=== PATIENT | male | born 1985 | race Caucasian/White ===

== ENCOUNTER → 2018-09-24 15:25 | Outpatient (CLI) | payer OTHER, SELFPAY ==
--- NOTE | 2018-09-24 15:44 | MRI_ITS ---
STUDY: MRI BRAIN WITH AND WITHOUT CONTRAST REASON FOR EXAM: Male, 33 years old. Vertigo, ataxia, headache. TECHNIQUE: Standardized multiplanar fat and water weighted pulse sequences were obtained. Gadavist 7 IV was administered for the contrast portion of the examination. COMPARISON: None. FINDINGS: Normal size of the ventricles and extra-axial spaces for the patient's age. Normal white matter tracts of the supratentorial brain. Normal bilateral basal ganglia. Normal thalami. There is no extra-axial fluid accumulation. Normal flow voids within the major intracranial circulation suggesting patency by spin echo criteria. Normal venous enhancement. There is no enhancing intra-axial or extra-axial abnormality. Normal sella turcica, pituitary gland, infundibular stalk, optic chiasm and hypothalamus. Normal tectal plate and pineal gland. Normal midbrain, von and medulla. Normal cerebellum. Normal basal cisterns. Normal bilateral temporal bones. Normal bilateral internal auditory canals. No demonstrated orbital abnormality, within the constraints of a routine brain study. Normal visualized paranasal sinuses. Normal calvarium and skull base. Normal visualized soft tissue structures. Normal visualized upper cervical spine. MRI/Brain W/WO Contrast IMPRESSION: Normal unenhanced and enhanced MRI of the brain. Electronically Signed: Marian Ortiz MD at 19:01 EST Tel , Service support ,
== END ==
PROVIDERS: Referring Provider Psychiatry & Neurology Neurology; Visit Provider Psychiatry & Neurology Neurology
DX: R27.0 Ataxia, unspecified (principal)
CPT/HCPCS: 70553; A9585

== ENCOUNTER 2018-10-17 10:57 | Emergency (ER) | payer OTHER, SELFPAY ==
[2018-10-17 10:57] VITALS: BP 121/88; PULSE 102; RESP 18; TEMP 36.6; O2SAT 99; BMI 22.2
--- NOTE | 2018-10-17 10:59 | NURSING ---
NO OLD EKGS
--- NOTE | 2018-10-17 11:38 | EKG12_ITS ---
Test Reason : CP Blood Pressure : / mmHG Vent. Rate : 076 BPM Atrial Rate : 076 BPM P-R Int : 148 ms QRS Dur : 100 ms QT Int : 348 ms P-R-T Axes : 076 063 048 degrees QTc Int : 391 ms Normal sinus rhythm Normal ECG Confirmed by KURT CLOUD, JOANNA ([id number]), scientific publications editor SANDY MCKEON ([id number]) on 10/22/2018 9:05:10 AM Referred By: KAYLENE/ANUP Confirmed By:JOANNA HICKS MD
--- NOTE | 2018-10-17 11:38 | RAD_ITS ---
STUDY: X-RAY CHEST REASON FOR EXAM: Male, 33 years old. Chest pressure for 2 weeks TECHNIQUE: PA and lateral views of the chest. COMPARISON: None. FINDINGS: EKG leads project over the chest. The lungs are clear but hyper expanded. There is no demonstrated pleural abnormality. Normal size heart. Normal mediastinum and tyler. Normal visualized pulmonary arteries. Normal visualized aortic arch and descending thoracic aorta. Normal visualized thoracic spine. Normal visualized ribs, clavicles, and shoulders. There is no demonstrated abnormality of the visualized soft tissue structures of the upper abdomen. RAD/Chest PA and Lateral IMPRESSION: No airspace consolidation or pleural effusion. Electronically Signed: Larry Moya MD at 12:17 EDT , Service support ,
--- NOTE | 2018-10-17 11:42 | ED.VISSUMM ---
- ER Visit Summary Date of Service: 10/17/18 Chief Complaint: Chest pain History of Present Illness: The patient is a 33 M who presents for 2 weeks of intermittent substernal chest discomfort. Patient states it is a gas-like pressure sensation that makes him feel like he has to belch. It radiates downward into the epigastrium. There is no radiation to the right or left chest, arms, neck, back. No shortness of breath, fever, cough, nausea or vomiting, back pain, or other complaints. There is no association with food or activity. Patient states the episodes are fairly consistent throughout the day. Patient has been on Topamax recently for vertigo and had his dose increased to 50 mill grams twice daily prior to onset of these symptoms. He has then been on a Z-Felix and is currently on Levaquin for otitis media from his ear nose throat doctor. Patient states he has been getting tingling in his fingers so he stopped the Topamax 2 days ago on his own. Physical Examination: Vital signs: afebrile, hemodynamically stable, no hypoxia on room air General: well nourished, well developed, in no distress Skin: warm, dry, no rash, no pallor HEENT: normocephalic and atraumatic; PERRL, EOMI, moist mucous membranes Cardiovascular: regular rate and rhythm without murmurs, no peripheral edema, 2+ pulses all distal extremities Respiratory: No increased work of breathing, lungs are clear to auscultation bilaterally, no rales, rhonchi or wheezing Abdominal: Abdomen is soft, nontender with normoactive bowel sounds, no guarding or rebound, no masses MSK: Moves all extremities, no deformities, normal strength Neuro: Awake and alert, oriented ?4. No facial droop, sensation and motor function intact and symmetric Test Results: Abnormal Lab Results 10/17/18 10/17/18 11:15 11:15 WBC 4.2 L RBC 5.14 Hgb 15.8 Hct 44.4 MCV 86.4 MCH 30.7 MCHC 35.6 RDW 11.4 L RDW Differential 35.4 Plt Count 208 MPV 11.1 Immature Gran % (Auto) 0.200 Neut % (Auto) 49.8 Lymph % (Auto) 39.2 [place] % (Auto) 10.4 H Eos % (Auto) 0.2 Baso % (Auto) 0.2 Absolute Neuts (auto) 2.1 Absolute Lymphs (auto) 1.66 Total Counted Not Reportable Sodium 141 Potassium 3.4 L Chloride 110 H Carbon Dioxide 25.0 Anion Gap 6 BUN 17 Creatinine 1.00 Estim Creat Clear Calc 104.48 Est GFR (MDRD) Af Amer 111 Est GFR (MDRD) Non-Af 92 BUN/Creatinine Ratio 17.1 Glucose 87 Calcium 8.8 Magnesium 2.1 Total Bilirubin 1.40 H AST 18 ALT 23 Alkaline Phosphatase 75 Troponin I < 0.015 Total Protein 7.5 Albumin 4.4 Globulin 3.1 Albumin/Globulin Ratio 1.4 TSH 2.35 Clinical Impression(s) from Imaging Studies Chest X-Ray 10/17/18 11:38 IMPRESSION: No airspace consolidation or pleural effusion. Electronically Signed: Larry Moya MD at 12:17 EDT , Service support , Medications Given Discontinued Medications Al Hydroxide/Mg Hydroxide (Mylanta Ii) 30 ml PO X1 ONE Stop: 10/17/18 11:42 Last Admin: 10/17/18 11:54 Dose: 30 ml Lidocaine HCl (Xylocaine Viscous) 15 ml PO X1 ONE Stop: 10/17/18 11:42 Last Admin: 10/17/18 11:54 Dose: 15 ml Multi-Ingredient GI Drug () 1 each PO X1 ONE Stop: 10/17/18 11:42 Last Admin: 10/17/18 11:55 Dose: 1 each Emergency Department Course and Treatment: Patient's symptoms seem more consistent with a gastrointestinal issue rather than a cardiac issue. Patient is young and healthy and has no risk factors for coronary artery disease. Patient is also been on multiple medications that could have GI side effects. Patient's EKG showed a sinus rhythm without any ischemia, ectopy or QTC prolongation. Chest x-ray showed no acute process. Labs showed no leukocytosis, no significant electrolyte derangements, no hepatic dysfunction. Troponin negative. Thyroid function within normal limits. On reevaluation, patient's upper abdominal complaints had resolved and now he was complaining of a gassy pressure in his lower abdomen. We discussed patient following up with his neurologist to inquire about possible GI side effects from his medications and if there are any alternatives. Patient was prescribed 2 weeks of Pepcid and will use [id number] antacids as needed for symptomatic control. Patient will return if any worsening condition. Patient discharged home. Treatment Plan: [] Disposition: [] Impression: Atypical chest pain, dyspepsia This note was generated with [employer] dictation software. It may contain incorrect words, spelling, and punctuation that were not noted in review of the chart prior to signing ED Disposition - Plan for ED Patient: Disposition: Home or Assisted Living Instructions: ED Chest Pain Atypical Unkn Cause Prescriptions: Famotidine [Pepcid] 20 mg PO BID #28 tab Referrals: Care Physician,No Primary [Primary Care Provider] - Carlton Quiroga MD [NON-STAFF] - Keep Ghassan appointment Additional Instructions: Take the Pepcid twice daily. You may also find relief from [id number] gas medication or antacids, such as Tums, Mylanta or Maalox. Please follow-up with your family doctor, keeping your established appointment but please try to get an earlier appointment for follow-up of this chest and abdominal discomfort. Follow-up with your neurologist to discuss the concern for side effects from the Topamax. If you have any worsening of your condition or any new concerning symptoms, please return immediately to the emergency department for another evaluation.
[2018-10-17 11:48] LABS: Absolute Lymphocyte Count 1.66 X10^3/ul (0.83-4.51); Absolute Neutrophil Count 2.1 X10^3/uL (2.0-7.7); Basophil# 0.01 X10^3/uL; Basophil% 0.2 % (0-1); Eosinophil# 0.01 X10^3/uL; Eosinophils% 0.2 % (0-5); Hematocrit 44.4 % (40-54); Hemoglobin 15.8 g/dl (13.0-16.5); Lymphocyte # 1.66 X10^3/ul (4.0); Lymphocyte % 39.2 % (19-41); Mean Corp Hgb Conc 35.6 g/gl (32-36); Mean Corpuscular Hgb 30.7 pg (27.0-32.0); Mean Corpuscular Volume 86.4 fL (80-94); Mean Platelet Vol. 11.1 fl (6.2-12.0); Monocyte# 0.44 X10^3/uL; Monocyte% 10.4 % (0-10); Neutrophil % 49.8 % (47-70); Platelet Count 208 K/mm3 (150-450); RBC Distribution Width CV 11.4 % (11.6-14.6); RBC Distribution Width SD 35.4 fl (35.1-43.9); Red Blood Count 5.14 M/mm3 (4.6-6.2); White Blood Count 4.2 K/mm3 (4.4-11.0)
[2018-10-17 11:49] LABS: POSITIVE COUNT NO; POSITIVE DIFFERENTIAL NO; POSITIVE MORPHOLOGY NO
[2018-10-17 11:53] VITALS: O2SAT 97
[2018-10-17] MEDS: Mag Hydrox/Al Hydrox/Simeth 30 ML UDC PO (11:54)
[2018-10-17 12:05] LABS: ALB/GLOB Ratio 1.4 RATIO (0.9-2.4); AST(SGOT) 18 U/L (15-37); Alanine Aminotransfer ALT/SGPT 23 U/L (16-61); Albumin, Serum 4.4 g/dL (3.2-5.0); Alkaline Phosphatase 75 U/L (45-117); Anion Gap 6 (5-15); BUN 17 mg/dL (7-18); BUN/Creat Ratio 17.1 RATIO (10-20); Calcium,Total 8.8 mg/dL (8.5-10.1); Chloride 110 mmol/L (98-107); EST Glomerular Filtration Rate 92 mL/min (>60); Est Glom Filt Rate - Afr Amer 111 mL/min (>60); Estimated Creatinine Clearance 104.48 ml/min; Globulin 3.1 g/dL (2.2-4.2); Glucose 87 mg/dL (74-106); Magnesium 2.1 mg/dL (1.6-2.6); Potassium 3.4 mmol/L (3.5-5.1); Protein, Total 7.5 g/dL (6.4-8.2); Sodium Level 141 mmol/L (136-145); Thyroid Stim Hormone (TSH) 2.35 uIU/mL (0.358-3.74)
[2018-10-17 13:00] VITALS: BP 110/67; PULSE 71; RESP 18; O2SAT 98
[2018-10-17 14:27] VITALS: BP 118/69; PULSE 68; RESP 18; O2SAT 98
== END 2018-10-17 14:28 | disposition home or self-care (01) ==
PROVIDERS: Emergency Provider Emergency Medicine
DX: R07.89 Other chest pain (principal); R10.13 Epigastric pain; H66.90 Otitis media, unspecified, unspecified ear; Z79.2 Long term (current) use of antibiotics
CPT/HCPCS: 71046; 80053; 83735; 84443; 84484; 85025; 93005; 99285; A4216

== ENCOUNTER → 2025-04-18 | Outpatient (CLI) | payer OTHER, SELFPAY ==
--- NOTE | 2025-04-18 14:45 | CT_ITS ---
PROCEDURE: LIMITED CHEST CT CARDIAC ONLY 04/18/2025 REASON FOR EXAM: ENCOUNTER FOR SCREENING FOR CARDIOVASCULAR DISORDERS TECHNIQUE: Procedure Code: [id number] Modality: CT Procedure: LIMITED CHEST CT CARDIAC ONLY CT performed for coronary artery calcification scoring. One or more dose reduction techniques were used (e.g., Automated exposure control, adjustment of the mA and/or kV according to patient size, use of iterative reconstruction technique). RADIATION DOSE SUMMARY: CTDlvol: 12.19 mGy DLP: 438.83 mGycm COMPARISON: None. CT/Limited Chest CT Cardiac Only IMPRESSION: Limited imaging of the lungs demonstrates no acute process. No pleural effusion or pneumothorax is seen in visualized areas. No adenopathy is noted. The visualized upper abdomen demonstrates no significant abnormality. Reading Location: [place] [id number]
--- OUTSIDE RECORDS SUMMARY | 2025-04-18 22:28 | XMS RPT_ITS | CCD ---
Author Organization [facility] Care Team Providers Care Rubber Moulding Machine Operator Name Role Phone Carlton Katz MD Primary Care Provider ADELINE PILLAI Attending Unavailable CARLTON KATZ Referring Unavailable CARLTON KATZ Primary Care Unavailable ADELINE PILLAI Referring Unavailable CARLTON KATZ Primary Care Unavailable ADELINE PILLAI Referring Unavailable CARLTON KATZ Primary Care Unavailable ADELINE PILLAI Referring Unavailable CARLTON KATZ Primary Care Unavailable Carlton Katz MD Primary Care Provider Knoble MACHINE I TRIMMER.Katy SINGER Unavailable Chandrika Yoo PA-C Unavailable Carlton Katz MD Primary Care Provider [phone] Knoble MACHINE I TRIMMER.Katy SINGER Unavailable Knoble MACHINE I TRIMMER.Katy SINGER Unavailable Chandrika Yoo PA-C Unavailable CARLTON KATZ Attending Unavailable CARLTON KATZ Primary Care Unavailable CARLTON KATZ Referring Unavailable CARLTON KATZ Primary Care Unavailable MENA MIRANDA Attending Unavailable KEENAN LUCAS Referring Unavailable CARLTON KATZ Primary Care Unavailable CARLTON KATZ Referring Unavailable CARLTON KATZ Primary Care Unavailable Carlton Katz Referring Unavailable Carlton Katz Attending Unavailable Carlton Katz Primary Care Unavailable Allergies Allergy Classification Reported Allergen(s) Allergy Type Date of Onset Reaction(s) Facility (20 sources) Doxycycline; Translations: [DOXYCYCLINE] Drug Allergy 07-07-2022 GI Upset [facility] Work Phone: Medications Current Medications Medication Drug Class(es) Dates Sig (Normalized) Sig (Original) amoxicillin 500 mg oral capsule (2 sources) Penicillin-class Antibacterial Start: 12-10-2023 End: 12-17-2023 take 2 capsules by mouth three times daily amoxicillin (AMOXIL) 500 mg capsule Take 2 capsules by mouth three times a day for 7 days. 42 capsule 0 12/10/2023 12/17/2023 Active amoxicillin 875 mg / clavulanate 125 mg oral tablet (2 sources) Penicillin-class Antibacterial Start: 09-10-2023 End: 09-17-2023 take 1 tablet by mouth twice daily amoxicillin-clavulan ate potassium (AUGMENTIN) 875-125 mg per tablet Indications: Sinobronchitis , Otitis media with effusion, left Take 1 tablet by mouth two times a day for 7 days. 14 tablet 0 09/10/2023 09/17/2023 Active Start: 07-07-2022 End: 07-14-2022 take 1 tablet by mouth twice daily amoxicillin-clavulanic acid (AUGMENTIN) 875-125 mg per tablet Indications: Bacterial pneumonia Take 1 tablet by mouth twice daily for 7 days. 14 tablet 0 07/07/2022 07/14/2022 Active Comment on above: Take 1 tablet by lona th twice daily for 7 days. Take 1 tablet by lona th two times a day for 7 days. ascorbic acid 500 mg oral tablet (19 sources) Vitamin C take 2 tablets by mouth once daily ascorbic acid, vitamin C, (VITAMIN C) 500 mg tablet Take 500 mg by mouth once daily. Take 2 tablets daily Active brompheniramine maleate 0.4 mg/ml / dextromethorphan hydrobromide 2 mg/ml / pseudoephedrine hydrochloride 6 mg/ml oral solution (2 sources) alpha-Adrenergic Agonist, Uncompetitive U-usgacy-H-aspartate Receptor Antagonist, Sigma-1 Agonist Start: 023 End: 023 take 5 mL by mouth four times daily as needed Brompheniramine-Pse udoeph-DM (BROMFED DM) 2-30-10 mg/5 mL syrup Indications: Sore throat , Viral URI with cough Take 5 mL by mouth four times daily as needed. 118 mL 0 08/10/2022 02/03/2023 Discontinued (Course of therapy completed) Comment on above: Take 5 mL by mouth f our times daily as needed. 12 hr buPROPion hydrochloride 100 mg extended release oral tablet (3 sources) Aminoketone Start: 025 take 1 tablet by mouth twice daily, then take 1 tablet by mouth once daily, then take 1 tablet by mouth twice daily buPROPion SR (WELLBUTRIN SR) 100 mg 12 hr tablet Take 1 tablet by mouth two times a day. Take one tab a day for 2 weeks then go to one twice a day 180 tablet 1 02/08/2025 Active codeine phosphate 2 mg/ml / guaiFENesin 20 mg/ml oral solution (2 sources) Opioid Agonist Start: End: take 10 mL by mouth three times daily as needed for cough codeine-guaiFENesin (GUAIFENESIN AC) 10-100 mg/5 mL syrup Indications: Viral bronchitis Take 10 mL by mouth three times daily as needed (as needed for cough at night, will cause sedation. do not miss with tessalon) for up to 5 days. 150 mL 0 06/30/2022 07/05/2022 Active Comment on above: Take 10 mL by mouth three times daily as needed (as needed for cough at night, will cause sedation. do not miss with tessalon) for up to 5 days. CPAP (16 sources) Start: CPAP Indications: CE (obstructive sleep apnea) Initiate Auto PAP @ 5-20 cm of water with humidification. Mask (per patient preference) optional chin strap (if indicated) , filters, tubing, humidifier and lifetime supplies. 1 Each 03/01/2024 Active Start: 03-01-2024 CPAP Indicatio ns: CE (obstructive sleep apnea) Initiate Auto PAP @ 5-20 cm of water with humidification. Mask (per patient preference) optional chin strap (if indicated) , filters, tubing, humidifier and lifetime supplies. 1 Each 0 03/01/2024 Active CPAP/BIPAP/OTHER (13 sources) Start: 05-20-2024 End: 10-05-2051 CPAP/BIPAP/OTHER Type .CPAPSettings into a note to see current settings/supplies/DME information. 1 Each 05/20/2024 10/05/2051 Active bmfqathqnfUQUCE-syxxvd-c idocaine (BMX 1:1:1) 1:1:1 liqd (2 sources) Start: 08-10-2022 End: 02-03-2023 take 5 mL by mouth four times daily ajrtolbmnhBBUOP-bwzfet-rkdiw jerry (BMX 1:1:1) 1:1:1 liqd Indications: Sore throat Take 5 mL by mouth four times daily. 120 mL 0 08/10/2022 02/03/2023 Discontinued (Course of therapy completed) Start: 08-10-2022 take 5 mL by mouth four times daily cxyasgcbqvDMGCQ-tonvfq-apyuohrwz (BMX 1: 1:1) 1:1:1 liqd Indications: Sore throat Take 5 mL by mouth four times daily. 120 mL 0 08/10/2022 Active Comment on above: Take 5 mL by mouth f our times daily. fluticasone propionate 0.05 mg/actuat metered dose nasal spray (6 sources) Corticosteroid Start: 06-07-20 End: 02-04-20 take 2 spray(s) by mouth once daily fluticasone (FLONASE) 50 mcg/actuation nasal spray Indications: URI, acute , ETD (Eustachian tube dysfunction), bilateral Use 2 Sprays in each nostril once daily. Rinse mouth after use. 1 Each 0 06/07/2022 02/03/2023 Discontinued (Course of therapy completed) Comment on above: Use 2 Sprays in each nostril once daily. Rinse mouth after use. Inhalational Spacing Device (1 source) Start: 09-10-19 End: 09-10-19 Inhalational Spacing Device Indications: Sinobronchitis 1 Device one time only for 1 dose. 1 Each 0 09/10/2023 09/10/2023 Active Comment on above: 1 Device one time on ly for 1 dose. lidocaine hydrochloride 20 mg/ml mucous membrane topical solution (2 sources) Antiarrhythmic, Amide Local Anesthetic Start: 08-10-19 End: 02-04-20 LIDOCAINE VISCOUS 2 % solution Indications: Sore throat Take 15 mL by mouth every 6 hours as needed. 100 mL 0 08/10/2022 02/03/2023 Discontinued (Discontinued by another Health Care Provider) Comment on above: Take 15 mL by mouth every 6 hours as needed. melatonin 10 mg oral tablet (14 sources) melatonin 10 mg tab Take by mouth at bedtime as needed for insomnia. Active MULTIVITAMIN ORAL (19 sources) take 1 tablet by mouth once daily MULTIVITAMIN ORAL Take by mouth. Take one tablet daily Active take 1 tablet by mouth once ashley y MULTIVITAMIN ORAL Take by mouth. Take one tablet daily 0 Active predniSONE 20 mg oral tablet (5 sources) Start: 09-10-2023 End: 09-14-2023 take 2 tablets by mouth once daily at mealtime predniSONE (DELTASONE) 20 mg tablet Indications: Sinobronchitis Take 2 tablets by mouth once daily for 4 days. Take daily with food. 8 tablet 0 09/10/2023 09/14/2023 Active Start: 08-10-2022 End: 08-15-2022 take 5 tablets by mouth once daily, then take 4 tablets by mouth once daily, then take 3 tablets by mouth once daily, then take 2 tablets by mouth once daily, then take 1 tablet by mouth once daily predniSONE (DELTASONE) 10 mg tablet Indications: Sore throat , Viral URI with cough Take 5 tablets by mouth once daily for 1 day, THEN 4 tablets once daily for 1 day, THEN 3 tablets once daily for 1 day, THEN 2 tablets once daily for 1 day, THEN 1 tablet once daily for 1 day. 15 tablet 0 08/10/2022 08/15/2022 Active Start: 06-30-2022 End: 07-05-2022 take 2 tablets by mouth once daily predniSONE (DELTASONE) 20 mg tablet Take 2 tablets by mouth once daily for 5 days. 10 tablet 0 06/30/2022 07/05/2022 Active Start: 06-07-2022 End: 06-12-2022 take 2 tablets by mouth once daily predniSONE (DELTASONE) 20 mg tablet Indications: URI, acute , ETD (Eustachian tube dysfunction), bilateral Take 2 tablets by mouth once daily for 5 days. 10 tablet 0 06/07/2022 06/12/2022 Active Comment on above: Take 2 tablets by mo uth once daily for 5 days. Take 5 tablets by mo uth once daily for 1 day, THEN 4 tablets once daily for 1 day, THEN 3 tablets once daily for 1 day, THEN 2 tablets once daily for 1 day, THEN 1 tablet once daily for 1 day. Take 2 tablets by mo ut once daily for 4 days. Take daily with food. sertraline 50 mg oral tablet (20 sources) Serotonin Reuptake Inhibitor Start: 02-09-2024 End: 11-16-2024 take 1 tablet by mouth once daily sertraline (ZOLOFT) 50 mg tablet Take 1 tablet by mouth once daily. 90 tablet 11/16/2024 Active Completed/Discontinued Medications Medication Drug Class(es) Dates Sig (Normalized) Sig (Original) [id number] 200 actuat albuterol 0.09 mg/actuat metered dose inhaler (4 sources) beta2-Adrenergic Agonist Start: 09-10-2023 End: 02-09-2024 take 2 puff(s) by inhalation every four hours as needed for wheezing albuterol HFA (PROVENTIL HFA, VENTOLIN HFA) 90 mcg/actuation inhaler Indications: Sinobronchitis Inhale 2 Puffs as instructed every 4 hours as needed for wheezing/shortness of breath. 1 Each 09/10/2023 02/09/2024 Discontinued (Course of therapy completed) Comment on above: Inhale 2 Puffs as in structed every 4 hours as needed for wheezing/shortness of breath. benzonatate 100 mg oral capsule (7 sources) Non-narcotic Antitussive Start: 12-10-2023 End: 02-09-2024 take 1 capsule by mouth every eight hours as needed benzonatate (TESSALON PERLE) 100 mg capsule Take 1 capsule by mouth three times a day as needed for cough. 21 capsule 0 12/10/2023 02/09/2024 Discontinued (Course of therapy completed) Start: 06-30-2022 End: 02-03-2023 take 2 capsules by mouth every eight hours as needed benzonatate (TESSALON PERLES) 100 mg capsule Take 2 capsules by mouth three times daily as needed. 30 capsule 0 06/30/2022 02/03/2023 Discontinued (Course of therapy completed) Comment on above: Take 2 capsules by m out three times daily as needed. doxycycline hyclate 100 mg oral tablet (2 sources) Tetracycline-class Drug Start: 06-30-2022 End: 07-07-2022 take 1 tablet by mouth twice daily doxycycline (VIBRA-TABS) 100 mg tablet Take 1 tablet by mouth twice daily for 7 days. 14 tablet 0 06/30/2022 07/07/2022 Discontinued (Adverse Reaction) Comment on above: Take 1 tablet by lona th twice daily for 7 days. Problems Active Problems Problem Classification Problem Date Documented Da te Episodic/Chronic Acute bronchitis (1 source) Viral bronchitis; Translations: [Acute bronchitis due to other specified organisms] Episodic Anxiety disorders (20 sources) Acute stress disorder; Translations: [Acute stress reaction] Onset: 02-09-2024 02-09-2024 Chronic Coronary atherosclerosis and other heart disease (3 sources) Stable angina; Translations: [Stable angina (HCC)] Onset: 04-15-2024 04-15-2024 Chronic Disorders of lipid metabolism (20 sources) Mixed hyperlipidemia; Translations: [Mixed hyperlipidemia] Onset: 03-08-2024 03-08-2024 Chronic Essential hypertension (18 sources) Elevated blood pressure; Translations: [Essential (primary) hypertension] 04-15-2024 Chronic Headache; including migraine (1 source) Headache; including migraine; Translations: [Chronic nonintractable headache, unspecified headache type] Onset: 01-02-2021 Malaise and fatigue (1 source) Fatigue; Translations: [Other fatigue] Episodic Other aftercare (1 source) Other terminal worker (current) drug therapy; Translations: [Medication management] Onset: 11-16-2024 Episodic Other lower respiratory disease (2 sources) Cough; Translations: [Acute cough] 12-10-2023 Episodic Other lower respiratory disease (1 source) Snoring; Translations: [Snoring] 02-09-2024 Episodic Other lower respiratory disease (1 source) Apnea; Translations: [Apnea, not elsewhere classified] 02-09-2024 Episodic Other lower respiratory disease (3 sources) Dyspnea; Translations: [Shortness of breath] 04-15-2024 Episodic Other lower respiratory disease (1 source) Cough; Translations: [Acute cough] 06-30-2022 Episodic Other lower respiratory disease (1 source) Shortness of breath; Translations: [SOB (shortness of breath)] Onset: 04-15-2024 Episodic Other nervous system disorders (1 source) Other chronic pain; Translations: [Chronic nonintractable headache, unspecified headache type] Onset: 01-02-2021 Chronic Other screening for suspected conditions (not mental disorders or infectious disease) (20 sources) Patient encounter status; Translations: [Encounter for screening for diabetes mellitus] Onset: 12-09-2018 Episodic Other upper respiratory infections (1 source) Chronic sinusitis; Translations: [Chronic sinusitis, unspecified] 09-10-2023 Chronic Other upper respiratory infections (4 sources) Sore throat symptom; Translations: [Acute pharyngitis, unspecified] Episodic Otitis media and related conditions (2 sources) Dysfunction of bilateral eustachian tubes; Translations: [Other specified disorders of Eustachian tube, bilateral] Episodic Pneumonia (except that caused by tuberculosis or sexually transmitted disease) (2 sources) Bacterial pneumonia; Translations: [Unspecified bacterial pneumonia] Episodic Residual codes; unclassified (1 source) Hypersomnia; Translations: [Hypersomnia, unspecified] 02-09-2024 Chronic Residual codes; unclassified (20 sources) Obstructive sleep apnea syndrome; Translations: [Obstructive sleep apnea (adult) (pediatric)] Onset: 03-01-2024 03-01-2024 Chronic Residual codes; unclassified (1 source) Obstructive sleep apnea (adult) (pediatric); Translations: [CE (obstructive sleep apnea)] Onset: 11-16-2024 Chronic Residual codes; unclassified (1 source) Hypersomnia, unspecified; Translations: [Hypersomnolence] Onset: 02-23-2024 Chronic Residual codes; unclassified (12 sources) Past history of procedure; Translations: [Personal history of other medical treatment] Onset: 05-31-2024 06-01-2024 Episodic Residual codes; unclassified (2 sources) Family history of ischemic heart disease and other diseases of the circulatory system; Translations: [Family history of early CAD] Onset: 12-09-2018 Episodic Screening and history of mental health and substance abuse codes (1 source) Encounter for screening for depression; Translations: [Screening for depression] Onset: 02-08-2025 Episodic Past or Other Problems Problem Classification Problem Date Documented Date Episodic/Chronic Conditions associated with dizziness or vertigo (20 sources) Dizziness; Translations: [Dizziness and giddiness] Onset: 12-09-2018 Episodic Headache; including migraine (20 sources) Headache; Translations: [Chronic nonintractable headache] Onset: 12-09-2018 01-02-2021 Episodic Other lower respiratory disease (1 source) Snoring; Translations: [Snores] Onset: 02-23-2024 Episodic Other lower respiratory disease (1 source) Apnea, not elsewhere classified; Translations: [Witnessed episode of apnea] Onset: 02-23-2024 Episodic Residual codes; unclassified (20 sources) FH: premature coronary heart disease; Translations: [Family history of ischemic heart disease and other diseases of the circulatory system] Onset: 12-09-2018 12-09-2018 Episodic Results Test Name Value Interpretation Reference Range Facil ity CNOVon 02-08-2025 CNOV Office Visit (FAMPWS ) DYLAN BARRON ([id number]) 1985 M Date Time Provider Department 02/08/25 8:00 AM [facility] During your visit today, we recorded the following information about you: Pulse Respiration Blood pressure Weight 68/minute 16/minute 120/80 83.8 kg Height 1.778 m Carlton Katz MD 02/08/2025 10:02 AM Signed Chief Complaint Patient presents with: Well Adult HPI Dylan Barron is a 39 year old male who presents here today for a Physical. Patient with Hx of Headache's, mixed Hyperlipidemia, HTN, CE as well as those reviewed and addressed below in ROS. Following with Cardiology. Following with Neuro for CE. Discuss Zoloft, notes weight gain with medication. Dylan reports that his current sertraline 50 mg regimen has effectively managed his anxiety and reduced the frequency of headaches. However, he has experienced weight gain and persistent fatigue since initiating the medication. He currently takes sertraline in the morning. He denies any recent fevers, frequent headaches, sudden changes in hearing or vision, issues with his nose or throat, lumps or swelling in his neck, wheezing, hemoptysis, chest pain, palpitations, leg swelling, nausea, emesis, diarrhea, heartburn, dysuria, hematuria, unusual muscle or joint aches, skin lesions, rashes, sores, easy bruising or bleeding, changes in heat or cold tolerance, increased thirst, syncope, seizures, or tremors. He has a family history of heart disease, with his brother being affected. Dylan underwent a stress test and echocardiogram last year, both of which were unremarkable. He inquires about the potential benefits of a calcium CT scan for further evaluation. Dylan has not had any surgeries in the past year and reports no new health issues among his blood relatives. He has not yet completed a skin check with Derm as previously recommended. Past medical history, appointments, medications, allergies reviewed. Previous Medical History PAST MEDICAL HISTORY Diagnosis Date Chronic nonintractable headache 12/09/2018 may be migraines. Dizziness 12/09/2018 Seeing Neurology, Dr. bOrien in [facility] Elevated blood pressure reading in office with diagnosis of hypertension Family history of early CAD 12/09/2018 Brother at 36 H/O echocardiogram 05/31/2024 EF 50?5%, no significant valvular abnormalities History of stress test 05/31/2024 EF 59%, no ischemia or infarction Mixed hyperlipidemia CE (obstructive sleep apnea) 03/01/2024 Stress reaction 02/09/2024 Previous Surgical History PAST SURGICAL HISTORY Procedure Laterality Date NONE Family History FAMILY HISTORY Problem Relation Age of Onset Hyperlipidemia Mother Diabetes Father type 2 Heart Attack Brother 36 09/2018 Heart Maternal Grandmother No Known Problems Maternal Grandfather Diabetes Paternal Grandfather Prostate Cancer Maternal Uncle ? Heart Maternal cousin Alzheimer's Disease No Family History Colon Cancer No Family History Breast Cancer No Family History Ovarian cancer No Family History Uterine Cancer No Family History Hypertension No Family History Kidney Disease No Family History Seizures No Family History Stroke No Family History Thyroid No Family History Patient Allergies ALLERGIES Allergen Reactions Doxycycline GI Upset Stomach pain Current Medications Current Outpatient Medications on File Prior to Visit Medication Sig sertraline (ZOLOFT) 50 mg tablet Take 1 tablet by mouth once daily. CPAP/BIPAP/OTHER Type .CPAPSettings into a note to see current settings/supplies/DME information. melatonin 10 mg tab Take by mouth at bedtime as needed for insomnia. CPAP Initiate Auto PAP @ 5-20 cm of water with humidification. Mask (per patient preference) optional chin strap (if indicated) , filters, tubing, humidifier and lifetime supplies. MULTIVITAMIN ORAL Take by mouth. Take one tablet daily ascorbic acid, vitamin C, (VITAMIN C) 500 mg tablet Take 500 mg by mouth once daily. Take 2 tablets daily No current facility-administered medications on file prior to visit. Social History Social History Tobacco Use Smoking status: Never Smokeless tobacco: Never Substance Use Topics Alcohol use: Yes Comment: very rare Drug use: Never Review of Symptoms REVIEW OF SYSTEMS GENERAL: No weight loss, malaise or fevers HEENT: Negative for frequent or significant headaches, No changes in hearing or vision, no nose bleeds or other nasal problems NECK: Negative for lumps, goiter, pain and significant neck swelling RESPIRATORY: Negative for cough, hemoptysis, wheezing, COPD, dyspnea or shortness of breath CARDIOVASCULAR: Negative for chest pain, leg swelling, hypertension, CHF or palpitations GI: No nausea, vomiting, or diarrhea and No heartburn or reflux symptoms : No history of dysuria, (more content not included)... Normal [facility] CBC W Auto Differential pane l (Bld)on 01-27-2025 Basophils (Bld) [#/Vol] 10*3/uL Normal <0.11 [facility] Comment on above: Order Comment: Speci franc Type: BLOOD SPECIMEN Ordering Facility: [facility] Address: [address] [place] [address] Performed By: #### 5 7021-8 #### [facility] CLIA [id number] [address] [place] [address] [place] Basophils/100 WBC (Bld) 0.5 % Normal [facility] Comment on above: Order Comment: Urszula bruner Type: BLOOD SPECIMEN Ordering Facility: [facility] Address: [address] [place] [address] Performed By: #### 5 7021-8 #### [facility] CLIA [id number] [address] [place] [address] [place] Differential cell count method Nom (Bld) Auto Normal [facility] Comment on above: Order Comment: Urszula bruner Type: BLOOD SPECIMEN Ordering Facility: [facility] Address: [address] [place] [address] Performed By: #### 5 7021-8 #### [facility] CLIA [id number] [address] [place] [address] [place] Eosinophils (Bld) [#/Vol] 0.05 10*3/uL Normal <0.46 [facility] Comment on above: Order Comment: Speci men Type: BLOOD SPECIMEN Ordering Facility: [facility] Address: [address] [place] [address] Performed By: #### 5 7021-8 #### [facility] CLIA [id number] [address] [place] [address] [place] Eosinophils/100 WBC (Bld) 1.2 % Normal [facility] Comment on above: Order Comment: Speci men Type: BLOOD SPECIMEN Ordering Facility: [facility] Address: [address] [place] [address] Performed By: #### 5 7021-8 #### [facility] CLIA [id number] [address] [place] [address] [place] Erythrocyte distribution width (RBC) [Ratio] 11.3 % Low 11.5-15.0 [facility] Comment on above: Order Comment: Speci men Type: BLOOD SPECIMEN Ordering Facility: [facility] Address: [address] [place] [address] Performed By: #### 5 7021-8 #### [facility] CLIA [id number] [address] [place] [address] [place] Hematocrit (Bld) [Volume fraction] 46.5 % Normal 39.0-51.0 [facility] Comment on above: Order Comment: Speci men Type: BLOOD SPECIMEN Ordering Facility: [facility] Address: [address] [place] [address] Performed By: #### 5 7021-8 #### [facility] CLIA [id number] [address] [place] [address] [place] Hemoglobin (Bld) [Mass/Vol] 16.1 g/dL Normal 13.0-17.0 [facility] Comment on above: Order Comment: Speci men Type: BLOOD SPECIMEN Ordering Facility: [facility] Address: [address] [place] [address] Performed By: #### 5 7021-8 #### [facility] CLIA [id number] [address] [place] [address] [place] Immature granulocytes (Bld) [#/Vol] 10*3/uL Normal <0.10 [facility] Comment on above: Order Comment: Speci men Type: BLOOD SPECIMEN Ordering Facility: [facility] Address: [address] [place] [address] Performed By: #### 5 7021-8 #### [facility] CLIA [id number] [address] [place] [address] [place] Immature granulocytes/100 WBC (Bld) 0.2 % Normal [facility] Comment on above: Order Comment: Speci men Type: BLOOD SPECIMEN [facility] [facility] Address: [address] [place] [address] Performed By: #### 5 7021-8 #### [facility] CLIA [id number] [address] [place] [address] [place] Lymphocytes (Bld) [#/Vol] 1.47 10*3/uL Normal 1.00-4.00 [facility] Comment on above: Order Comment: Speci men Type: BLOOD SPECIMEN Ordering Facility: [facility] Address: [address] [place] [address] Performed By: #### 5 7021-8 #### [facility] CLIA [id number] [address] [place] [address] [place] Lymphocytes/100 WBC (Bld) 35.3 % Normal [facility] Comment on above: Order Comment: Speci men Type: BLOOD SPECIMEN Ordering Facility: [facility] Address: [address] [place] [address] Performed By: #### 5 7021-8 #### [facility] CLIA [id number] [address] [place] [address] [place] MCH (RBC) [Entitic mass] 31.1 pg Normal 26.0-34.0 [facility] Comment on above: Order Comment: Speci men Type: BLOOD SPECIMEN Ordering Facility: [facility] Address: [address] [place] [address] Performed By: #### 5 7021-8 #### [facility] CLIA [id number] [address] [place] [address] [place] MCHC (RBC) [Mass/Vol] 34.6 g/dL Normal 30.5-36.0 [facility] Comment on above: Order Comment: Speci men Type: BLOOD SPECIMEN Ordering Facility: [facility] Address: [address] [place] [address] Performed By: #### 5 7021-8 #### [facility] CLIA [id number] [address] [place] [address] [place] MCV (RBC) [Entitic vol] 89.8 fL Normal 80.0-100.0 [facility] Comment on above: Order Comment: Speci men Type: BLOOD SPECIMEN Ordering Facility: [facility] Address: [address] [place] [address] Performed By: #### 5 7021-8 #### [facility] CLIA [id number] [address] [place] [address] [place] Monocytes (Bld) [#/Vol] 0.42 10*3/uL Normal <0.87 [facility] Comment on above: Order Comment: Speci men Type: BLOOD SPECIMEN Ordering Facility: [facility] Address: [address] [place] [address] Performed By: #### 5 7021-8 #### [facility] CLIA [id number] [address] [place] [address] [place] Monocytes/100 WBC (Bld) 10.1 % Normal [facility] Comment on above: Order Comment: Speci men Type: BLOOD SPECIMEN Ordering Facility: [facility] Address: [address] [place] [address] Performed By: #### 5 7021-8 #### [facility] CLIA [id number] [address] [place] [address] [place] Neutrophils (Bld) [#/Vol] 2.20 10*3/uL Normal 1.45-7.50 [facility] Comment on above: Order Comment: Speci men Type: BLOOD SPECIMEN Ordering Facility: [facility] Address: [address] [place] [address] Performed By: #### 5 7021-8 #### [facility] CLIA [id number] [address] [place] [address] [place] Neutrophils/100 WBC (Bld) 52.7 % Normal [facility] Comment on above: Order Comment: Speci men Type: BLOOD SPECIMEN Ordering Facility: [facility] Address: [address] [place] [address] Performed By: #### 5 7021-8 #### [facility] CLIA [id number] [address] [place] [address] [place] Nucleated RBC (Bld) [#/Vol] 10*3/uL Normal <0.01 [facility] Comment on above: Order Comment: Speci men Type: BLOOD SPECIMEN Ordering Facility: [facility] Address: [address] [place] [address] Performed By: #### 5 7021-8 #### [facility] CLIA [id number] [address] [place] [address] [place] Nucleated RBC/100 WBC (Bld) [Ratio] 0.0 /[address] [facility] Comment on above: Order Comment: Speci men Type: BLOOD SPECIMEN Ordering Facility: [facility] Address: [address] [place] [address] Performed By: #### 5 7021-8 #### [facility] CLIA [id number] [address] [place] [address] [place] Platelet mean volume (Bld) [Entitic vol] 11.6 fL Normal 9.0-12.7 [facility] Comment on above: Order Comment: Speci men Type: BLOOD SPECIMEN Ordering Facility: [facility] Address: [address] [place] [address] Performed By: #### 5 7021-8 #### [facility] CLIA [id number] [address] [place] [address] [place] Platelets (Bld) [#/Vol] 198 10*3/uL Normal 150-400 [facility] Comment on above: Order Comment: Speci men Type: BLOOD SPECIMEN Ordering Facility: [facility] Address: [address] [place] [address] Performed By: #### 5 7021-8 #### [facility] CLIA [id number] [address] [place] [address] [place] RBC (Bld) [#/Vol] 5.18 10*6/uL Normal 4.20-6.00 [facility] Comment on above: Order Comment: Speci men Type: BLOOD SPECIMEN Ordering Facility: [facility] Address: [address] [place] [address] Performed By: #### 5 7021-8 #### [facility] CLIA [id number] [address] [place] [address] [place] WBC (Bld) [#/Vol] 4.17 10*3/uL Normal 3.70-11.00 [facility] Comment on above: Order Comment: Speci men Type: BLOOD SPECIMEN Ordering Facility: [facility] Address: [address] [place] [address] Performed By: #### 5 7021-8 #### [facility] CLIA [id number] [address] [place] [address] [place] Comprehensive metabolic 2000 panelon 01-27-2025 Albumin [Mass/Vol] 4.6 g/dL Normal 3.9-4.9 [facility] Comment on above: Order Comment: Speci men Type: URINE SPECIMEN Ordering Facility: [facility] Address: [address] [place] [address] Performed By: #### 2 4356-8 #### [facility] CLIA [id number] [address] [place] [address] [place] ALP [Catalytic activity/Vol] 63 U/L Normal 38-113 [facility] Comment on above: Order Comment: Speci men Type: URINE SPECIMEN Ordering Facility: [facility] Address: [address] [place] [address] Performed By: #### 2 4356-8 #### [facility] CLIA [id number] [address] [place] [address] [place] ALT [Catalytic activity/Vol] 39 U/L Normal 10-54 [facility] Comment on above: Order Comment: Speci men Type: URINE SPECIMEN Ordering Facility: [facility] Address: [address] [place] [address] Performed By: #### 2 4356-8 #### [facility] CLIA [id number] [address] [place] [address] [place] Anion gap [Moles/Vol] 11 mmol/L Normal 8-15 [facility] Comment on above: Order Comment: Speci men Type: URINE SPECIMEN Ordering Facility: [facility] Address: [address] [place] [address] Performed By: #### 2 4356-8 #### [facility] CLIA [id number] [address] [place] [address] [place] AST [Catalytic activity/Vol] 31 U/L Normal 14-40 [facility] Comment on above: Order Comment: Speci men Type: URINE SPECIMEN Ordering Facility: [facility] Address: [address] [place] [address] Performed By: #### 2 4356-8 #### [facility] CLIA [id number] [address] [place] [address] [place] Bilirubin [Mass/Vol] 0.7 mg/dL Normal 0.2-1.3 [facility] Comment on above: Order Comment: Speci men Type: URINE SPECIMEN Ordering Facility: [facility] Address: [address] [place] [address] Performed By: #### 2 4356-8 #### [facility] CLIA [id number] [address] [place] [address] [place] Calcium [Mass/Vol] 9.9 mg/dL Normal 8.5-10.2 [facility] Comment on above: Order Comment: Speci men Type: URINE SPECIMEN Ordering Facility: [facility] Address: [address] [place] [address] Performed By: #### 2 4356-8 #### [facility] CLIA [id number] [address] [place] [address] [place] Chloride [Moles/Vol] 102 mmol/L Normal 98-107 [facility] Comment on above: Order Comment: Speci men Type: URINE SPECIMEN Ordering Facility: [facility] Address: [address] [place] [address] Performed By: #### 2 4356-8 #### [facility] CLIA [id number] [address] [place], [place] [address] [place] CO2 [Moles/Vol] 27 mmol/L Normal 22-30 [facility] Comment on above: Order Comment: Speci men Type: URINE SPECIMEN Ordering Facility: [facility] Address: [address] [place] [address] Performed By: #### 2 4356-8 #### [facility] CLIA [id number] [address] [place] [address] [place] [facility] Creatinine [Mass/Vol] 0.94 mg/dL Normal 0.73-1.22 [facility] Comment on above: Order Comment: Urszula bruner Type: URINE SPECIMEN Ordering Facility: [facility] Address: [address] [place] [address] Performed By: #### 2 4356-8 #### [facility] CLIA [id number] [address] [place] [address] Creatinine and Glomerular filtration rate.predicted panel (S/P/Bld) 106 mL/min/1.73m??? Normal >=60 [facility] Comment on above: Order Comment: Urszula bruner Type: URINE SPECIMEN Ordering Facility: [facility] Address: [address] [place] [address] Result Comment: Mindi mated Glomerular Filtration Rate (eGFR) is calculated using the 2020 CKD-EPI creatinine equation. This equation utilizes serum creatinine, sex, and age as parameters. The creatinine assay has traceable calibration to isotope dilution-mass spectrometry. Refer to KDIGO guidelines for clinical interpretation. In patients with unstable renal function, e.g. those with acute kidney injury, the eGFR may not accurately reflect actual GFR. Performed By: #### 2 4356-8 #### [facility] CLIA [id number] [address] [place] [address] [place] Glucose [Mass/Vol] 96 mg/dL Normal 74-99 [facility] Comment on above: Order Comment: Urszula bruner Type: URINE SPECIMEN Ordering Facility: [facility] Address: [address] [place] [address] Result Comment: The [place] Diabetes Association (ADA) provides guidance for cutoff values for fasting glucose and random glucose. The ADA defines fasting as no caloric intake for at least 8 hours. Fasting plasma glucose results between 100 to 125 mg/dL indicate increased risk for diabetes (prediabetes). Fasting plasma glucose results greater than or equal to 126 mg/dL meet the criteria for diagnosis of diabetes. In the absence of unequivocal hyperglycemia, results should be confirmed by repeat testing. In a patient with classic symptoms of hyperglycemia or hyperglycemic crisis, random plasma glucose results greater than or equal to 200 mg/dL meet the criteria for diagnosis of diabetes. Reference: Standards of Medical Care in Diabetes 2016, [place] Diabetes Association. Diabetes Care. 2016.39(Suppl 1). Performed By: #### 2 4356-8 #### [facility] CLIA [id number] [address] [place], [place] [address] [place] Potassium [Moles/Vol] 4.3 mmol/L Normal 3.7-5.1 [facility] Comment on above: Order Comment: Speci men Type: URINE SPECIMEN Ordering Facility: [facility] Address: [address] [place] [address] Performed By: #### 2 4356-8 #### [facility] CLIA [id number] [address] [place] [address] [place] Protein [Mass/Vol] 7.2 g/dL Normal 6.3-8.0 [facility] Comment on above: Order Comment: Speci men Type: URINE SPECIMEN Ordering Facility: [facility] Address: [address] [place] [address] Performed By: #### 2 4356-8 #### [facility] CLIA [id number] [address] [place], [place] [address] [place] Sodium [Moles/Vol] 140 mmol/L Normal 136-144 [facility] Comment on above: Order Comment: Speci men Type: URINE SPECIMEN Ordering Facility: [facility] Address: [address] [place], [place] [address] Performed By: #### 2 4356-8 #### [facility] CLIA [id number] [address] [place] [address] [place] Urea nitrogen [Mass/Vol] 11 mg/dL Normal 9-24 [facility] Comment on above: Order Comment: Speci men Type: URINE SPECIMEN Ordering Facility: [facility] Address: [address] [place], [place] [address] Performed By: #### 2 4356-8 #### [facility] CLIA [id number] [address] [place] [address] OF [facility] HbA1c (Bld)on 01-27-2025 Average glucose Estimated from glycated hemoglobin (Bld) [Mass/Vol] 103 mg/dL Normal [facility] Comment on above: Order Comment: Speci men Type: URINE SPECIMEN Ordering Facility: [facility] Address: [address] [place] [address] Result Comment: eAG: (Estimated average glucose) is a calculated value from HgbA1c and is regional sales representative of the average blood glucose level in the last 2-3 month period. Performed By: #### 2 4356-8 #### [facility] CLIA [id number] [address] [place] [address] HbA1c (Bld) [Mass fraction] 5.2 % Normal 4.3-5.6 [facility] Comment on above: Order Comment: Speci men Type: URINE SPECIMEN Ordering Facility: [facility] Address: [address] [place] [address] Result Comment: [place] Diabetes Association guidelines indicate that patients with HgbA1c in the range 5.7-6.4% are at increased risk for development of diabetes, and intervention by lifestyle modification may be beneficial. HgbA1c greater or equal to 6.5% is considered diagnostic of diabetes. Performed By: #### 2 4356-8 #### [facility] CLIA [id number] [address] [place] [address] OF [place] LIPID PANEL, NONFASTINGon Cholesterol [Mass/Vol] 243 mg/dL High <200 [facility] Comment on above: Order Comment: Speci men Type: URINE SPECIMEN Ordering Facility: [facility] Address: [address] [place] [address] Result Comment: <200 mg/dL, Desirable 200-239 mg/dL, Borderline high >239 mg/dL, High Performed By: #### 2 4356-8 #### [facility] CLIA [id number] [address] [place] [address] HDL CHOLESTEROL, NF 39 mg/dL Low >39 [facility] Comment on above: Order Comment: Speci men Type: URINE SPECIMEN Ordering Facility: [facility] Address: [address] [place] [address] Result Comment: 40-5 9 mg/dL, Acceptable >59 mg/dL, High: Negative risk factor for coronary heart disease <40 mg/dL, Low: Positive risk factor for coronary heart disease Performed By: #### 2 4356-8 #### [facility] CLIA [id number] [address] [place] [address] OF [facility] LDL CHOLESTEROL CALCULATED, NF 179 mg/dL High <100 [facility] Comment on above: Order Comment: Elyi men Type: URINE SPECIMEN Ordering Facility: [facility] Address: [address] [place] [address] Result Comment: <100 mg/dL, Optimal 100-129 mg/dL, Near optimal/above optimal 130-159 mg/dL, Borderline high 160-189 mg/dL, High >189 mg/dL, Very high Secondary prevention optimal LDL Cholesterol levels are recommended to be <70 mg/dL LDL cholesterol is calculated using the Sheikh-NIH equation. Performed By: #### 2 4356-8 #### [facility] CLIA [id number] [address] [place] [address] LDL/HDL RATIO, NF 4.59 mg/dL High <2.54 [facility] Comment on above: Order Comment: Speci men Type: URINE SPECIMEN Ordering Facility: [facility] Address: [address] [place] [address] Result Comment: [place]: 1. National Cholesterol Education Program ATP III Guideline At-A-Glance Quick Desk Reference: National Heart, Lung, and Blood [place]. National Institutes of Health. 2001: NIH Publication No. 01-3305. 2. An International Atherosclerosis Society position paper: global recommendations for the management of dyslipidemia: executive summary, Atherosclerosis. 2014: 232(2):410-413. Performed By: #### 2 4356-8 #### [facility] CLIA [id number] [address] [place] [address] [place] NON HDL CHOL, NF 204 mg/dL High <130 [facility] Comment on above: Order Comment: Speci men Type: URINE SPECIMEN Ordering Facility: [facility] Address: [address] [place] [address] Result Comment: <130 mg/dL, Optimal 130-159 mg/dL, Near optimal/above optimal 160-189 mg/dL, Borderline high 190-219 mg/dL, High >219 mg/dL, Very high Secondary prevention optimal non HDL Cholesterol levels are recommended to be <100 mg/dL Performed By: #### 2 4356-8 #### [facility] CLIA [id number] [address] [place] [address] [place] T CHOL/HDL RATIO NF 6.23 mg/dL High <5.10 [facility] Comment on above: Order Comment: Speci men Type: URINE SPECIMEN Ordering Facility: [facility] Address: [address] [place] [address] Performed By: #### 2 4356-8 #### [facility] CLIA [id number] [address] [place] [address] [place] TRIGLYCERIDES, NF 136 mg/dL Normal <150 [facility] Comment on above: Order Comment: Speci men Type: URINE SPECIMEN Ordering Facility: [facility] Address: [address] [place] [address] Result Comment: <150 mg/dL, Normal 150-199 mg/dL, Borderline high 200-499 mg/dL, High >499 mg/dL, Very high Performed By: #### 2 4356-8 #### [facility] CLIA [id number] [address] [place] [address] [place] VLDL CHOLESTEROL, NF 27 mg/dL Normal <30 [facility] Comment on above: Order Comment: Speci men Type: URINE SPECIMEN Ordering Facility: [facility] Address: [address] [place] [address] Performed By: #### 2 4356-8 #### [facility] CLIA [id number] [address] [place] [address] [place] TSH SerPl-aCncon 01-27-2025 TSH Qn 1.940 m[IU]/L Normal 0.270-4.200 [facility] Comment on above: Order Comment: Speci men Type: URINE SPECIMEN Ordering Facility: [facility] Address: [address] [place] [address] Performed By: #### 2 4356-8 #### [facility] CLIA [id number] [address] [place] [address] [place] Urinalysis complete panel (U )on 01-27-2025 Bacteria LM.HPF (Urine sed) [#/Area] Negative Normal Negative [facility] Comment on above: Order Comment: Speci men Type: URINE SPECIMEN Ordering Facility: [facility] Address: [address] [place] [address] Performed By: #### 2 4356-8 #### [facility] CLIA [id number] [address] [place] [address] [place] Bilirubin Ql (U) Negative Normal Negative [facility] Comment on above: Order Comment: Speci men Type: URINE SPECIMEN Ordering Facility: [facility] Address: [address] [place] [address] Performed By: #### 2 4356-8 #### [facility] CLIA [id number] [address] [place] [address] [place] Clarity (Unsp spec) Clear Normal Clear [facility] Comment on above: Order Comment: Speci men Type: URINE SPECIMEN Ordering Facility: [facility] Address: [address] [place] [address] Performed By: #### 2 4356-8 #### [facility] CLIA [id number] [address] [place] [address] [place] Color (U) Yellow Normal Yellow [facility] Comment on above: Order Comment: Speci men Type: URINE SPECIMEN Ordering Facility: [facility] Address: [address] [place] [address] Performed By: #### 2 4356-8 #### [facility] CLIA [id number] [address] [place] [address] [place] Epithelial cells LM.HPF (Urine sed) [#/Area] None Seen Normal [facility] Comment on above: Order Comment: Speci men Type: URINE SPECIMEN Ordering Facility: [facility] Address: [address] [place] [address] Performed By: #### 2 4356-8 #### [facility] CLIA [id number] [address] [place] [address] [place] Glucose Test strip (U) [Mass/Vol] Negative Normal Negative [facility] Comment on above: Order Comment: Speci men Type: URINE SPECIMEN Ordering Facility: [facility] Address: [address] [place] [address] Performed By: #### 2 4356-8 #### [facility] CLIA [id number] [address] [place] [address] [place] Hemoglobin Ql (U) Negative Normal Negative [facility] Comment on above: Order Comment: Speci men Type: URINE SPECIMEN Ordering Facility: [facility] Address: [address] [place] [address] Performed By: #### 2 4356-8 #### [facility] CLIA [id number] [address] [place] [address] [place] Hyaline casts (Urine sed) [#/Area] 0 /[LPF] Normal 0 /LPF [facility] Comment on above: Order Comment: Speci men Type: URINE SPECIMEN Ordering Facility: [facility] Address: [address] [place] [address] Performed By: #### 2 4356-8 #### [facility] CLIA [id number] [address] [place] [address] [place] Ketones Ql (U) Negative Normal Negative [facility] Comment on above: Order Comment: Speci men Type: URINE SPECIMEN Ordering Facility: [facility] Address: [address] [place] [address] Performed By: #### 2 4356-8 #### [facility] CLIA [id number] [address] [place] [address] [place] Leukocyte esterase Test strip Ql (U) Negative Normal Negative [facility] Comment on above: Order Comment: Speci men Type: URINE SPECIMEN Ordering Facility: [facility] Address: [address] [place] [address] Performed By: #### 2 4356-8 #### [facility] CLIA [id number] [address] [place] [address] [place] Nitrite Ql (U) Negative Normal Negative [facility] Comment on above: Order Comment: Speci men Type: URINE SPECIMEN Ordering Facility: [facility] Address: [address] [place] [address] Performed By: #### 2 4356-8 #### [facility] CLIA [id number] [address] [place] [address] [place] pH (U) 7.5 [pH] Normal <8.5 [facility] Comment on above: Order Comment: Speci men Type: URINE SPECIMEN Ordering Facility: [facility] Address: [address] [place], [place] [address] Performed By: #### 2 4356-8 #### [facility] CLIA [id number] [address] [place] [address] [place] Protein (U) [Mass/Vol] Negative Normal Negative [facility] Comment on above: Order Comment: Speci men Type: URINE SPECIMEN Ordering Facility: [facility] Address: [address] [place] [address] Performed By: #### 2 4356-8 #### [facility] CLIA [id number] [address] [place] [address] [place] RBC LM.HPF (Urine sed) [#/Area] 0-2 /HPF Normal 0-2 /HPF [facility] Comment on above: Order Comment: Speci men Type: URINE SPECIMEN Ordering Facility: [facility] Address: [address] [place] [address] Performed By: #### 2 4356-8 #### [facility] CLIA [id number] [address] [place] [id number] [place] Specific gravity (U) [Rel density] 1.016 Normal 1.005-1.030 [facility] Comment on above: Order Comment: Speci men Type: URINE SPECIMEN Ordering Facility: [facility] Address: [address] [place] [address] Performed By: #### 2 4356-8 #### [facility] CLIA [id number] [address] [place] [address] [place] Urobilinogen Ql (U) 0.2 EU/dL Normal 0.2-1.0 EU/dL [facility] Comment on above: Order Comment: Speci men Type: URINE SPECIMEN Ordering Facility: [facility] Address: [address] [place] [address] Performed By: #### 2 4356-8 #### [facility] CLIA [id number] [address] [place] [address] [place] WBC LM.HPF (Urine sed) [#/Area] 0-5 /HPF Normal 0-5 /HPF [facility] Comment on above: Order Comment: Speci men Type: URINE SPECIMEN Ordering Facility: [facility] Address: [address] [place] [address] Performed By: #### 2 4356-8 #### [facility] CLIA [id number] [facility] [address] STATES OF [facility] Gretchen 06-16-2024 CNPN Telephone (FAMPWS) DYLAN BARRON ([id number]) 1985 M Date Time Provider Department 06/16/24 [facility] [employer] During your visit today, we recorded the following information about you: Cha Munoz RN 06/16/2024 2:59 PM Signed 139shop calling to state patient's CPAP device has been approved through [employer]. Valid 06/15/2024 through 09/12/2024. They will notify patient as well. Cha Munoz RN Allergies As of Date: 06/16/2024 Noted Allergy Reaction DOXYCYCLINE 07/07/2022 8 - GI Upset Comments: Stomach pain Date Reviewed: 04/15/2024 Reviewed by: Adeline Pillai, MACHINE I TRIMMER.ASSOCIATE PUBLISHER - Fully Assessed Reason for Visit: Prior Authorization-Approva l [Other] Prescriptions as of 06/16/2024 - CPAP/BIPAP/OTHER Type .CPAPSettings into a note to see current settings/supplies/DME information. - melatonin 10 mg tab Take by mouth at bedtime as needed for insomnia. - CPAP Initiate Auto PAP @ 5-20 cm of water with humidification. Mask (per patient preference) optional chin strap (if indicated) , filters, tubing, humidifier and lifetime supplies. - MULTIVITAMIN ORAL Take by mouth. Take one tablet daily - ascorbic acid, vitamin C, (VITAMIN C) 500 mg tablet Take 500 mg by mouth once daily. Take 2 tablets daily - sertraline (ZOLOFT) 50 mg tablet 1/2 a tablet by mouth once a day for 14 days then go to one tablet daily Problem List As Of Date 06/16/2024 Noted Resolved Dizziness [R42] 12/09/2018 Family history of early CAD [Z82.49] 12/09/2018 Well adult exam [Z00.00] 12/09/2018 Chronic nonintractable headache [R51.9, G89.29] 12/09/2018 Encounter for screening for diabetes mellitus [*12/09/2018 Stress reaction [F43.0] 02/09/2024 CE (obstructive sleep apnea) [G47.33] 03/01/2024 Mixed hyperlipidemia [E78.2] 03/08/2024 CE on CPAP [G47.33] 03/08/2024 Elevated blood pressure reading in office with * History of stress test [Z92.89] 05/31/2024 H/O echocardiogram [Z92.89] 05/31/2024 Encounter Status:Closed by CHA MUNOZ on 06/16/24 [facility] DYLAN BARRON ([id number]) 1985 Date Time Provider Department 06/01/24 ADELINE PILLAI [facility] During your visit today, we recorded the following information about you: Adeline Pillai APRN.ENMANUEL 06/01/2024 8:21 AM Addendum Let the patient know, stress test looks good, EF 59% with no ischemia or infarction. echocardiogram looks okay as well, EF 50? 5%, no significant valvular abnormalities. Miguel Ramirez MA 06/01/2024 9:55 AM Signed Pt called and notified per adeline stress test looks good, EF 59% with no ischemia or infarction. echocardiogram looks okay as well, EF 50? 5%, no significant valvular abnormalities. Pt agreeable Pt states when he seen you he thinks you recommended follow up every 3 years and he wants to make sure that is correct? Adeline Pillai APRN.ASSOCIATE PUBLISHER 06/01/2024 10:14 AM Signed Make sure it is a little bit sooner than 3 years so he is not a new patient at the time. Miguel Ramirez MA 06/01/2024 11:06 AM Signed Pt called and notified per adeline Make sure it is a little bit sooner than 3 years so he is not a new patient at the time. Pt agreeable Allergies As of Date: 06/01/2024 Noted Allergy Reaction DOXYCYCLINE 07/07/2022 8 - GI Upset Comments: Stomach pain Date Reviewed: 04/15/2024 Reviewed by: Adeline Pillai, MACHINE I TRIMMER.ASSOCIATE PUBLISHER - Fully Assessed Reason for Visit: Results [95] Primary Visit Diagnosis:History of stress test [Z92.89] Other Visit Diagnosis:H/O echocardiogram [Z92.89] Prescriptions as of 06/01/2024 - CPAP/BIPAP/OTHER Type .CPAPSettings into a note to see current settings/supplies/DME information. - melatonin 10 mg tab Take by mouth at bedtime as needed for insomnia. - CPAP Initiate Auto PAP @ 5-20 cm of water with humidification. Mask (per patient preference) optional chin strap (if indicated) , filters, tubing, humidifier and lifetime supplies. - MULTIVITAMIN ORAL Take by mouth. Take one tablet daily - ascorbic acid, vitamin C, (VITAMIN C) 500 mg tablet Take 500 mg by mouth once daily. Take 2 tablets daily - sertraline (ZOLOFT) 50 mg tablet 1/2 a tablet by mouth once a day for 14 days then go to one tablet daily Problem List As Of Date 06/01/2024 Noted Resolved Dizziness [R42] 12/09/2018 Family history of early CAD [Z82.49] 12/09/2018 Well adult exam [Z00.00] 12/09/2018 Chronic nonintractable headache [R51.9, G89.29] 12/09/2018 Encounter for screening for diabetes mellitus [*12/09/2018 Encounter for lipid screening for cardiovascula* 024 Stress reaction [F43.0] 02/09/2024 CE (obstructive sleep apnea) [G47.33] 03/01/2024 Mixed hyperlipidemia [E78.2] 03/08/2024 CE on CPAP [G47.33] 03/08/2024 Elevated blood pressure reading in office with * History of stress test [Z92.89] 05/31/2024 H/O echocardiogram [Z92.89] 05/31/2024 Encounter Status:Closed by MIGUEL RAMIREZ on 06/01/[address] [facility] ECHOon 05-31-2024 Echocardiography Echocardiography Report: Transthoracic Echo [facility] Date of service: 05/31/2024 9:51:32 AM Ordering physician: ADELINE PILLAI Indication: Shortness of Breath Technologist: Earlene Bustos [facility] Interpreting physician: Deepak Pearce MD PATIENT: Name: MR. DYLAN BARRON : 1985 Age: 38 years Gender: M History of coronary artery disease. Primary rhythm: sinus. Height: 177.80 cm BSA: 1.92 m Weight: 74.84 kg BMI: 23.7 kg/m Heart rate 74 bpm Blood pressure 132/75 mmHg Technically difficult exam due to body habitus and Difficult Apical. Color Doppler was utilized to interrogate the cardiac valves assessed and spectral Doppler was utilized to determine the flow velocities and pressure gradients reported in this exam. Myocardial strain analysis was performed in this exam to aid in the assessment of cardiac function. MEASUREMENTS: Value Indexed Normal Max aortic dimension 2.7 cm Ao < 3.8 LV ID (diastole) 4.5 cm (2D) 2.34 cm/m LV ID (systole) 2.8 cm (2D) 1.46 cm/m IVS, leaflet tips 0.8 cm (2D) Posterior wall thickness 0.8 cm (2D) Left ventricular mass 114 g (2D) 59 g/m Global peak long strain -17.2 % LVOT stroke volume 56 ml 29 ml/m Ejection Fraction 50 % (visual est.) EF > 52 FINDINGS: LEFT VENTRICLE The left ventricle is normal in size. There is no left ventricular hypertrophy. Left ventricular systolic function is mildly decreased. Global LV myocardial strain is normal. Normal left ventricular diastolic function. Mitral annular lateral E/e': 6.4. Mitral annular septal E/e': 7.2. Wall Motion: The inferior septum is mildly hypokinetic. All remaining scored segments are normal. RIGHT VENTRICLE The right ventricle is normal in size. Right ventricular systolic function is normal. Estimated right ventricular systolic pressure is not reported due to an insufficient tricuspid regurgitation signal. Estimated right atrial pressure is 3 mmHg based on IVC assessment. LEFT ATRIUM The left atrial cavity is normal in size. RIGHT ATRIUM The right atrial cavity is normal in size. Inferior Vena Cava: The inferior vena cava appears normal measuring 1.4 cm. The vessel decreases greater than 50 percent with inspiration. MITRAL VALVE There is no mitral stenosis. There is trace mitral valve regurgitation. The peak mitral valve gradient is 3 mmHg. The mean mitral valve gradient is 1 mmHg. The pressure half time is 56 msec. The peak mitral E/A ratio is 1.40. The mitral flow deceleration time is 193 msec. TRICUSPID VALVE There is no tricuspid stenosis. There is trace tricuspid valve regurgitation. AORTIC VALVE There is no aortic valve stenosis. There is no aortic valve regurgitation. Tricuspid aortic valve. The peak gradient is 4 mmHg (peak velocity = 103.5 cm/s). The mean gradient is 2 mmHg. The LVOT mean velocity is 53.5 cm/s. The LVOT diameter is 2.1 cm. The aortic VTI is 19.6 cm. The mean velocity in the aortic valve is 69.3 cm/s. The dimensionless valve index is 0.82. AV area is 2.85 cm (1.48 cm /m ) by continuity, VTI. The LVOT stroke volume index is 29 ml/m . PULMONIC VALVE There is no pulmonic stenosis. There is trace pulmonic valve regurgitation. The peak gradient is 4 mmHg. AORTA The visualized aorta is normal in size. Measurements - Sinus: 2.7 cm. Sinotubular junction 2.2 cm. PULMONARY ARTERIES The pulmonary arteries are normal. PERICARDIUM The pericardium is normal. CONCLUSIONS: - Technically difficult exam due to body habitus and Difficult Apical. - Exam indication: Shortness of Breath - The left ventricle is normal in size. There is no left ventricular hypertrophy. Left ventricular systolic function is mildly decreased. EF = 50 5% (visual est.) Normal left ventricular diastolic function. - The right ventricle is normal in size. Right ventricular systolic function is normal. - No significant valvular abnormalities. - The patient has not had a prior CC echocardiographic exam for comparison. * * * Final * * * [facility] [employer] Medical Image : [id number] amicsSISUID Normal [facility] NM CARDIAC PERF STRESS/EXERC [facility] 05-31-2024 NM CARDIAC PERF STRESS/EXERCISE * * *Final Report* * * DATE OF EXAM: May 31 2024 11:22AM RHN 0004 - NM CARDIAC PERF STRESS/EXERCISE / PROCEDURE REASON: multiple diagnoses * * * * Physician Interpretation * * * * [facility] Account Director Report: [facility] Date of service: 05/31/2024 8:12:10 AM Supervising physician: Deepak Pearce MD PATIENT: Name: MR. DYLAN BARRON Age: 38 years Gender: M The supervising physician was in the department and immediately available. * * * Final * * * -------- PATIENT: Name: MR. DYLAN BARRON Age: 38 years Gender: M CONCLUSIONS: 1. SPECT Perfusion Study: Normal. 2. There is no scintigraphic evidence for inducible ischemia. 3. No evidence of scarred myocardium. 4. Left ventricle is normal in size. The left ventricle systolic function is normal. 5. Right ventricle is normal in size. The right ventricle systolic function is normal. 6. No transient ischemic dilation. Gated Stress FBP LVEF % 59 Prior Study Comparison No prior nuclear cardiology exam available for comparison. Nuclear Med Report:1-Day Gated SPECT Myocardial Perfusion with Exercise Stress: Myocardial perfusion imaging was performed at rest 30 to 60 minutes following the IV injection of the radiotracer. One minute prior to peak exercise, the patient was injected IV with the radiotracer. Gated post stress tomographic imaging was performed 10 to 20 minutes later. See administered radiotracer and doses below. [facility] Date of service: 05/31/2024 8:12:10 AM Ordering Physician: ADELINE PILLAI. Requesting Physician: Indication: CP - ECG interpretable AND able to exercise with interm/high pre-test probability and Syncope/Presycope Interpreting physician: Deepak Pearce MD Height: 177.80 cm BSA: 1.92 m? Weight: 74.84 kg BMI: 23.7 kg/m? Exam Type: Rest Stress Radiopharm: Tc-99m Tetrofosmin Tc-99m Tetrofosmin Dosage(mCi): 10.7 30.7 Atten Correction: not performed not performed Stress Agent: Treadmill Resting Blood Press: 131/77 mmHg Image Quality The overall study imaging quality was deemed to be good. FINDINGS: Left Ventricle Wall Motion: Stress FBP - All segments are normal. Rest FBP - Gated Stress FBP - Reversibility - Stress FBP Stress FBP Gated Stress FBP LVEF: 59 % ED Volume: 114 ml ES Volume: 47 ml TID: 1.09 Perfusion Findings Stress FBP - Summed Score=1 There is a mild perfusion defect in the mid anteroseptal segment. All remaining scored segments show normal perfusion. Rest FBP - Summed Score=3 There is a mild perfusion defect in the mid anteroseptal segment, mid anterior segment, and mid inferior segment. All remaining scored segments show normal perfusion. Stress FBP Rest FBP Summed Score=1 Summed Score=3 LEFT VENTRICLE The left ventricle is normal in size. Left ventricular systolic function is normal. Right Ventricle The right ventricle is normal in size. Right ventricle systolic function is normal. Stress Test Findings: There is no scintigraphic evidence for inducible ischemia. There is no evidence of scarring. * * * Final * * * -------- Stress ECG Report: [facility] Date of service: 05/31/2024 8:12:10 AM Ordering physician: ADELINE PILLAI erp specialist: Lynne Kim RN Interpreting physician: Deepak Pearce MD Patient name: MR. DYLAN BARRON Age: 38 years Gender: M Height: 177.80 cm BSA: 1.92 m? Weight: 74.84 kg BMI: 23.7 kg/m? Indication: Chest pressure / Chest tightness Stress ECG Conclusion: Conclusion: Normal Stress ECG Summary: The patient's resting heart rate was 60 bpm and blood pressure was 131/77 mmHg. The patient exercised according to the Reuben protocol. The estimated end-exercise MET level achieved using the FRIEND equation * * * was 10.5, which is within the 25th to 50th percentile for age and sex. The estimated end-exercise MET level achieved using the previous ACSM equation was 12.1. The test was terminated due to leg fatigue and the total exercise time was 12 minutes and 0 seconds. Other symptoms during the test included SOB. The maximum heart rate was 187 bpm, which is 103% of the predicted heart rate for age. This is an adequate heart rate response. Peak blood pressure was 158/80 mmHg. The double product achieved was [address]. Medications: Last Used VIT C SERTRALINE MVI Resting ECG: Normal Sinus Rhythm Symptoms at rest: No symptoms Exercise Protocol: Reuben Stress Exercise Table: +-----+ +-- ------+ +--- +---+---+----+ Stage Speed (MPH) Grade(%) Time (min) HR SYS NYASIA METS +- (more content not included)... Normal [facility] NM Heart Perfusion W multipl e states of exerciseon 05-31-2024 * * *Final Report* * * DATE OF EXAM: May 31 2024 11:22AM [facility] 0004 - NM CARDIAC PERF STRESS/EXERCISE / PROCEDURE REASON: multiple diagnoses * * * * Physician Interpretation * * * * [facility] Account Director Report: [facility] Date of service: 05/31/2024 8:12:10 AM Supervising physician: Deepak Pearce MD PATIENT: Name: MR. DYLAN BARRON Age: 38 years Gender: M The supervising physician was in the department and immediately available. * * * Final * * * -------- PATIENT: Name: MR. DYLAN BARRON Age: 38 years Gender: M CONCLUSIONS: 1. SPECT Perfusion Study: Normal. 2. There is no scintigraphic evidence for inducible ischemia. 3. No evidence of scarred myocardium. 4. Left ventricle is normal in size. The left ventricle systolic function is normal. 5. Right ventricle is normal in size. The right ventricle systolic function is normal. 6. No transient ischemic dilation. Gated Stress FBP LVEF % 59 Prior Study Comparison No prior nuclear cardiology exam available for comparison. Nuclear Med Report:1-Day Gated SPECT Myocardial Perfusion with Exercise Stress: Myocardial perfusion imaging was performed at rest 30 to 60 minutes following the IV injection of the radiotracer. One minute prior to peak exercise, the patient was injected IV with the radiotracer. Gated post stress tomographic imaging was performed 10 to 20 minutes later. See administered radiotracer and doses below. [facility] Date of service: 05/31/2024 8:12:10 AM Ordering Physician: ADELINE PILLAI. Requesting Physician: Indication: CP - ECG interpretable AND able to exercise with interm/high pre-test probability and Syncope/Presycope Interpreting physician: Deepak Pearce MD Height: 177.80 cm BSA: 1.92 m Weight: 74.84 kg BMI: 23.7 kg/m Exam Type: Rest Stress Radiopharm: Tc-99m Tetrofosmin Tc-99m Tetrofosmin Dosage(mCi): 10.7 30.7 Atten Correction: not performed not performed Stress Agent: Treadmill Resting Blood Press: 131/77 mmHg Image Quality The overall study imaging quality was deemed to be good. FINDINGS: Left Ventricle Wall Motion: Stress FBP - All segments are normal. Rest FBP - Gated Stress FBP - Reversibility - Stress FBP Stress FBP Gated Stress FBP LVEF: 59 % ED Volume: 114 ml ES Volume: 47 ml TID: 1.09 Perfusion Findings Stress FBP - Summed Score=1 There is a mild perfusion defect in the mid anteroseptal segment. All remaining scored segments show normal perfusion. Rest FBP - Summed Score=3 There is a mild perfusion defect in the mid anteroseptal segment, mid anterior segment, and mid inferior segment. All remaining scored segments show normal perfusion. Stress FBP Rest FBP Summed Score=1 Summed Score=3 LEFT VENTRICLE The left ventricle is normal in size. Left ventricular systolic function is normal. Right Ventricle The right ventricle is normal in size. Right ventricle systolic function is normal. Stress Test Findings: There is no scintigraphic evidence for inducible ischemia. There is no evidence of scarring. * * * Final * * * -------- Stress ECG Report: [facility] Date of service: 05/31/2024 8:12:10 AM Ordering physician: ADELINE PILLAI erp specialist: Lynne Kim RN Interpreting physician: Deepak Pearce MD Patient name: MR. DYLAN BARRON Age: 38 years Gender: M Height: 177.80 cm BSA: 1.92 m Weight: 74.84 kg BMI: 23.7 kg/m Indication: Chest pressure / Chest tightness Stress ECG Conclusion: Conclusion: Normal Stress ECG Summary: The patient's resting heart rate was 60 bpm and blood pressure was 131/77 mmHg. The patient exercised according to the Reuben protocol. The estimated end-exercise MET level achieved using the FRIEND equation * * * was 10.5, which is within the 25th to 50th percentile for age and sex. The estimated end-exercise MET level achieved using the previous ACSM equation was 12.1. The test was terminated due to leg fatigue and the total exercise time was 12 minutes and 0 seconds. Other symptoms during the test included SOB. The maximum heart rate was 187 bpm, which is 103% of the predicted heart rate for age. This is an adequate heart rate response. Peak blood pressure was 158/80 mmHg. The double product achieved was [id number] (more content not included)... [facility] RADIOLOG[facility] Provider, Osiris Hall - 05/31/2024 * * *Final Report* * * DATE OF EXAM: May 31 2024 11:22AM [facility] 0004 - NM CARDIAC PERF STRESS/EXERCISE / PROCEDURE REASON: multiple diagnoses * * * * Physician Interpretation * * * * [facility] Account Director Report: [facility] Date of service: 05/31/2024 8:12:10 AM Supervising physician: Deepak Pearce MD PATIENT: Name: MR. DYLAN BARRON Age: 38 years Gender: M The supervising physician was in the department and immediately available. * * * Final * * * -------- PATIENT: Name: MR. DYLAN BARRON Age: 38 years Gender: M CONCLUSIONS: 1. SPECT Perfusion Study: Normal. 2. There is no scintigraphic evidence for inducible ischemia. 3. No evidence of scarred myocardium. 4. Left ventricle is normal in size. The left ventricle systolic function is normal. 5. Right ventricle is normal in size. The right ventricle systolic function is normal. 6. No transient ischemic dilation. Gated Stress FBP LVEF % 59 Prior Study Comparison No prior nuclear cardiology exam available for comparison. Nuclear Med Report:1-Day Gated SPECT Myocardial Perfusion with Exercise Stress: Myocardial perfusion imaging was performed at rest 30 to 60 minutes following the IV injection of the radiotracer. One minute prior to peak exercise, the patient was injected IV with the radiotracer. Gated post stress tomographic imaging was performed 10 to 20 minutes later. See administered radiotracer and doses below. [facility] Date of service: 05/31/2024 8:12:10 AM Ordering Physician: ADELINE PILLAI. Requesting Physician: Indication: CP - ECG interpretable AND able to exercise with interm/high pre-test probability and Syncope/Presycope Interpreting physician: Deepak Pearce MD Height: 177.80 cm BSA: 1.92 m Weight: 74.84 kg BMI: 23.7 kg/m Exam Type: Rest Stress Radiopharm: Tc-99m Tetrofosmin Tc-99m Tetrofosmin Dosage(mCi): 10.7 30.7 Atten Correction: not performed not performed Stress Agent: Treadmill Resting Blood Press: 131/77 mmHg Image Quality The overall study imaging quality was deemed to be good. FINDINGS: Left Ventricle Wall Motion: Stress FBP - All segments are normal. Rest FBP - Gated Stress FBP - Reversibility - Stress FBP Stress FBP Gated Stress FBP LVEF: 59 % ED Volume: 114 ml ES Volume: 47 ml TID: 1.09 Perfusion Findings Stress FBP - Summed Score=1 There is a mild perfusion defect in the mid anteroseptal segment. All remaining scored segments show normal perfusion. Rest FBP - Summed Score=3 There is a mild perfusion defect in the mid anteroseptal segment, mid anterior segment, and mid inferior segment. All remaining scored segments show normal perfusion. Stress FBP Rest FBP Summed Score=1 Summed Score=3 LEFT VENTRICLE The left ventricle is normal in size. Left ventricular systolic function is normal. Right Ventricle The right ventricle is normal in size. Right ventricle systolic function is normal. Stress Test Findings: There is no scintigraphic evidence for inducible ischemia. There is no evidence of scarring. * * * Final * * * -------- Stress ECG Report: [facility] Date of service: 05/31/2024 8:12:10 AM Ordering physician: ADELINE PILLAI erp specialist: Lynne Kim RN Interpreting physician: Deepak Pearce MD Patient name: MR. DYLAN BARRON Age: 38 years Gender: M Height: 177.80 cm BSA: 1.92 m Weight: 74.84 kg BMI: 23.7 kg/m Indication: Chest pressure / Chest tightness Stress ECG Conclusion: Conclusion: Normal Stress ECG Summary: The patient's resting heart rate was 60 bpm and blood pressure was 131/77 mmHg. The patient exercised according to the Reuben protocol. The estimated end-exercise MET level achieved using the FRIEND equation * * * was 10.5, which is within the 25th to 50th percentile for age and sex. The estimated end-exercise MET level achieved using the previous ACSM equation was 12.1. The test was terminated due to leg fatigue and the total exercise time was 12 minutes and 0 seconds. Other symptoms during the test included SOB. The maximum heart rate was 187 bpm, which is 103% of the predicted heart rate for age. This is an adequate heart rate response. Peak blood pressure was 158/80 mmHg. The double product achieved was [address]. Medications: Last Used VIT C SERTRALINE MVI Resting ECG: Normal Sinus Rhythm Symptoms at rest: No symptoms Exercise Pr (more content not included)... [facility] Radiology Study observation (narrative) [facility] NM Heart Perfusion W multipl e states of exerciseOrdered By: [facility] Provider on 05-31-2024 [facility] CNOVon 04-15-2024 CNOV Office Visit ([facility] ) DYLAN BARRON ([id number]) 1985 M Date Time Provider Department 04/15/24 9:00 AM ADELINE PILLAI [facility] During your visit today, we recorded the following information about you: Pulse Blood pressure Weight Height 64/minute 140/82 74.8 kg 1.778 m Adeline Pillai, MACHINE I TRIMMER.ASSOCIATE PUBLISHER 04/15/2024 9:42 AM Signed [facility] CARDIOLOGY Carlton Katz MD SUBJECTIVE: Dylan Barron is a 38 year old male who is here today for a new patient visit. The patient tells me that we have seen him in the past but has been about 5 years. In 2019, his 36-year-old brother of acute DE. The corner confirmed he had coronary artery disease. The patient's maternal grandmother at 55 of what is believed to be a cardiac issue. He also had a cousins on his mother's side who at 41 years of age who is believed to have from a heart problem. He complains of chest pain and shortness of breath with exertion. He does not have chest pain or shortness of breath at rest. The chest discomfort is in the left chest. It does not radiate. He does not have associated diaphoresis. He has not had any episodes of syncope or near syncope but he is dizzy at times. He has not had any problems with palpitations, PND, orthopnea, or edema. PAST MEDICAL HISTORY 12/09/2018: Chronic nonintractable headache Comment: may be migraines. 12/09/2018: Dizziness Comment: Seeing Neurology, Dr. Obrien in [facility] No date: Elevated blood pressure reading in office with diagnosis of hypertension 12/09/2018: Family history of early CAD Comment: Brother at 36 No date: Mixed hyperlipidemia No date: CE on CPAP PAST SURGICAL HISTORY No date: NONE FAMILY HISTORY Problem Relation Age of Onset Hyperlipidemia Mother Diabetes Father type 2 Heart Attack Brother 36 09/2018 Heart Maternal Grandmother No Known Problems Maternal Grandfather Diabetes Paternal Grandfather Prostate Cancer Maternal Uncle ? Heart Maternal cousin Alzheimer's Disease No Family History Colon Cancer No Family History Breast Cancer No Family History Ovarian cancer No Family History Uterine Cancer No Family History Hypertension No Family History Kidney Disease No Family History Seizures No Family History Stroke No Family History Thyroid No Family History SOCIAL HISTORY: Social History Tobacco Use Smoking status: Never Smokeless tobacco: Never Substance Use Topics Alcohol use: Yes Comment: very rare Drug use: Never ALLERGIES: Doxycycline CURRENT MEDICATIONS: Current Outpatient Medications Medication Sig melatonin 10 mg tab Take by mouth at bedtime as needed for insomnia. CPAP Initiate Auto PAP @ 5-20 cm of water with humidification. Mask (per patient preference) optional chin strap (if indicated) , filters, tubing, humidifier and lifetime supplies. MULTIVITAMIN ORAL Take by mouth. Take one tablet daily ascorbic acid, vitamin C, (VITAMIN C) 500 mg tablet Take 500 mg by mouth once daily. Take 2 tablets daily sertraline (ZOLOFT) 50 mg tablet 1/2 a tablet by mouth once a day for 14 days then go to one tablet daily No current facility-administered medications for this visit. Review of Systems Constitutional: Negative for activity change and fever. Respiratory: Positive for shortness of breath. Negative for apnea, cough, chest tightness, wheezing and stridor. Cardiovascular: Positive for chest pain. Negative for palpitations and leg swelling. Gastrointestinal: Negative for abdominal distention, diarrhea and vomiting. Musculoskeletal: Negative for joint swelling, neck pain and neck stiffness. Skin: Negative for color change, pallor and rash. Neurological: Positive for dizziness. Negative for syncope, weakness, light-headedness and numbness. Hematological: Does not bruise/bleed easily. Psychiatric/Behaviora l: Negative for agitation, behavioral problems and confusion. The patient is not nervous/anxious. All other systems reviewed and are negative. PHYSICAL EXAMINATION: 04/15/24 0851 BP: 140/82 BP Position: Sitting Pulse: 64 Weight: 74.8 kg (165 lb) Height: 177.8 cm (5' 10) Last 3 Encounter BP Readings: Date: BP: 02/09/2024 122/80 12/10/2023 148/80 09/10/2023 127/84 Last 3 Encounter Pulse Readings: Date: Pulse: 02/09/2024 80 12/10/2023 114 09/10/2023 82 Last 3 Encounter Wt Readings: Date: Wt: 02/09/2024 72.6 kg (160 lb) 12/10/2023 74.3 kg (163 lb 12.8 oz) 09/10/2023 75.3 kg (166 lb) Potassium (mmol/L) Date Value 12/02/2021 3.9 Sodium (mmol/L) Date Value 12/02/2021 138 Creatinine (mg/dL) Date Value 12/02/2021 0.82 BUN (mg/dL) Date Value 12/02/2021 16 Glucose (mg/dL) Date Value 12/02/2021 84 TSH Date Value 12/02/2021 2.450 mIU/L 12/09/2018 2.710 uU/mL Physical Exam Vitals and nursing note reviewed. Constitutional: General: He is not in (more content not included)... Normal [facility] ECG COMPLETEon 04-15-2024 ECG COMPLETE Ventricular Rate : 6 4 BPM Atrial Rate : 64 BPM P-R Interval : 152 ms QRS Duration : 100 ms Q-T Interval : 368 ms QTC Calculation(Bazett) : 379 ms Calculated P Pierron : 79 degrees Calculated R Pierron : 80 degrees Calculated T Pierron : 58 degrees Normal sinus rhythm Early repolarization Normal ECG No previous ECGs available Confirmed by DEEPAK DOCKERY MD ([id number]) on 04/15/2024 7:44:09 PM NAME : DYLAN BARRON PID : [id number] : 1985 Gender : Male Race : ORD : [id number] Procedure Date : Apr 15 2024 08:46:36 Edit Date : Apr 15 2024 19:44:14 Diagnosis: Normal sinus rhythm Early repolarization Normal ECG No previous ECGs available Confirmed by DEEPAK DOCKERY MD ([id number]) on 04/15/2024 7:44:09 PM Test Reason : Location : 201 : [facility] Overread By : DEEPAK DOCKERY MD Edited By : DEEPAK DOCKERY MD Referred By : CARLTON KATZ Acquired by : wil [facility] Gretchen 03-08-2024 CNPN Telephone (FAMPWS) DYLAN BARRON ([id number]) 1985 M Date Time Provider Department 03/08/24 CARLTON KATZ [facility] During your visit today, we recorded the following information about you: Rita Avila LPN 03/08/2024 1:12 PM Signed Leonor from [facility] calling to report PA for CPAP device has been APPROVED, valid dates 03/07/24 - 06/04/24. Reference # [id number]. JOE Pozo Jeffrey A, MD 03/08/2024 6:51 PM Signed Noted. Allergies As of Date: 03/08/2024 Noted Allergy Reaction DOXYCYCLINE 07/07/2022 8 - GI Upset Comments: Stomach pain Date Reviewed: 02/09/2024 Reviewed by: Carlton Katz MD - Fully Assessed Reason for Visit: PA Approved [Other] Prescriptions as of 03/08/2024 - CPAP Initiate Auto PAP @ 5-20 cm of water with humidification. Mask (per patient preference) optional chin strap (if indicated) , filters, tubing, humidifier and lifetime supplies. - MULTIVITAMIN ORAL Take by mouth. Take one tablet daily - ascorbic acid, vitamin C, (VITAMIN C) 500 mg tablet Take 500 mg by mouth once daily. Take 2 tablets daily - sertraline (ZOLOFT) 50 mg tablet 1/2 a tablet by mouth once a day for 14 days then go to one tablet daily Problem List As Of Date 03/08/2024 Noted Resolved Dizziness [R42] 12/09/2018 Family history of early CAD [Z82.49] 12/09/2018 Well adult exam [Z00.00] 12/09/2018 Chronic nonintractable headache [R51.9, G89.29] 12/09/2018 Encounter for screening for diabetes mellitus [*12/09/2018 Encounter for lipid screening for cardiovascula* 024 Stress reaction [F43.0] 02/09/2024 CE (obstructive sleep apnea) [G47.33] 03/01/2024 Mixed hyperlipidemia [E78.2] 03/08/2024 CE on CPAP [G47.33] 03/08/2024 Encounter Status:Closed by CARLTON KATZ [facility]FAMPWS[facility] DYLAN BARRON ([id number]) 1985 M Date Time Provider Department 03/01/24 KEENAN LUCAS [facility] During your visit today, we recorded the following information about you: Keenan Lucas MD 03/01/2024 1:00 PM Signed His sleep test shows at least mild sleep apnea. Given his daytime fatigue, I would recommend starting an autopap machine and following up with sleep med. Rx printed. Charlene Rod MA 03/02/2024 8:10 AM Signed Contacted patient and let him know of results. Please schedule patient for Sleep Med. RAYMUNDO William Lindsey, MA 03/03/2024 11:34 AM Signed CPAP with settings ordered by Dr. Lucas per sleep study results. Called and spoke with patient to see where to send order. He wasn't sure off hand per his insurance. He lives in [place]. [place] [facility] [place] Order, demo and notes faxed. Patient is scheduled with sleep med in [place] Allergies As of Date: 03/01/2024 Noted Allergy Reaction DOXYCYCLINE 07/07/2022 8 - GI Upset Comments: Stomach pain Date Reviewed: 02/09/2024 Reviewed by: Carlton Katz MD - Fully Assessed Reason for Visit: Results [95] Primary Visit Diagnosis:CE (obstructive sleep apnea) [G47.33] Order(s):CPAPInitiate Auto PAP @ 5-20 cm of water with humidification. Mask (per patient preference) optional chin strap (if indicated) , filters, tubing, humidifier and lifetime supplies.Disp: 1 EachRfl: 0 CONSULT TO SLEEP MEDICINE - ADULT [[id number]] Order #: [id number]: 1 FUTURE Prescriptions as of 03/03/2024 - CPAP Initiate Auto PAP @ 5-20 cm of water with humidification. Mask (per patient preference) optional chin strap (if indicated) , filters, tubing, humidifier and lifetime supplies. - MULTIVITAMIN ORAL Take by mouth. Take one tablet daily - ascorbic acid, vitamin C, (VITAMIN C) 500 mg tablet Take 500 mg by mouth once daily. Take 2 tablets daily - sertraline (ZOLOFT) 50 mg tablet 1/2 a tablet by mouth once a day for 14 days then go to one tablet daily Problem List As Of Date 03/01/2024 Noted Resolved Dizziness [R42] 12/09/2018 Family history of early CAD [Z82.49] 12/09/2018 Well adult exam [Z00.00] 12/09/2018 Chronic nonintractable headache [R51.9, G89.29] 12/09/2018 Encounter for screening for diabetes mellitus [*12/09/2018 Encounter for lipid screening for cardiovascula* 024 Stress reaction [F43.0] 02/09/2024 CE (obstructive sleep apnea) [G47.33] 03/01/2024 Prescriptions ordered this encounter Disp Refills Start End CPAP 1 Ea* 0 03/01/2024 Class: Print RX Sig: Initiate Auto PAP @ 5-20 cm of water with humidification. Mask (per patient preference) optional chin strap (if indicated) , filters, tubing, humidifier and lifetime supplies. Encounter Status:Closed by CASIE UPTON on 03/03/[address] [facility] POLYSOMNOGRAM (PSG)/HOME SLE EP APNEA TEST (HSAT)on 02-24-2024 POLYSOMNOGRAM (PSG)/HOME SLEEP APNEA TEST (HSAT) [facility] at [address], [address], [place] [address] ; Home Sleep Apnea Test (HSAT) Study Report Name: DYLAN BARRON Date of Study: 02/24/2024 [facility]#: [id number] Age: 38 (: 1985) ESS: 05/03 Neck Circ. (cm): 34.0 Height (cm): 178.0 Weight (kg): 73.0 BMI: 23.0 Referring Provider: CARLTON KATZ Mailcode: [id number] Sleep history: The patient is a 38 year old male with a history of daytime sleepiness, fatigue, snoring, witnessed apneas, multiple awakenings from sleep, and mouth breathing. The patient is here for assessment of obstructive sleep apnea. The patient endorses being a habitual supine sleeper. Pertinent medical history: Headaches Medications: Melatonin Sleep procedure: PSG unattended Type III, minimum of 4 parameters ([id number]) Procedure: This study was performed using a Type III ambulatory PSG device and was unattended. The patient was instructed on proper use of the device by a registered certified cytotechnologist. The monitored parameters included heart rate, oxygen saturation, continuous airflow with thermistor and nasal pressure transducer, snoring via nasal pressure transducer, chest and abdominal effort, and body position. PANCHO definition: Respiratory event index (PANCHO), calculated as respiratory events x 60 / TRT (total recording time in minutes). Note: the apnea hypopnea index has been replaced by the respiratory event index for home sleep apnea test. Since the home sleep apnea test does not measure sleep, the PANCHO is most accurate index of respiratory events. The PANCHO is a surrogate of the AHI per the AASM Manual for Scoring of Sleep and Associated Events version 2.6. Apnea definition: The peak signal excursions drop by >90% of pre-event baseline using an oronasal thermal sensor (diagnostic study), PAP device flow (titration study) or an alternative apnea sensor (diagnostic study). The duration of the >90% drop in signal excursion is >=10 seconds. Hypopnea definition: The peak signal excursions drop by >= 30% of pre-event baseline using nasal pressure (diagnostic study), PAP device flow (titration study) or an alternative hypopnea sensor (diagnostic study). The duration of the >= 30% drop in signal excursion is >=10 seconds. There is a greater than or equal to 3% oxygen desaturation from pre-event baseline. RESPIRATORY DATA: The study started at 22:47:50 and ended at 05:03:26 and the total recording time was 376 minutes. By convention, sleep is assumed for the whole recording. Snoring was noted. There was a total of 49 respiratory events. Of these events, the total number of apneas was 29 (27 obstructive, 0 mixed, and 2 central (4.1%)) and 20 hypopneas. The central apnea index (SHYLA) was 0.3. The respiratory event index (PANCHO) was 7.8 events per hour of study time. The mean oxygen saturation during the study was 97.0%, with a minimum oxygen saturation of 88.0%. The patient spent 0.3 minutes at oxygen saturation measured less than 90% (0.1% of recording time) and 0.2 minutes at oxygen saturation measured at or less than 88% (0.1% of recording time). Time PANCHO/AHI Supine 320.0 min 8.8 Off-Supine 56.0 min 2.1 Total 376.0 min 7.8 ECG DATA: The average heart rate was 59 bpm with a range of 50 bpm to 101 bpm. ICSD DIAGNOSIS: Obstructive Sleep Apnea Syndrome [G47.33] IMPRESSION/RECOMMENDA TIONS: 1. This study confirms a diagnosis of at least mild obstructive sleep apnea. 2. The results of this study may represent an underestimation of the degree of obstructive sleep apnea, especially hypopneas, because of the known limitations of HSAT, such as inability to record arousals because EEG is not recorded. 3. Treatment of mild sleep apnea can include weight loss, positional therapy, treatment of allergies, oral appliance therapy or ENT evaluation of any airway abnormalities. PAP therapy may be considered in patients with documented symptoms of daytime sleepiness, impaired cognition, mood disorder, insomnia, or documented hypertension, ischemic heart disease, or history of stroke. INTERPRETING PHYSICIAN: Edward Alex MD I attest that I have performed epoch by epoch review of the entire raw data and have found this study to be technically adequate. Report Digitally Signed By: EDWARD ALEX (02/29/2024 12:52:22 PM) Normal [facility] HbA1c (Bld)on 02-09-2024 Average glucose Estimated from glycated hemoglobin (Bld) [Mass/Vol] 100 mg/dL [facility] Comment on above: eAG: (Estimated aver age glucose) is a calculated value from HgbA1c and is regional sales representative of the average blood glucose level in the last 2-3 month period. HbA1c (Bld) [Mass fraction] 5.1 % 4.3 - 5.6 % [facility] Comment on above: [place] Diabetes As sociation guidelines indicate that patients with HgbA1c in the range 5.7-6.4% are at increased risk for development of diabetes, and intervention by lifestyle modification may be beneficial. HgbA1c greater or equal to 6.5% is considered diagnostic of diabetes. [facility] XR Chest PA and Lateralon Radiology Study observation (narrative) [facility] IMPRESSION: Questionable small patchy opacity in the lower lobe. Consider follow-up. Electronic Field Service Engineer: THERESA Transcribe Date/Time: Dec 10 2023 12:43P Dictated by : INDIGO VILLALOBOS MD This examination was interpreted and the report reviewed and electronically signed by: INDIGO VILLALOBOS MD on Dec 10 2023 12:45PM [facility] DIVISION OF RADIOLOGY * * *Final Report* * * DATE OF EXAM: Dec 10 2023 12:39PM WOX [id number] - XR CHEST 2V FRONTAL/LAT / PROCEDURE REASON: Acute cough * * * * Physician Interpretation * * * * EXAMINATION: CHEST RADIOGRAPH (2 VIEW FRONTAL & LATERAL) CLINICAL HISTORY: Acute cough MQ: XC2_6 EXAM DATE/TIME: 12/10/2023 12:39 PM COMPARISON: Chest x-ray on 06/30/2022 RESULT: Lines, tubes, and devices: None. Lungs and pleura: Questionable small patchy opacity in the lower lobe, only seen on lateral view. No lung mass. No pleural effusion. No pneumothorax. Cardiomediastinal silhouette: Normal cardiomediastinal silhouette. Bones and soft tissues: Unremarkable. DIVISION OF RADIOLOGY Provider, Osiris echeverria Holland - 12/10/2023 * * *Final Report* * * DATE OF EXAM: Dec 10 2023 12:39PM WOX [id number] - XR CHEST 2V FRONTAL/LAT / PROCEDURE REASON: Acute cough * * * * Physician Interpretation * * * * EXAMINATION: CHEST RADIOGRAPH (2 VIEW FRONTAL & LATERAL) CLINICAL HISTORY: Acute cough MQ: XC2_6 EXAM DATE/TIME: 12/10/2023 12:39 PM COMPARISON: Chest x-ray on 06/30/2022 RESULT: Lines, tubes, and devices: None. Lungs and pleura: Questionable small patchy opacity in the lower lobe, only seen on lateral view. No lung mass. No pleural effusion. No pneumothorax. Cardiomediastinal silhouette: Normal cardiomediastinal silhouette. Bones and soft tissues: Unremarkable. IMPRESSION IMPRESSION: Questionable small patchy opacity in the lower lobe. Consider follow-up. Electronic Field Service Engineer: PSCB Transcribe Date/Time: Dec 10 2023 12:43P Dictated by : INDIGO VILLALOBOS MD This examination was interpreted and the report reviewed and electronically signed by: INDIGO VILLALOBOS MD on Dec 10 2023 12:45PM EST [facility] XR Chest PA and LateralOrder ed By: [facility] Provider on 12-10-2023 [facility] 2019 CORONAVIRUSon 3 SARS-CoV-2 (COVID-19) RNA SANDRA+probe Ql (Resp) SARS-CoV-2 (Agent of COVID-19) Not Detected by RT-PCR or equivalent method. Not Detected [facility] ROUTINE FLU A/B + RSVon FLUAV RNA SANDRA+probe Ql (Unsp spec) Positive Abnormal Negative for Influenza A by RT-PCR [facility] FLUBV RNA SANDRA+probe Ql (Unsp spec) Negative Negative for Influenza B by RT-PCR [facility] RSV A RNA SANDRA+probe Ql (Unsp spec) Negative Negative for Respiratory Syncytial Virus (RSV) by PCR [facility] STREP A MOLECULAR (POC)on Procedural Control Valid [facility] Strep A (POCT) Negative Negative [facility] XR CHEST 2V FRONTAL/LATon [facility] XR Chest PA and Lateralon IMPRESSION: Mild hazy opacity in the left lower lung zone, atelectasis versus small focus of bronchopneumonia in the appropriate clinical setting Electronic Field Service Engineer: THERESA Transcribe Date/Time: Jun 30 2022 12:48P Dictated by : CARMEL DAVALOS MD This examination was interpreted and the report reviewed and electronically signed by: CARMEL DAVALOS MD on Jun 30 2022 12:49PM [facility] DIVISION OF RADIOLOGY * * *Final Report* * * DATE OF EXAM: Jun 30 2022 12:46PM WOX [id number] - XR CHEST 2V FRONTAL/LAT / PROCEDURE REASON: Acute cough * * * * Physician Interpretation * * * * EXAMINATION: CHEST RADIOGRAPH (2 VIEW FRONTAL & LATERAL) CLINICAL HISTORY: Acute cough MQ: XC2_6 EXAM DATE/TIME: 06/30/2022 12:46 PM COMPARISON: No relevant prior studies available. RESULT: Lines, tubes, and devices: None. Lungs and pleura: Mild hazy opacity in the left lower lung zone. No pleural effusion or pneumothorax. Cardiomediastinal silhouette: Normal cardiomediastinal silhouette. Bones and soft tissues: Mild pectus excavatum. DIVISION OF RADIOLOGY Provider, [facility] - 06/30/2022 * * *Final Report* * * DATE OF EXAM: Jun 30 2022 12:46PM WOX [id number] - XR CHEST 2V FRONTAL/LAT / PROCEDURE REASON: Acute cough * * * * Physician Interpretation * * * * EXAMINATION: CHEST RADIOGRAPH (2 VIEW FRONTAL & LATERAL) CLINICAL HISTORY: Acute cough MQ: XC2_6 EXAM DATE/TIME: 06/30/2022 12:46 PM COMPARISON: No relevant prior studies available. RESULT: Lines, tubes, and devices: None. Lungs and pleura: Mild hazy opacity in the left lower lung zone. No pleural effusion or pneumothorax. Cardiomediastinal silhouette: Normal cardiomediastinal silhouette. Bones and soft tissues: Mild pectus excavatum. IMPRESSION IMPRESSION: Mild hazy opacity in the left lower lung zone, atelectasis versus small focus of bronchopneumonia in the appropriate clinical setting Electronic Field Service Engineer: THERESA Transcribe Date/Time: Jun 30 2022 12:48P Dictated by : CARMEL DAVALOS MD This examination was interpreted and the report reviewed and electronically signed by: CARMEL DAVALOS MD on Jun 30 2022 12:49PM EST [facility] Radiology Study observation (narrative) [facility] XR Chest PA and LateralOrder ed By: [facility] Provider on 06-30-2022 [facility] STREP A MOLECULAR (POC)on Procedural Control Valid [facility] Strep A (POCT) Negative Negative [facility] CBC W Auto Differential pane l (Bld)on 12-02-2021 Abs Immature Gran <0.03 <0.10 k/uL [facility] Basophils (Bld) [#/Vol] 0.03 10*3/uL <0.11 k/uL [facility] Basophils/100 WBC (Bld) 0.4 % [facility] Differential cell count method Nom (Bld) Auto [facility] Eosinophils (Bld) [#/Vol] 0.05 10*3/uL <0.46 k/uL [facility] Eosinophils/100 WBC (Bld) 0.7 % [facility] Erythrocyte distribution width (RBC) [Ratio] 11.4 % Low 11.5 - 15.0 % [facility] Hematocrit (Bld) [Volume fraction] 44.8 % 39.0 - 51.0 % [facility] Hemoglobin (Bld) [Mass/Vol] 15.3 g/dL 13.0 - 17.0 g/dL [facility] Immature Gran % 0.3 % [facility] Lymphocytes (Bld) [#/Vol] 1.72 10*3/uL 1.00 - 4.00 k/uL [facility] Lymphocytes/100 WBC (Bld) 24.0 % [facility] MCH (RBC) [Entitic mass] 29.8 pg 26.0 - 34.0 pg [facility] MCHC (RBC) [Mass/Vol] 34.2 g/dL 30.5 - 36.0 g/dL [facility] MCV (RBC) [Entitic vol] 87.3 fL 80.0 - 100.0 fL [facility] Monocytes (Bld) [#/Vol] 0.57 10*3/uL <0.87 k/uL [facility] Monocytes/100 WBC (Bld) 8.0 % [facility] Neutrophils (Bld) [#/Vol] 4.77 10*3/uL 1.45 - 7.50 k/uL [facility] Neutrophils/100 WBC (Bld) 66.6 % [facility] Nucleated RBC (Bld) [#/Vol] 10*3/uL <0.01 k/uL [facility] Nucleated RBC/100 WBC (Bld) [Ratio] 0.0 /100 WBC [facility] Platelet mean volume (Bld) [Entitic vol] 10.9 fL 9.0 - 12.7 fL [facility] Platelets (Bld) [#/Vol] 200 10*3/uL 150 - 400 k/uL [facility] RBC (Bld) [#/Vol] 5.13 10*6/uL 4.20 - 6.0 0 m/uL [facility] WBC (Bld) [#/Vol] 7.16 10*3/uL 3.70 - 11. 00 k/uL [facility] CTA CARDIAC W/WO CONTRASTon 12-20-2018 CTA CARDIAC W/WO CONTRAST CTA CARDIAC W/WO CONTRAST Ordering Physician: Deepak Dockery MD 12/20/2018 7:[address] CORONARY ANGIOGRAM: Comparison: None Clinical Statement: Chest pain. Abnormal stress test. Myocardial lower area was given. TECHNIQUE: Unenhanced axial scans were initially obtained followed by EKG-gated contrast-enhanced CT coronary angiogram during the intravenous administration of 100 cc of Visipaque 320. Multiplanar 2 D and 3 D reconstructions were obtained. At a separate workstation, advanced post processing, including vessel analysis, was performed by interpreting physician. FINDINGS: There is excellent visualization of the common origin of the LAD and the left circumflex coronary artery. The LAD is a moderate caliber vessel extending to the apex of the heart. Single diagonal branch is demonstrated. The left circumflex coronary artery gives rise to moderate caliber bifurcating obtuse marginal coronary artery, and terminating in 3-4 posterior lateral branches. The right coronary artery is a small caliber vessel, giving rise to the posterior descending artery. The patient is right dominant. There are no calcified or noncalcified atheromatous depositions associated with the right or the left coronary circulation. There are no vascular stenoses. There is no abnormal cardiac chamber enlargement. Aortic root is normal in caliber. Aortic valve is trileaflet. No valvular or annular calcifications. Mitral valve demonstrates no valvular or annular calcifications. Pericardium is normal in thickness without effusion. Surrounding lungs are clear. Upper abdomen, as visualized, is unremarkable. IMPRESSION: Normal CT coronary angiogram. Negative for coronary artery stenosis. ---- Electronic Signature on File ---- Signed By: Janelle Aguila MD [email or web address] Dictated: 12/20/2018 10:07 AM Signed: 12/20/2018 10:31 AM Reported By: JANELLE AGUILA M.D. Signed By: JANELLE AGUILA M.D. [facility] Vital Signs Date Time Vital Sign Value Performing Clinician Faci lity 02-08-2025 08:48-0400 Diastolic blood pressure 80 mm[Hg] Carlton Katz MD Work Phone: [facility] 02-08-2025 08:48-0400 Systolic blood pressure 120 mm[Hg] Carlton Katz MD Work Phone: [facility] 02-08-2025 08:10-0400 Body height 177.8 cm Carlton Katz MD Work Phone: [facility] 02-08-2025 08:10-0400 Body mass index (BMI) [Ratio] 26.52 kg/m2 Carlton Katz MD Work Phone: [facility] 02-08-2025 08:10-0400 Body weight 83.83 kg Carlton Katz MD Work Phone: [facility] 02-08-2025 08:10-0400 Heart rate 68 /min Carlton Katz MD Work Phone: [facility] 02-08-2025 08:10-0400 Respiratory rate 16 /min Carlton Katz MD Work Phone: [facility] 04-15-2024 08:51-0400 Body height 177.8 cm Adeline Pillai APRN.CNP Work Phone: [facility] 04-15-2024 08:51-0400 Body mass index (BMI) [Ratio] 23.68 kg/m2 Adeline Pillai MACHINE I TRIMMER.ASSOCIATE PUBLISHER Work Phone: [facility] 04-15-2024 08:51-0400 Body weight 74.84 kg Adeline Pillai MACHINE I TRIMMER.ASSOCIATE PUBLISHER Work Phone: [facility] 04-15-2024 08:51-0400 Diastolic blood pressure 82 mm[Hg] Adeline Pillai MACHINE I TRIMMER.ASSOCIATE PUBLISHER Work Phone: [facility] 04-15-2024 08:51-0400 Heart rate 64 /min Adeline Pillai MACHINE I TRIMMER.ASSOCIATE PUBLISHER Work Phone: [facility] 04-15-2024 08:51-0400 Systolic blood pressure 140 mm[Hg] Adeline Pillai MACHINE I TRIMMER.ASSOCIATE PUBLISHER Work Phone: [facility] 02-09-2024 08:18-0400 Diastolic blood pressure 80 mm[Hg] Carlton Katz MD Work Phone: [facility] 02-09-2024 08:18-0400 Systolic blood pressure 122 mm[Hg] Carlton Katz MD Work Phone: [facility] 02-09-2024 07:49-0400 Body height 179.1 cm Carlton Katz MD Work Phone: [facility] 02-09-2024 07:49-0400 Body mass index (BMI) [Ratio] 22.63 kg/m2 Carlton Katz MD Work Phone: [facility] 02-09-2024 07:49-0400 Body weight 72.58 kg Carlton Katz MD Work Phone: [facility] 02-09-2024 07:49-0400 Heart rate 80 /min Carlton Katz MD Work Phone: [facility] 02-09-2024 07:49-0400 Respiratory rate 16 /min Carlton Katz MD Work Phone: [facility] 12-10-2023 12:23-0400 Body mass index (BMI) [Ratio] 23.5 kg/m2 Krislyn Aberegg PA Work Phone: [facility] 12-10-2023 12:23-0400 Body temperature 101.1 [degF] Krislyn Aberegg PA Work Phone: [facility] 12-10-2023 12:23-0400 Body weight 74.3 kg Krislyn Aberegg PA Work Phone: [facility] 12-10-2023 12:23-0400 Diastolic blood pressure 80 mm[Hg] Krislyn Aberegg PA Work Phone: [facility] 12-10-2023 12:23-0400 Heart rate 114 /min Krislyn Aberegg PA Work Phone: [facility] 12-10-2023 12:23-0400 Respiratory rate 18 /min Krislyn Aberegg PA Work Phone: [facility] 12-10-2023 12:23-0400 SaO2% (BldA) [Mass fraction] 98 % Krislyn Aberegg PA Work Phone: [facility] 12-10-2023 12:23-0400 Systolic blood pressure 148 mm[Hg] Krislyn Aberegg PA Work Phone: [facility] 09-10-2023 08:05-0500 Body temperature 98.01 [degF] Judith Praisler-Wood MACHINE I TRIMMER.ASSOCIATE PUBLISHER Work Phone: [facility] 09-10-2023 08:05-0500 Body weight 75.3 kg Judith Praisler-Wood MACHINE I TRIMMER.ASSOCIATE PUBLISHER Work Phone: [facility] 09-10-2023 08:05-0500 Diastolic blood pressure 84 mm[Hg] Judith Praisler-Wood MACHINE I TRIMMER.ASSOCIATE PUBLISHER Work Phone: [facility] 09-10-2023 08:05-0500 Heart rate 82 /min Judith Praisler-Wood MACHINE I TRIMMER.ASSOCIATE PUBLISHER Work Phone: [facility] 09-10-2023 08:05-0500 Respiratory rate 18 /min Judith Hobbs-Dominic MACHINE I TRIMMER.ASSOCIATE PUBLISHER Work Phone: [facility] 09-10-2023 08:05-0500 SaO2% (BldA) [Mass fraction] 98 % Judith Rosalesler-Wood MACHINE I TRIMMER.ASSOCIATE PUBLISHER Work Phone: [facility] 09-10-2023 08:05-0500 Systolic blood pressure 127 mm[Hg] Judith Hobbs-Dominic MACHINE I TRIMMER.ASSOCIATE PUBLISHER Work Phone: [facility] 02-03-2023 07:47-0400 Body weight 71.67 kg Carlton Katz MD Work Phone: [facility] 02-03-2023 07:47-0400 Diastolic blood pressure 78 mm[Hg] Carlton Katz MD Work Phone: [facility] 02-03-2023 07:47-0400 Heart rate 74 /min Carlton Katz MD Work Phone: [facility] 02-03-2023 07:47-0400 Respiratory rate 14 /min Carlton Katz MD Work Phone: [facility] 02-03-2023 07:47-0400 Systolic blood pressure 118 mm[Hg] Carlton Katz MD Work Phone: [facility] 08-10-2022 11:01-0500 Body temperature 97.2 [degF] Porfirio Ball MACHINE I TRIMMER.ASSOCIATE PUBLISHER Work Phone: [facility] 08-10-2022 11:01-0500 Body weight 77.11 kg Porfirio Ball MACHINE I TRIMMER.ASSOCIATE PUBLISHER Work Phone: [facility] 08-10-2022 11:01-0500 Diastolic blood pressure 72 mm[Hg] Porfirio Ball MACHINE I TRIMMER.ASSOCIATE PUBLISHER Work Phone: [facility] 08-10-2022 11:01-0500 Heart rate 92 /min Porfirio Ball MACHINE I TRIMMER.ASSOCIATE PUBLISHER Work Phone: [facility] 08-10-2022 11:01-0500 Respiratory rate 16 /min Porfirio Ball MACHINE I TRIMMER.ASSOCIATE PUBLISHER Work Phone: [facility] 08-10-2022 11:01-0500 SaO2% (BldA) [Mass fraction] 99 % Porfirio Copeland MACHINE I TRIMMER.ASSOCIATE PUBLISHER Work Phone: [facility] 08-10-2022 11:01-0500 Systolic blood pressure 122 mm[Hg] Porfirio Copeland MACHINE I TRIMMER.ASSOCIATE PUBLISHER Work Phone: [facility] 06-30-2022 11:59-0500 Body temperature 97.9 [degF] Carolina Athy PA-C Work Phone: [facility] 06-30-2022 11:59-0500 Body weight 75.93 kg Carolina Athy PA-C Work Phone: [facility] 06-30-2022 11:59-0500 Diastolic blood pressure 76 mm[Hg] Carolina Athy PA-C Work Phone: [facility] 06-30-2022 11:59-0500 Heart rate 76 /min Carolina Athy PA-C Work Phone: [facility] 06-30-2022 11:59-0500 Respiratory rate 18 /min Carolina Athy PA-C Work Phone: [facility] 06-30-2022 11:59-0500 SaO2% (BldA) [Mass fraction] 99 % Carolina Athy PA-C Work Phone: [facility] 06-30-2022 11:59-0500 Systolic blood pressure 120 mm[Hg] Carolina Athy PA-C Work Phone: [facility] 06-07-2022 08:08-0400 Body temperature 98.01 [degF] Luigi Saeed MACHINE I TRIMMER.ASSOCIATE PUBLISHER Work Phone: [facility] 06-07-2022 08:08-0400 Body weight 75.84 kg Luigi Saeed MACHINE I TRIMMER.ASSOCIATE PUBLISHER Work Phone: [facility] 06-07-2022 08:08-0400 Diastolic blood pressure 82 mm[Hg] Luigi Saeed MACHINE I TRIMMER.ASSOCIATE PUBLISHER Work Phone: [facility] 06-07-2022 08:08-0400 Heart rate 97 /min Luigi Saeed MACHINE I TRIMMER.ASSOCIATE PUBLISHER Work Phone: [facility] 06-07-2022 08:08-0400 Respiratory rate 16 /min Luigi Saeed MACHINE I TRIMMER.ASSOCIATE PUBLISHER Work Phone: [facility] 06-07-2022 08:08-0400 SaO2% (BldA) [Mass fraction] 99 % Luigi Saeed MACHINE I TRIMMER.ASSOCIATE PUBLISHER Work Phone: [facility] 06-07-2022 08:08-0400 Systolic blood pressure 132 mm[Hg] Luigi Saeed MACHINE I TRIMMER.ASSOCIATE PUBLISHER Work Phone: [facility] 01-31-2022 08:44-0400 Body height 177.8 cm Carlton Katz MD Work Phone: [facility] 01-31-2022 08:44-0400 Body weight 74.84 kg Carlton Katz MD Work Phone: [facility] 01-31-2022 08:44-0400 Diastolic blood pressure 78 mm[Hg] Carlton Katz MD Work Phone: [facility] 01-31-2022 08:44-0400 Heart rate 64 /min Carlton Katz MD Work Phone: [facility] 01-31-2022 08:44-0400 Respiratory rate 18 /min Carlton Katz MD Work Phone: [facility] 01-31-2022 08:44-0400 Systolic blood pressure 116 mm[Hg] Carlton Katz MD Work Phone: [facility] 12-02-2021 09:19-0400 Body weight 77.47 kg Maritza Betts MACHINE I TRIMMER.ASSOCIATE PUBLISHER Work Phone: [facility] 12-02-2021 09:19-0400 Diastolic blood pressure 84 mm[Hg] Maritza Betts MACHINE I TRIMMER.ASSOCIATE PUBLISHER Work Phone: [facility] 12-02-2021 09:19-0400 Heart rate 62 /min Maritza Betts MACHINE I TRIMMER.ASSOCIATE PUBLISHER Work Phone: [facility] 12-02-2021 09:19-0400 Respiratory rate 18 /min Maritzabrendon Betts MACHINE I TRIMMER.ASSOCIATE PUBLISHER Work Phone: [facility] 12-02-2021 09:19-0400 Systolic blood pressure 128 mm[Hg] Maritza Betts MACHINE I TRIMMER.ASSOCIATE PUBLISHER Work Phone: [facility] Encounters Encounter Date Encounter Type Care Provider Facility Start: 04-18-2025 ambulatory Carlton Katz Facility :[facility] Start: 03-02-2025 End: 03-05-2025 ambulatory Carlton Katz MD Work Phone: [facility] Comment on above: Wellbutrin Start: 02-21-2025 End: 03-21-2025 ambulatory Carlton Katz MD Work Phone: [facility] Comment on above: Calcium score test Start: 02-08-2025 Encounter for genera l adult medical examination without abnormal findings CARLTON KATZ [facility] Start: 02-08-2025 End: 02-08-2025 Patient encounter procedure Carlton Katz MD Work Phone: [facility] Comment on above: Well adult exam (Mariana collins Dx); Mixed hyperlipidemia; Chronic nonintractable headache, unspecified headache type; Stress reaction; CE (obstructive sleep apnea); Family history of early CAD; Screening for depression; Medication management; Encounter for screening for diabetes mellitus Start: 02-08-2025 End: 02-08-2025 Patient encounter status Carlton Katz MD Work Phone: [facility] Work Phone: Start: 02-08-2025 End: 02-08-2025 ambulatory CARLTON KATZ Facility:[facility] Start: 01-27-2025 End: 01-27-2025 ambulatory CARLTON KATZ Facility:[facility] Start: 12-25-2024 End: 12-26-2024 ambulatory Carlton Katz MD Work Phone: [facility] Start: 12-25-2024 End: 12-26-2024 Patient encounter procedure Carlton Katz MD Work Phone: [facility] [place] Comment on above: Upcoming appointment Start: 11-16-2024 End: 11-16-2024 ambulatory Carlton Katz MD Work Phone: [facility] Comment on above: E Script Start: 11-16-2024 End: 11-16-2024 Patient encounter status Carlton Katz MD Work Phone: [facility] Work Phone: Start: 08-14-2024 End: 08-15-2024 Refill Carlton Katz MD Work Phone: [facility] Comment on above: Refill Request Start: 06-16-2024 End: 06-16-2024 Telephone encounter Carlton Katz MD Work Phone: [facility] Comment on above: Prior Authorization- Approval Start: 06-01-2024 End: 06-01-2024 Telephone encounter Adeline Pillai APRN.ASSOCIATE PUBLISHER Work Phone: [facility] Comment on above: Results Start: 05-31-2024 End: 05-31-2024 Patient encounter procedure Eligio Sheehan RT(R) Nuclear Medicine Start: 05-31-2024 End: 05-31-2024 ambulatory Eligio Sheehan RT(R) [facility] Comment on above: Radiology [place] Start: 05-31-2024 End: 05-31-2024 Subsequent hospital visit by physician Prep Room 1 [facility] Comment on above: Dizziness [R42] Mixed hyperlipidemia [E78.2] Start: 05-20-2024 End: 05-20-2024 ambulatory Mena Miranda APRN.ASSOCIATE PUBLISHER Work Phone: Neurology Comment on above: CE (obstructive sle ep apnea) (Primary Dx); Hypertension, unspecified type Start: 05-20-2024 End: 05-20-2024 Telemedicine consultation with patient Mena Brandy FRANZASSOCIATE PUBLISHER Work Phone: Neurology Start: 04-15-2024 End: 04-15-2024 Patient encounter procedure Adeline Pillai MACHINE I TRIMMER.ASSOCIATE PUBLISHER Work Phone: [facility] Comment on above: Mixed hyperlipidemia (Primary Dx); Dizziness; Family history of early CAD; SOB (shortness of breath); Stable angina (HCC); Elevated blood pressure reading in office with diagnosis of hypertension Start: 04-15-2024 End: 04-15-2024 ambulatory ADELINE PILLAI Facility:[id number] Start: 03-08-2024 Telephone encounter Carlton Katz MD Work Phone: [facility] Comment on above: PA Approved Start: 03-01-2024 Telephone encounter Keenan Lucas MD Work Phone: [facility] [place] Comment on above: Results Start: 02-23-2024 End: 02-24-2024 ambulatory CARLTON KATZ Facility:[facility] Start: 02-10-2024 Chart [facility] Work Phone: Neurology Start: 02-10-2024 Telephone encounter Carlton Katz MD Work Phone: [facility] [place] Comment on above: Results Start: 02-09-2024 End: 02-09-2024 Patient encounter procedure Carlton Katz MD Work Phone: [facility] Comment on above: Well adult exam (Mariana dennis Dx); Chronic nonintractable headache, unspecified headache type; Dizziness; Snores; Hypersomnolence; Witnessed episode of apnea; Family history of early CAD; Encounter for lipid screening for cardiovascular disease; Encounter for screening for diabetes mellitus; Stress reaction Start: 02-09-2024 End: 02-09-2024 Patient encounter status Carlton Katz MD Work Phone: [facility] Work Phone: Start: 12-10-2023 End: 12-10-2023 Subsequent hospital visit by physician [facility] Work Phone: Radiology Comment on above: Acute cough [R05.1] Start: 12-10-2023 End: 12-10-2023 Patient encounter procedure Arnaldo RAMÍREZ Work Phone: [facility] Comment on above: Bacterial pneumonia (Primary Dx); Acute cough Start: 09-10-2023 End: 09-10-2023 Patient encounter procedure Judith Alexandra APRN.ASSOCIATE PUBLISHER Work Phone: [facility] Comment on above: Sinobronchitis (Prim holly Dx); Otitis media with effusion, left Start: 02-04-2023 Telephone encounter Carlton Katz MD Work Phone: [facility] [place] Comment on above: Results Start: 02-03-2023 End: 02-03-2023 Patient encounter procedure Carlton Katz MD Work Phone: [facility] Comment on above: Well adult exam (Mariana dennis Dx); Chronic nonintractable headache, unspecified headache type; Encounter for screening for diabetes mellitus; Encounter for lipid screening for cardiovascular disease Start: 02-03-2023 End: 02-03-2023 Patient encounter status Carlton Katz MD Work Phone: [facility] [place] Start: 08-10-2022 End: 08-10-2022 Office outpatient visit 10 minutes Porfirio Copeland APRN.ASSOCIATE PUBLISHER Work Phone: [facility] Comment on above: Sore throat (Primary Dx); Viral URI with cough Start: 07-07-2022 ambulatory Carlton haro MD Work Phone: [facility] Comment on above: Question regarding X R CHEST 2V FRONTAL/LAT Start: 06-30-2022 Telephone encounter Carolina HarrellC Work Phone: [facility] Comment on above: Results Start: 06-30-2022 End: 06-30-2022 Subsequent hospital visit by physician [facility] [place] Work Phone: Radiology Comment on above: Acute cough [R05.1] Start: 06-30-2022 End: 06-30-2022 Patient encounter procedure Carolina Camargo PA-C Work Phone: [facility] Comment on above: Viral bronchitis (Pr imary Dx) Start: 06-07-2022 End: 06-07-2022 Patient encounter procedure Luigi Saeed MACHINE I TRIMMER.ASSOCIATE PUBLISHER Work Phone: [facility] Comment on above: URI, acute (Primary Dx); Sore throat; ETD (Eustachian tube dysfunction), bilateral Start: 02-02-2022 Telephone encounter Carlton Katz MD Work Phone: [facility] Comment on above: Results Start: 01-31-2022 End: 01-31-2022 Patient encounter procedure Carlton Katz MD Work Phone: [facility] [place] Comment on above: Well adult exam (Mariana dennis Dx); Chronic nonintractable headache, unspecified headache type; Family history of early CAD; Encounter for lipid screening for cardiovascular disease Start: 01-31-2022 End: 01-31-2022 Patient encounter status Carlton Katz MD Work Phone: [facility] Start: 12-02-2021 End: 12-02-2021 Patient encounter procedure Maritza Betts APRN.ASSOCIATE PUBLISHER Work Phone: [facility] Comment on above: Fatigue, unspecified type (Primary Dx); Dizziness; Screening for diabetes mellitus Start: 01-02-2021 Patient encounter status Tyler Betts APRN.ASSOCIATE PUBLISHER Work Phone: [facility] Work Phone: Procedures Date Procedure Procedure Detail Performing Clinician Start: 02-08-2025 Adult depression scr eening assessment Carlton Katz MD Work Phone: Start: 01-27-2025 Lipid 1996 panel - S jaimie or Plasma Carlton Katz MD Work Phone: Start: 06-01-2024 Echo tthrc r-t 2d w/wom-mode compl spec&colr d Adeline Pillai APRN.ASSOCIATE PUBLISHER Work Phone: Start: 05-31-2024 Myocardial spect mul tiple studies Adeline Pillai MACHINE I TRIMMER.ASSOCIATE PUBLISHER Work Phone: Start: 04-15-2024 Ecg routine ecg w/le ast 12 lds i&r only Adeline Neal Rosas MACHINE I TRIMMER.ASSOCIATE PUBLISHER Work Phone: Start: 02-09-2024 Lipid 1996 panel - S jaimie or Plasma Carlton Katz MD Work Phone: Start: 12-10-2023 Radiologic exam ches t 2 views Arnaldo RAMÍREZ Work Phone: Start: 02-03-2023 Lipid 1996 panel - S jaimie or Plasma Judith Alexandra MACHINE I TRIMMER.ASSOCIATE PUBLISHER Work Phone: Start: 08-10-2022 2019 CORONAVIRUS Porfirio Copeland MACHINE I TRIMMER.[facility] Work Phone: Start: 08-10-2022 Iadna respiratry pro be & rev trnscr 3-5 targets Porfirio Copeland MACHINE I TRIMMER.ASSOCIATE PUBLISHER Work Phone: Start: 08-10-2022 STREP A MOLECULAR (POC) Judith Alexandra MACHINE I TRIMMER.ASSOCIATE PUBLISHER Work Phone: Start: 06-30-2022 Radiologic exam ches t 2 views Carolina Camargo PA-C Work Phone: Start: 06-07-2022 STREP A MOLECULAR (POC) [facility] Provider Start: 01-31-2022 Adult depression scr eening assessment Carlton Katz MD Work Phone: Plan of Treatment Date Care Activity Detail Author Start: 01-02-2031 Urine microalbumin profile [facility] Start: 01-27-2030 Lipid panel Lipid Screening [facility] Start: 02-08-2029 Lipid panel Lipid Screening [facility] Start: 02-04-2028 Lipid panel Lipid Screening [facility] Start: 02-04-2028 LIPID SCREEN LIPID SCREEN [facility] Start: 01-31-2027 LIPID SCREEN LIPID SCREEN [facility] Start: 02-08-2026 Annual PCP Team Alarm Signaler huan Disease Visit Annual PCP Team Chronic Disease Visit [facility] Start: 02-08-2026 Depression Screening Depression Scre ening [facility] Start: 02-06-2026 End: 02-06-2026 Patient encounter procedure 02/06/2026 8:00 AM EDT Office Visit [facility] [address] [place] [address] Carlton Katz MD [address] [place] [address] Wellness [facility] Comment on above: Wellness Start: 01-26-2026 End: 04-27-2026 CBC W Auto Differential panel - Blood COMPLETE BLOOD COUNT AND DIFFERENTIAL Lab Routine Stress reaction Medication management Expected: 01/26/2026, Expires: 04/27/2026 [facility] Comment on above: Expected: 01/26/2026 , Expires: 04/27/2026 Start: 01-26-2026 End: 04-27-2026 Cobalamin (Vitamin B12) [Mass/volume] in Serum or Plasma VITAMIN B12 Lab Routine Stress reaction Medication management Expected: 01/26/2026, Expires: 04/27/2026 [facility] Work Phone: Comment on above: Expected: 01/26/2026 , Expires: 04/27/2026 Start: 01-26-2026 End: 04-27-2026 Comprehensive metabolic 2000 panel - Serum or Plasma COMPREHENSIVE METABOLIC PANEL Lab Routine Mixed hyperlipidemia Expected: 01/26/2026, Expires: 04/27/2026 [facility] Comment on above: Expected: 01/26/2026 , Expires: 04/27/2026 Start: 01-26-2026 End: 04-27-2026 Hemoglobin A1c in Blood HEMOGLOBIN A1C Lab Routine Well adult exam Encounter for screening for diabetes mellitus Expected: 01/26/2026, Expires: 04/27/2026 [facility] Comment on above: Expected: 01/26/2026 , Expires: 04/27/2026 Start: 01-26-2026 End: 04-27-2026 LIPID PANEL, NONFASTING LIPID PANEL, NONFASTING Lab Routine Mixed hyperlipidemia Expected: 01/26/2026, Expires: 04/27/2026 [facility] Comment on above: Expected: 01/26/2026 , Expires: 04/27/2026 Start: 01-26-2026 End: 04-27-2026 Thyrotropin [Units/volume] in Serum or Plasma THYROID STIMULATING HORMONE Lab Routine Stress reaction Medication management Expected: 01/26/2026, Expires: 04/27/2026 [facility] Comment on above: Expected: 01/26/2026 , Expires: 04/27/2026 Start: 01-26-2026 End: 04-27-2026 Urinalysis complete panel - Urine URINALYSIS, WITH MICROSCOPIC Lab Routine Mixed hyperlipidemia Expected: 01/26/2026, Expires: 04/27/2026 [facility] Comment on above: Expected: 01/26/2026 , Expires: 04/27/2026 Start: 01-02-2026 LIPID SCREEN LIPID SCREEN [facility] Start: 08-11-2025 End: 11-10-2025 LIPID PANEL, NONFASTING LIPID PANEL, NONFASTING Lab Routine Mixed hyperlipidemia Expected: 08/11/2025, Expires: 11/10/2025 [facility] Comment on above: Expected: 08/11/2025 , Expires: 11/10/2025 Start: 08-11-2025 End: 08-11-2025 ambulatory 08/11/2025 7:45 AM EST Results Only [facility] [address] [place] [address] [facility] Start: 04-10-2025 Influenza vaccination Influenza Vacc ine (#1) [facility] Start: 02-08-2025 Annual PCP Team Alarm Signaler huan Disease Visit Annual PCP Team Chronic Disease Visit [facility] Start: 02-08-2025 End: 02-08-2025 Patient encounter procedure [facility] Comment on above: Physical Start: 01-27-2025 End: 04-28-2025 CBC W Auto Differential panel - Blood COMPLETE BLOOD COUNT AND DIFFERENTIAL Lab Routine Medication management Expected: 01/27/2025, Expires: 04/28/2025 [facility] Comment on above: Expected: 01/27/2025 , Expires: 04/28/2025 Start: 01-27-2025 End: 04-28-2025 Comprehensive metabolic 2000 panel - Serum or Plasma COMPREHENSIVE METABOLIC PANEL Lab Routine Mixed hyperlipidemia Expected: 01/27/2025, Expires: 04/28/2025 [facility] Work Phone: Comment on above: Expected: 01/27/2025 , Expires: 04/28/2025 Start: 01-27-2025 End: 04-28-2025 Hemoglobin A1c in Blood HEMOGLOBIN A1C Lab Routine Encounter for screening for diabetes mellitus Expected: 01/27/2025, Expires: 04/28/2025 [facility] Comment on above: Expected: 01/27/2025 , Expires: 04/28/2025 Start: 01-27-2025 End: 04-28-2025 LIPID PANEL, NONFASTING LIPID PANEL, NONFASTING Lab Routine Mixed hyperlipidemia Expected: 01/27/2025, Expires: 04/28/2025 [facility] Comment on above: Expected: 01/27/2025 , Expires: 04/28/2025 Start: 01-27-2025 End: 04-28-2025 Thyrotropin [Units/volume] in Serum or Plasma THYROID STIMULATING HORMONE Lab Routine Medication management Expected: 01/27/2025, Expires: 04/28/2025 [facility] Comment on above: Expected: 01/27/2025 , Expires: 04/28/2025 Start: 01-27-2025 End: 04-28-2025 Urinalysis complete panel - Urine URINALYSIS, WITH MICROSCOPIC Lab Routine Mixed hyperlipidemia Expected: 01/27/2025, Expires: 04/28/2025 [facility] Comment on above: Expected: 01/27/2025 , Expires: 04/28/2025 Start: 01-27-2025 End: 01-27-2025 ambulatory 01/27/2025 7:45 AM EDT Results Only [facility] [address] [place] [address] [facility] Start: 06-22-2024 End: 06-22-2024 Patient encounter procedure 06/22/2024 8:00 AM EST Office Visit Neurology [address] [place] [address] Romelia Vasques, AVRIL.ASSOCIATE PUBLISHER [address] [place] [address] CE (obstructive sleep apnea) [G47.33] Neurology Comment on above: CE (obstructive sle ep apnea) [G47.33] Start: 05-31-2024 End: 05-31-2024 Patient encounter procedure Nuclear Medicine Comment on above: EPIC ORDER Start: 05-20-2024 End: 05-20-2024 ambulatory 05/20/2024 11:00 AM EDT [facility] Neurology [address] [place] [address] Mena Miranda APRN.ASSOCIATE PUBLISHER [address] [place] [address] CE (obstructive sleep apnea) [G47.33] Neurology Comment on above: CE (obstructive sle ep apnea) [G47.33] Start: 04-15-2024 End: 04-15-2025 Echocardiography ECHO Cardiology Routine Mixed hyperlipidemia Dizziness Family history of early CAD SOB (shortness of breath) Expected: 04/15/2024, Expires: 04/15/2025 [facility] Work Phone: Comment on above: Expected: 04/15/2024 , Expires: 04/15/2025 Start: 04-15-2024 End: 05-15-2025 NM Heart Perfusion W multiple states of exercise NM CARDIAC PERF STRESS/EXERCISE Radiology Routine Dizziness Family history of early CAD SOB (shortness of breath) Stable angina (HCC) Expected: 04/15/2024, Expires: 05/15/2025 [facility] Comment on above: Expected: 04/15/2024 , Expires: 05/15/2025 Start: 04-10-2024 Influenza vaccination Influenza Vacc ine (#1) [facility] Start: 02-24-2024 End: 02-24-2024 Patient encounter procedure 02/24/2024 10:00 AM EDT Office Visit Neurology [address] [place] [address] Snores [R06.83]; Hypersomnolence [G47.10]; Witnessed episode of apnea [R06.81] Neurology Comment on above: Snores [R06.83]; Hyp ersomnolence [G47.10]; Witnessed episode of apnea [R06.81] Start: 02-09-2024 End: 05-10-2024 LIPID PANEL, NONFASTING [facility] Work Phone: Comment on above: Expected: 02/09/2024 , Expires: 05/10/2024 Start: 02-09-2024 End: 02-09-2024 Patient encounter procedure 02/09/2024 8:00 AM EDT Office Visit Family Medicine [facility] [address] [place] [address] Carlton Katz MD [address] [place] [place] [id number] physical Family Medicine [facility] Comment on above: physical Start: 02-04-2024 COVID-19 VACCINE (3 - Booster for Pfizer series) COVID-19 VACCINE (3 - Booster for Pfizer series) [facility] Comment on above: Postponed from 04/19 (Declined at this time) Start: 08-10-2023 Behavioral Health Screening Behavioral Health Screening [facility] Start: 08-10-2023 Depression Assessment Depression Ass essment [facility] Start: 04-10-2023 Covid-19 Vaccine ( season) Covid-19 Vaccine () [facility] Start: 04-10-2023 Influenza vaccination INFLUENZA (Sea son Ended) [facility] Start: 02-03-2023 End: 04-05-2023 Hemoglobin A1c in Blood [facility] Work Phone: Comment on above: Expected: 02/03/2023 , Expires: 04/05/2023 Start: 02-03-2023 End: 04-05-2023 LIPID PANEL, NONFASTING [facility] Work Phone: Comment on above: Expected: 02/03/2023 , Expires: 04/05/2023 Start: 01-31-2023 Adult depression screening assessment DEPRESSION SCREENING [facility] Start: 08-10-2022 DEPRESSION ASSESSMENT DEPRESSION ASS ESSMENT [facility] Start: 04-10-2022 Influenza vaccination INFLUENZA (#1) [facility] Start: 01-31-2022 End: 04-02-2022 LIPID PANEL, NONFASTING [facility] Work Phone: Comment on above: Expected: 01/31/2022 , Expires: 04/02/2022 Start: 12-02-2021 End: 02-01-2022 Comprehensive metabolic 2000 panel - Serum or Plasma [facility] Work Phone: Comment on above: Expected: 12/02/2021 , Expires: 02/01/2022 Start: 12-02-2021 End: 02-01-2022 Folate [Mass/volume] in Serum or Plasma [facility] Work Phone: Comment on above: Expected: 12/02/2021 , Expires: 02/01/2022 Start: 12-02-2021 End: 02-01-2022 Hemoglobin A1c/Hemoglobin.total in Blood [facility] Work Phone: Comment on above: Expected: 12/02/2021 , Expires: 02/01/2022 Start: 12-02-2021 End: 02-01-2022 T4 FREE/FREE THYROX [facility] Work Phone: Comment on above: Expected: 12/02/2021 , Expires: 02/01/2022 Start: 12-02-2021 End: 02-01-2022 Thyrotropin [Units/volume] in Serum or Plasma [facility] Work Phone: Comment on above: Expected: 12/02/2021 , Expires: 02/01/2022 Start: 12-02-2021 End: 02-01-2022 VITAMIN B12 BLOOD [facility] Work Phone: Comment on above: Expected: 12/02/2021 , Expires: 02/01/2022 Start: 12-02-2021 End: 02-01-2022 VITAMIN D 25 HYDROXY [facility] Work Phone: Comment on above: Expected: 12/02/2021 , Expires: 02/01/2022 Start: 08-10-2021 DEPRESSION ASSESSMENT DEPRESSION ASS ESSMENT [facility] Start: 07-25-2021 COVID-19 VACCINE (3 - Booster for Pfizer series) COVID-19 VACCINE (3 - Booster for Pfizer series) [facility] Start: 04-19-2021 COVID-19 VACCINE (3 - Booster for Pfizer series) COVID-19 VACCINE (3 - Booster for Pfizer series) [facility] Start: 2012 HPV Vaccine (1 - 3-d ose SCDM series) HPV Vaccine (1 - 3-dose SCDM series) [facility] Start: 2003 BP Controlled (<130/80) BP Controlle d (<130/80) [facility] Start: 2003 Depression Screening Depression Scre ening [facility] Start: 1985 HEPATITIS B (1 of 3 - 3-dose series) HEPATITIS B (1 of 3 - 3-dose series) [facility] ALERE STREP A TEST (AG) ALERE ST REP A TEST (AG) Lab Routine Sore throat Ordered: 06/07/2022 [facility] Work Phone: Comment on above: Ordered: 06/07/2022 End: 04-19-2026 CT Heart and Coronary arteries for calcium scoring WO contrast CT CALCIUM SCORING SELF PAY Radiology Routine Encounter for screening for cardiovascular disorders 1 Occurrences starting 03/20/2025 until 04/19/2026 [facility] Work Phone: Comment on above: 1 Occurrences starti ng 03/20/2025 until 04/19/2026 End: 12-02-2022 ECG COMPLETE ECG COMPLETE ECG Routine Dizziness 1 Occurrences starting 12/02/2021 until 12/02/2022 [facility] Work Phone: Comment on above: 1 Occurrences starti ng 12/02/2021 until 12/02/2022 ECG COMPLETE ECG COMPLETE ECG Routine Dizziness 04/15/2024 8:46 AM EDT [facility] End: 12-02-2022 HOME SLEEP APNEA TEST (HSAT) HOME SLEEP APNEA TEST (HSAT) Procedures Routine Fatigue, unspecified type 1 Occurrences starting 12/02/2021 until 12/02/2022 [facility] Work Phone: Comment on above: 1 Occurrences starti ng 12/02/2021 until 12/02/2022 End: 02-08-2025 HOME SLEEP APNEA TEST (HSAT) HOME SLEEP APNEA TEST (HSAT) Procedures Routine Snores Hypersomnolence Witnessed episode of apnea 1 Occurrences starting 02/09/2024 until 02/08/2025 [facility] Comment on above: 1 Occurrences starti ng 02/09/2024 until 02/08/2025 [facility] Immunizations Immunization Date Immunization Notes Care Provider Bo james 05-01-2024 influenza virus vaccine, unspecified formulation Carlton Katz MD Work Phone: [facility] 05-24-2023 influenza virus vaccine, unspecified formulation Carlton Katz MD Work Phone: [facility] 01-02-2021 tetanus toxoid, redu eulogio diphtheria toxoid, and acellular pertussis vaccine, adsorbed Maritza Tannhof MACHINE I TRIMMER.ASSOCIATE PUBLISHER Work Phone: [facility] 05-08-2020 influenza, seasonal, injectable Maritza Tannhof MACHINE I TRIMMER.ASSOCIATE PUBLISHER Work Phone: [facility] 12-11-2009 tetanus toxoid, redu eulogio diphtheria toxoid, and acellular pertussis vaccine, adsorbed Maritza Tannhof MACHINE I TRIMMER.ASSOCIATE PUBLISHER Work Phone: [facility] Work Phone: Payers Date Payer Category Payer Self-pay 2025 Unknown 0 2024 Private Health Insurance [employer] PPO Member Subscriber Plan / Payer (Effective 2024-Present) Name: Dylan Barron Relation to Subscriber: Self Name: Dylan Barron Payer ID: Not on file Type: PPO Address: [place] [id number] 2024 Unknown [id number] 2019 [facility] PPO [id number] 2019 Unknown ERON GARDUNO PPO [id number] 2019-Present [phone] [address] [place] [address] PPO [id number] 2019 Unknown ERON FINE SS PPO [id number] 2019-Present [phone] [address] [place] [address] PPO [id number] 2019 Unknown [id number] Unknown [id number] Social History Date Type Detail Facility Start: 11-14-2014 End: 06-07-2022 Tobacco smoking status NHIS Never smoked tobacco [facility] Work Phone: Start: 11-14-2014 End: 06-07-2022 Tobacco use and exposure Smokeless tobacco non-user [facility] Work Phone: Start: 12-02-2021 End: 02-08-2025 Alcohol intake Current drinker of alcohol (finding) [facility] Start: 12-01-2021 End: 01-31-2023 History SDOH Alcohol Frequency 2 [facility] Start: 12-01-2021 End: 01-31-2023 History SDOH Alcohol Std Drinks 1 [facility] Start: 12-09-2018 History SDOH Alcohol Comment very rare [facility] Start: 12-01-2021 End: 01-31-2023 History SDOH Social Connections Phone 5 [facility] Start: 12-01-2021 End: 01-31-2023 History SDOH Social Connections Alevism 3 [facility] Start: 12-01-2021 End: 01-31-2023 History SDOH Financial 4 [facility] Start: 1985 Sex Assigned At Not on file [facility] Start: 11-22-2021 End: 06-30-2022 Exposure to SARS-CoV-2 (event) Not sure [facility] Start: 01-31-2023 History SDOH Alcohol Std Drinks 0 [facility] Start: 01-30-2023 End: 04-15-2024 History of Social function [facility] Start: 01-30-2023 End: 04-15-2024 Social connection and isolation panel [facility] Start: 11-14-2014 Attends [employer] Not on fi le [facility] Do you belong to any clubs or organizations such as evangelical groups, unions, fraternal or athletic groups, or school groups? No [facility] Are you now , , , , never or living with a partner? [facility] How often to you hav e a drink containing alcohol? Monthly or less [facility] How often do you hav e 6 or more drinks on 1 occasion? Never [facility] How hard is it for y ou to pay for the very basics like food, housing, medical care, and heating Not very hard [facility] Do you feel stress - tense, restless, nervous, or anxious, or unable to sleep at night because your mind is troubled all the time - these days [OSQ] Only a little [facility] (I/We) worried wheth er (my/our) food would run out before (I/we) got money to buy more. Never true [facility] Do you feel stress - tense, restless, nervous, or anxious, or unable to sleep at night because your mind is troubled all the time - these days [OSQ] Not at all [facility] How many standard dr inks containing alcohol do you have on a typical day? 1 or 2 [facility] Do you feel stress - tense, restless, nervous, or anxious, or unable to sleep at night because your mind is troubled all the time - these days [OSQ] To some extent [facility] Goals Date Patient Goal Desired Activity /State Personal health goal Functional Status Date Assessment Result Facility 11-14-2014 Are you deaf, or do you have serious difficulty hearing No 11/14/2014 2:52 PM EDT Yesenia Davis RN No [facility] Work Phone: 11-14-2014 Are you blind, or do you have serious difficulty seeing, even when wearing glasses No 11/14/2014 2:52 PM EDT Yesenia Davis RN No [facility] 11-14-2014 Do you have serious difficulty walking or climbing stairs No 11/14/2014 2:52 PM EDT Yesenia Davis RN No [facility] 11-14-2014 Do you have difficul ty dressing or bathing No 11/14/2014 2:52 PM EDT Yesenia Davis RN No [facility] 11-14-2014 Because of a physica l, mental, or emotional condition, do you have difficulty doing errands alone such as visiting a physician's office or shopping No 11/14/2014 2:52 PM EDT Yesenia Davis RN No [facility] Mental Status Date Assessment Result Facility 11-14-2014 Because of a physica l, mental, or emotional condition, do you have serious difficulty concentrating, remembering, or making decisions No 11/14/2014 2:52 PM EDT Yesenia Davis RN No [facility] Clinical Notes 12-02-2021 to 03-21-2025 Telephone Encounter - Ghazala Jackson MA - 03/21/2025 8:37 AM EDTTelephone Encounter - Ghazala Jackson MA - 03/21/2025 8:37 AM EDTTelephone Encounter - Connie Cerna RN - 03/20/2025 8:27 AM EDT Note Date & Type Note Facility 03-21-2025 Telephone encounter Note Pt sent [employer] message notifying him new order has been faxed to [facility] and he needs to call to setup. Phone number given to schedule. Ghazala Jackson MA [facility] 03-21-2025 Miscellaneous Notes Pt sent [employer] message notifying him new order has been faxed to [facility] and he needs to call to setup. Phone number given to schedule. Ghazala Jackson MA Please let patient know his CT calcium score has been ordered and fax to [facility] so patient can schedule. [facility] calls to let provider know that d/t patient's age he does not qualify for the bibiana for the Calcium Score Test. Patient will have to pay out of pocket $50 and they will need a new order with diagnosis code and written diagnosis as well as for order not to say bibiana. Call placed to patient to verify that he wants to move forward with paying the cost of $50. Patient verbalizes that he would still want to have completed. Connie Cerna RN documented in this encounter [facility] 03-20-2025 Telephone encounter Note Please let patient know his CT calcium score has been ordered and fax to [facility] so patient can schedule. [facility] 03-20-[address] [facility] calls to let provider know that d/t patient's age he does not qualify for the bibiana for the Calcium Score Test. Patient will have to pay out of pocket $50 and they will need a new order with diagnosis code and written diagnosis as well as for order not to say bibiana. Call placed to patient to verify that he wants to move forward with paying the cost of $50. Patient verbalizes that he would still want to have completed. Connie Cerna RN [facility] 03-03-2025 Telephone encounter Note Please see pt's reply. Magda Razo LPN [facility] 03-03-2025 Miscellaneous Notes Please see pt's reply. Magda Razo LPN Please see pt's message. Magda Razo LPN documented in this encounter [facility] 03-02-2025 Telephone encounter Note Please see pt's message. Magda Razo LPN [facility] 02-08-2025 Instructions Carlton Katz MD - 02/08/2025 8:42 AM EDT Check lipids on or after 08/11/2025. Please get labs and urine test done on or after 01/26/2025 prior to your next visit. We discussed your anxiety and fatigue: - You will transition from sertraline (Zoloft) to Wellbutrin to address your concerns about fatigue and weight gain. - Starting tomorrow, take half a tablet of sertraline (25 mg) daily for 7 to 10 days. - Begin Wellbutrin 100 mg once daily at the same time as the reduced sertraline dose. - After 2 weeks on Wellbutrin 100 mg once daily, increase the dose to 100 mg twice daily. - You should notice some improvement within the first week of starting Wellbutrin, with maximum benefit occurring up to 2 weeks after increasing to twice daily dosing. - Please send me a [employer] message 2 weeks after starting the twice-daily Wellbutrin to update me on how you are feeling. - Check your supply of sertraline at home to ensure you have enough for the transition period. If you do not, please message me, and I can send a short refill. - Continue monitoring your weight and try to avoid additional snacking, as this can contribute to weight gain. We discussed your cholesterol: - Your LDL (bad cholesterol) is elevated at 170 (previously 131-117). - To help lower your cholesterol, reduce your intake of fats and cholesterol in your diet. - Increase your physical activity, as this can also help raise your HDL (good cholesterol), which is currently 39 (goal is 40 or higher). - We will recheck your cholesterol with a lipid panel in 6 months, after August 11. Please schedule this lab work about a week before your next visit. We discussed your family history of heart disease: - I will send an order to [facility] for a CT calcium score to assess your heart health. They will contact you to schedule this test. We reviewed your recent lab results: - Your blood work, including white blood cell count, hemoglobin, platelets, kidney function, liver function, electrolytes, and thyroid function, was normal. - Your A1c for diabetes screening was 5.2, which is within the normal range. - Your triglycerides were 136, which is below the target of 150. We discussed your tetanus vaccination: - Your tetanus shot is up to date. Follow-Up: - Complete your CT calcium score as scheduled by [facility]. - Schedule your lipid panel for 6 months from now, after August 11. - I will see you in 1 year for your next annual physical. If you have any questions or concerns, please send me a message through [employer]. documented in this encounter [facility] 02-08-2025 Note HNO ID: [id number] Author: CARLTON KATZ MD Service: ? Author Type: Physician Type: Progress Notes Filed: 02/08/2025 10:02 Note Text: Chief Complaint Patient presents with: Well Adult HPI Dylan Barron is a 39 year old male who presents here today for a Physical. Patient with Hx of Headache's, mixed Hyperlipidemia, HTN, CE as well as those reviewed and addressed below in ROS. Following with Cardiology. Following with Neuro for CE. Discuss Zoloft, notes weight gain with medication. Dylan reports that his current sertraline 50 mg regimen has effectively managed his anxiety and reduced the frequency of headaches. However, he has experienced weight gain and persistent fatigue since initiating the medication. He currently takes sertraline in the morning. He denies any recent fevers, frequent headaches, sudden changes in hearing or vision, issues with his nose or throat, lumps or swelling in his neck, wheezing, hemoptysis, chest pain, palpitations, leg swelling, nausea, emesis, diarrhea, heartburn, dysuria, hematuria, unusual muscle or joint aches, skin lesions, rashes, sores, easy bruising or bleeding, changes in heat or cold tolerance, increased thirst, syncope, seizures, or tremors. He has a family history of heart disease, with his brother being affected. Dylan underwent a stress test and echocardiogram last year, both of which were unremarkable. He inquires about the potential benefits of a calcium CT scan for further evaluation. Dylan has not had any surgeries in the past year and reports no new health issues among his blood relatives. He has not yet completed a skin check with Derm as previously recommended. Past medical history, appointments, medications, allergies reviewed. Previous Medical History PAST MEDICAL HISTORY Diagnosis Date Chronic nonintractable headache 12/09/2018 may be migraines. Dizziness 12/09/2018 Seeing Neurology, Dr. Obrien in [facility] Elevated blood pressure reading in office with diagnosis of hypertension Family history of early CAD 12/09/2018 Brother at 36 H/O echocardiogram 05/31/2024 EF 50?5%, no significant valvular abnormalities History of stress test 05/31/2024 EF 59%, no ischemia or infarction Mixed hyperlipidemia CE (obstructive sleep apnea) 03/01/2024 Stress reaction 02/09/2024 Previous Surgical History PAST SURGICAL HISTORY Procedure Laterality Date NONE Family History FAMILY HISTORY Problem Relation Age of Onset Hyperlipidemia Mother Diabetes Father type 2 Heart Attack Brother 36 09/2018 Heart Maternal Grandmother No Known Problems Maternal Grandfather Diabetes Paternal Grandfather Prostate Cancer Maternal Uncle ? Heart Maternal cousin Alzheimer's Disease No Family History Colon Cancer No Family History Breast Cancer No Family History Ovarian cancer No Family History Uterine Cancer No Family History Hypertension No Family History Kidney Disease No Family History Seizures No Family History Stroke No Family History Thyroid No Family History Patient Allergies ALLERGIES Allergen Reactions Doxycycline GI Upset Stomach pain Current Medications Current Outpatient Medications on File Prior to Visit Medication Sig sertraline (ZOLOFT) 50 mg tablet Take 1 tablet by mouth once daily. CPAP/BIPAP/OTHER Type .CPAPSettings into a note to see current settings/supplies/DME information. melatonin 10 mg tab Take by mouth at bedtime as needed for insomnia. CPAP Initiate Auto PAP @ 5-20 cm of water with humidification. Mask (per patient preference) optional chin strap (if indicated) , filters, tubing, humidifier and lifetime supplies. MULTIVITAMIN ORAL Take by mouth. Take one tablet daily ascorbic acid, vitamin C, (VITAMIN C) 500 mg tablet Take 500 mg by mouth once daily. Take 2 tablets daily No current facility-administered medications on file prior to visit. Social History Social History Tobacco Use Smoking status: Never Smokeless tobacco: Never Substance Use Topics Alcohol use: Yes Comment: very rare Drug use: Never Review of Symptoms REVIEW OF SYSTEMS GENERAL: No weight loss, malaise or fevers HEENT: Negative for frequent or significant headaches, No changes in hearing or vision, no nose bleeds or other nasal problems NECK: Negative for lumps, goiter, pain and significant neck swelling RESPIRATORY: Negative for cough, hemoptysis, wheezing, COPD, dyspnea or shortness of breath CARDIOVASCULAR: Negative for chest pain, leg swelling, hypertension, CHF or palpitations GI: No nausea, vomiting, or diarrhea and No heartburn or reflux symptoms : No history of dysuria, frequency or blood MUSCULOSKELETAL: Negative for joint pain or swelling, back pain or muscle pain SKIN: Negative for lesions, rash, and itching PSYCH: Negative for sleep disturbance, mood disorder and recent psychosocial stressors. Just has weight gain with the sertraline. HEMATOLOGY (more content not included)... [facility] 02-08-2025 History of Presen t illness Narrative Chief Complaint Patient presents with: Well Adult HPI Dylan Barron is a 39 year old male who presents here today for a Physical. Patient with Hx of Headache's, mixed Hyperlipidemia, HTN, CE as well as those reviewed and addressed below in ROS. Following with Cardiology. Following with Neuro for CE. Discuss Zoloft, notes weight gain with medication. Dylan reports that his current sertraline 50 mg regimen has effectively managed his anxiety and reduced the frequency of headaches. However, he has experienced weight gain and persistent fatigue since initiating the medication. He currently takes sertraline in the morning. He denies any recent fevers, frequent headaches, sudden changes in hearing or vision, issues with his nose or throat, lumps or swelling in his neck, wheezing, hemoptysis, chest pain, palpitations, leg swelling, nausea, emesis, diarrhea, heartburn, dysuria, hematuria, unusual muscle or joint aches, skin lesions, rashes, sores, easy bruising or bleeding, changes in heat or cold tolerance, increased thirst, syncope, seizures, or tremors. He has a family history of heart disease, with his brother being affected. Dylan underwent a stress test and echocardiogram last year, both of which were unremarkable. He inquires about the potential benefits of a calcium CT scan for further evaluation. Dylan has not had any surgeries in the past year and reports no new health issues among his blood relatives. He has not yet completed a skin check with Derm as previously recommended. Past medical history, appointments, medications, allergies reviewed. Previous Medical History PAST MEDICAL HISTORY Diagnosis Date Chronic nonintractable headache 12/09/2018 may be migraines. Dizziness 12/09/2018 Seeing Neurology, Dr. Obrien in [facility] Elevated blood pressure reading in office with diagnosis of hypertension Family history of early CAD 12/09/2018 Brother at 36 H/O echocardiogram 05/31/2024 EF 50 5%, no significant valvular abnormalities History of stress test 05/31/2024 EF 59%, no ischemia or infarction Mixed hyperlipidemia CE (obstructive sleep apnea) 03/01/2024 Stress reaction 02/09/2024 Previous Surgical History PAST SURGICAL HISTORY Procedure Laterality Date NONE Family History FAMILY HISTORY Problem Relation Age of Onset Hyperlipidemia Mother Diabetes Father type 2 Heart Attack Brother 36 09/2018 Heart Maternal Grandmother No Known Problems Maternal Grandfather Diabetes Paternal Grandfather Prostate Cancer Maternal Uncle ? Heart Maternal cousin Alzheimer's Disease No Family History Colon Cancer No Family History Breast Cancer No Family History Ovarian cancer No Family History Uterine Cancer No Family History Hypertension No Family History Kidney Disease No Family History Seizures No Family History Stroke No Family History Thyroid No Family History Patient Allergies ALLERGIES Allergen Reactions Doxycycline GI Upset Stomach pain Current Medications Current Outpatient Medications on File Prior to Visit Medication Sig sertraline (ZOLOFT) 50 mg tablet Take 1 tablet by mouth once daily. CPAP/BIPAP/OTHER Type .CPAPSettings into a note to see current settings/supplies/DME information. melatonin 10 mg tab Take by mouth at bedtime as needed for insomnia. CPAP Initiate Auto PAP @ 5-20 cm of water with humidification. Mask (per patient preference) optional chin strap (if indicated) , filters, tubing, humidifier and lifetime supplies. MULTIVITAMIN ORAL Take by mouth. Take one tablet daily ascorbic acid, vitamin C, (VITAMIN C) 500 mg tablet Take 500 mg by mouth once daily. Take 2 tablets daily No current facility-administered medications on file prior to visit. Social History Social History Tobacco Use Smoking status: Never Smokeless tobacco: Never Substance Use Topics Alcohol use: Yes Comment: very rare Drug use: Never Review of Symptoms REVIEW OF SYSTEMS GENERAL: No weight loss, malaise or fevers HEENT: Negative for frequent or significant headaches, No changes in hearing or vision, no nose bleeds or other nasal problems NECK: Negative for lumps, goiter, pain and significant neck swelling RESPIRATORY: Negative for cough, hemoptysis, wheezing, COPD, dyspnea or shortness of breath CARDIOVASCULAR: Negative for chest pain, leg swelling, hypertension, CHF or palpitations GI: No nausea, vomiting, or diarrhea and No heartburn or reflux symptoms : No history of dysuria, frequency or blood MUSCULOSKELETAL: Negative for joint pain or swelling, back pain or muscle pain SKIN: Negative for lesions, rash, and itching PSYCH: Negative for sleep disturbance, mood disorder and recent psychosocial stressors. Just has weight gain with the sertraline. HEMATOLOGY/LYMPHOLOGY: Negative for prolonged bleeding, bruising easily or swollen nodes ENDOCRINE: Negative for cold or heat intolerance, polyuria, polydipsia and goiter NEURO: No history of headaches, syncope, paralysis, seizures or tremors SEE HPI EXAM: BP 120/80 Pulse 68 Resp 16 Ht 177.8 cm (5' 10) Wt 83.8 kg (184 lb 12.8 oz) BMI 26.52 kg/m BP 120/80 Pulse 68 Resp 16 Ht 177.8 cm (5' 10) Wt 83.8 kg (184 lb 12.8 oz) BMI 26.52 kg/m Last 6 Encounter Wt Readings: Date: Wt: 02/08/2025 83.8 kg (184 lb 12.8 oz) 04/15/2024 74.8 kg (165 lb) 02/09/2024 72.6 kg (160 lb) 12/10/2023 74.3 kg (163 lb 12.8 oz) 09/10/2023 75.3 kg (166 lb) 02/03/2023 71.7 kg (158 lb) Last 5 Encounter Wt Readings: Date: Wt: 02/08/2025 83.8 kg (184 lb 12.8 oz) 04/15/2024 74.8 kg (165 lb) 02/09/2024 72.6 kg (160 lb) 12/10/2023 74.3 kg (163 lb 12.8 oz) 09/10/2023 75.3 kg (166 lb) General Appearance: Well appearing, alert, in no acute distress, well-hydrated, well nourished.. Skin: Skin color, texture, turgor normal, no suspicious rashes or lesions. Head: Normocephalic, no masses, lesions, tenderness or abnormalities. Eyes: Anicteric sclera. Pupils are equally round and reactive to light. Extraocular movements are intact. . Ears: External ears,, TM's normal, canals clear. Nose/Sinuses: Nares normal, septum midline, mucosa normal, no drainage or sinus tenderness. Oropharynx: Lips, mucosa, and tongue normal, teeth and gums normal, oropharynx normal. Neck: Supple, no adenopathy; thyroid symmetric, normal size, no bruits. Lungs: Lungs clear to auscultation. No wheezing, rhonchi, rales.. Heart: RRR without murmur, gallop, or rubs. No ectopy. Abdomen: Normal abdominal exam, Abdomen soft, non-tender. Bowel sounds normal. No masses, organomegaly. Extremities: No deformities, edema, skin discoloration, clubbing or cyanosis. Good capillary refill. . Musculoskeletal: Spine range of motion normal. Muscular strength intact, No joint swelling, deformity, or tenderness. Peripheral Pulses: Normal. Neurologic: Gait normal. Reflexes normal and symmetric. Sensation to light touch and crainal nerves 2-12 intact.. Genitalia: Normal, Penis normal. No urethral discharge. Scrotum normal to palpation. No hernia.. Health Maintenance List Influenza Vaccine(1) due on 04/10/2025 Annual PCP Team Chronic Disease Visit due on 02/08/2026 Depression Screening due on 02/08/2026 Lipid Screening due on 01/27/2030 DTaP,Tdap,Td Vaccine(9 - Td or Tdap) due on 01/02/2031 Hepatitis B Vaccine Discontinued Hepatitis C Screening Discontinued HIV Screening Discontinued Covid-19 Vaccine Discontinued Data reviewed Latest Ref Rng 12/02/2021 01/31/2022 02/03/2023 02/09/2024 01/27/2025 WBC 3.70 - 11.00 k/uL 7.16 4.17 RBC 4.20 - 6.00 m/uL 5.13 5.18 Hemoglobin 13.0 - 17.0 g/dL 15.3 16.1 Hematocrit 39.0 - 51.0 % 44.8 46.5 MCV 80.0 - 100.0 fL 87.3 89.8 MCH 26.0 - 34.0 pg 29.8 31.1 MCHC 30.5 - 36.0 g/dL 34.2 34.6 RDW-CV 11.5 - 15.0 % 11.4 (L) 11.3 (L) Platelet Count 150 - 400 k/uL 200 198 MPV 9.0 - 12.7 fL 10.9 11.6 Neut% % 66.6 52.7 Abs Neut (ANC) 1.45 - 7.50 k/uL 4.77 2.20 Lymph% % 24.0 35.3 Abs Lymph 1.00 - 4.00 k/uL 1.72 1.47 Gilchrist% % 8.0 10.1 Abs Gilchrist <0.87 k/uL 0.57 0.42 Eosin% % 0.7 1.2 Abs Eosin <0.46 k/uL 0.05 0.05 Baso% % 0.4 0.5 Abs Baso <0.11 k/uL 0.03 <0.03 Immature Gran % % 0.3 0.2 IMMATURE GRANS (ABS) <0.10 k/uL <0.03 <0.03 NRBC /100 WBC 0.0 0.0 Absolute nRBC <0.01 k/uL <0.01 <0.01 DTYPE Auto Auto Color Yellow Yellow Clarity Clear Clear Glucose, Urine Negative Negative Bilirubin, Urine Negative Negative Ketones, Urine Negative Negative Specific [place], Ur 1.005 - 1.030 1.016 Hemoglobin/Blood,Ur Negative Negative pH, Urine <8.5 7.5 Protein, Urine Negative Negative Urobilinogen 0.2-1.0 EU/dL 0.2 EU/dL Nitrites Negative Negative Leukest Negative Negative WBC, Urine 0-5 /HPF 0-5 /HPF RBC, Urine 0-2 /HPF 0-2 /HPF Bacteria Negative /HPF Negative Epithelial Cells /HPF None Seen Hyaline Cast 0 /LPF 0 /LPF Protein, Total 6.3 - 8.0 g/dL 7.0 7.2 Albumin 3.9 - 4.9 g/dL 4.1 4.6 Calcium 8.5 - 10.2 mg/dL 9.3 9.9 Bilirubin, Total 0.2 - 1.3 mg/dL 0.7 0.7 Alkaline Phosphatase 38 - 113 U/L 81 63 AST 14 - 40 U/L 28 31 ALT 10 - 54 U/L 28 39 Glucose 74 - 99 mg/dL 84 96 BUN 9 - 24 mg/dL 16 11 Creatinine 0.73 - 1.22 mg/dL 0.82 0.94 Sodium 136 - 144 mmol/L 138 140 Potassium 3.7 - 5.1 mmol/L 3.9 4.3 Chloride 98 - 107 mmol/L 102 102 CO2 22 - 30 mmol/L 28 27 Anion Gap 8 - 15 mmol/L 8 (L) 11 eGFR >=60 mL/min/1.73m 117 106 Total Cholesterol, Nonfasting <200 mg/dL 202 (H) 181 198 243 (H) Triglycerides, Nonfasting <150 mg/dL 216 (H) 129 90 136 HDL Cholesterol, Nonfasting >39 mg/dL 42 47 49 39 (L) LDL Cholesterol Calculated, Nonfasting <100 mg/dL 117 (H) 108 (H) 131 (H) 179 (H) Non HDL Cholesterol, Nonfasting <130 mg/dL 160 (H) 134 (H) 149 (H) 204 (H) VLDL Cholesterol, Nonfasting <30 mg/dL 43 (H) 26 18 27 Total Chol/HDL Ratio, Nonfasting <5.10 mg/dL 4.81 3.85 4.04 6.23 (H) LDL/HDL Ratio, Nonfasting <2.54 mg/dL 2.79 (H) 2.30 2.67 (H) 4.59 (H) Hemoglobin A1C 4.3 - 5.6 % 5.6 5.2 5.1 5.2 Estimated Average Glucose mg/dL 114 103 100 103 TSH 0.270 - 4.200 mIU/L 2.450 1.940 Vitamin B12 232-1,245 pg/mL 784 Assessment and Plan 1. Well adult exam (Z00.00) Comprehensive physical examination performed. No new health issues reported in family history. Recent lab results reviewed, including CBC, CMP, A1c, thyroid function, and lipid panel. - Continue routine follow-up. - Repeat lipid panel in 6 months. - Scheduled next annual physical exam in one year. 2. Mixed hyperlipidemia (E78.2) Recent lipid panel shows triglycerides at 136 mg/dL, HDL at 39 mg/dL, and LDL at 170 mg/dL, which is elevated compared to previous readings of 131, 108, and 117 mg/dL. - Advised patient to monitor dietary intake, specifically reducing fats and cholesterol. - Increase physical activity to improve HDL levels. - Repeat lipid panel in 6 months to reassess. 3. Chronic nonintractable headache, unspecified headache type (R51.9) Headaches have decreased since starting sertraline. 4. Stress reaction (F43.0) Currently managed with sertraline 50 mg daily, which has been effective in reducing anxiety but causing fatigue and weight gain. - Initiate Wellbutrin 100 mg daily for 2 weeks, then increase to twice daily. - Taper sertraline to 25 mg daily for 7-10 days while starting Wellbutrin. - Monitor for effectiveness and side effects; patient to send [employer] message in 2 weeks after starting Wellbutrin twice daily. - on CPAP managed per sleep Med 6. Family history of early CAD (Z82.49) Brother with history of heart disease. Recent stress test and echocardiogram were normal. - Ordered CT calcium score to be performed at [facility] for further assessment. - Continue cardiology follow-up every 3 years. 7. Screening for depression (Z13.31) Currently managed with sertraline, considering switch to Wellbutrin due to side effects. 8. Medication management (Z79.899) Sertraline 50 mg daily causing fatigue and weight gain. - Initiate Wellbutrin 100 mg daily for 2 weeks, then increase to twice daily. - Taper sertraline to 25 mg daily for 7-10 days while starting Wellbutrin. - Monitor for effectiveness and side effects; patient to send [employer] message in 2 weeks after starting Wellbutrin twice daily. 9. Encounter for screening for diabetes mellitus (Z13.1) Recent A1c was 5.2%, indicating normal glucose metabolism. Check lipids on or after 08/11/2025. F/u in a year for WAE sooner if needed. Check CMP, lipid, UA, A1c, TH and CBC prior Carlton Katz MD Recording using [employer] software for draft documentation of the visit was discussed with the patient/authorized regional sales representative; all questions welcomed and answered. Patient/authorized regional sales representative agreed to proceed SENSITIVE EXAMINATION CONSENT: The sensitive examination was discussed with the Patient or Patient's Authorized Pharmacy Order Entry Technician. As applicable, any other physician, advance practice provider, medical student, or other health professional student that will be observing or involved in the sensitive examination for educational or training purposes was discussed with the Patient or Authorized Pharmacy Order Entry Technician. The Patient or Authorized Pharmacy Order Entry Technician has agreed to proceed with the sensitive examination. documented in this encounter [facility] 12-26-2024 Telephone encounter Note Pt notified via . Magda Razo LPN [facility] 12-26-2024 Miscellaneous Notes Pt notified via . Magda Razo LPN Nothing else that I would add at this time. Chandrika Yoo PA-C Please see pt's update and advise if any additional labs are needed prior to appointment 02/08/25. Magda Razo LPN documented in this encounter [facility] 12-26-2024 Telephone encounter Note Nothing else that I would add at this time. Chandrika Yoo PA-C [facility] Work Phone: 12-26-2024 Telephone encounter Note Please see pt's update and advise if any additional labs are needed prior to appointment 02/08/25. Magda Razo LPN [facility] 11-16-2024 Telephone encounter Note The following approved medication requests have been transmitted electronically. Requested Prescriptions Signed Prescriptions Disp Refills sertraline (ZOLOFT) 50 mg tablet 90 tablet 0 Sig: Take 1 tablet by mouth once daily. Carlton Katz MD [facility] 11-16-2024 Miscellaneous Notes The following approved medication requests have been transmitted electronically. Requested Prescriptions Signed Prescriptions Disp Refills sertraline (ZOLOFT) 50 mg tablet 90 tablet 0 Sig: Take 1 tablet by mouth once daily. Carlton Katz MD Patient has been identified by name and date of : yes Patient phones for refill(s): Requested Prescriptions Pending Prescriptions Disp Refills sertraline (ZOLOFT) 50 mg tablet 30 tablet 5 Sig: Take 1 tablet by mouth once daily. Date of last office visit in primary care: 02/09/2024 Date of next office visit in primary care: 02/08/2025 Please advise. Thank you. Araceli Hester MA. documented in this encounter [facility] 11-16-2024 Telephone encounter Note Patient has been identified by name and date of : yes Patient phones for refill(s): Requested Prescriptions Pending Prescriptions Disp Refills sertraline (ZOLOFT) 50 mg tablet 30 tablet 5 Sig: Take 1 tablet by mouth once daily. Date of last office visit in primary care: 02/09/2024 Date of next office visit in primary care: 02/08/2025 Please advise. Thank you. Araceli Hester MA. [facility] 08-15-2024 Telephone encounter Note Patient Comment: I am down to four pills and based on the bottom it appears there are no refills. Thank you Prescription Refill Information The patient has been identified by name and date of : Yes Caregiver verified no other encounters exist for this prescription request: Yes Caregiver confirmed with patient/requestor that no other refills are due, in the near future, with this provider at this time: Yes The last office visit in the department: 02/09/24 Does the patient have a future office visit with this provider/department: Yes Requested Prescriptions Pending Prescriptions Disp Refills sertraline (ZOLOFT) 50 mg tablet 30 tablet 5 Si/2 a tablet by mouth once a day for 14 days then go to one tablet daily Magda Razo LPN August 15, 2024 11:55 AM [facility] 08-15-2024 Miscellaneous Notes Patient Comment: I am down to four pills and based on the bottom it appears there are no refills. Thank you Prescription Refill Information The patient has been identified by name and date of : Yes Caregiver verified no other encounters exist for this prescription request: Yes Caregiver confirmed with patient/requestor that no other refills are due, in the near future, with this provider at this time: Yes The last office visit in the department: 02/09/24 Does the patient have a future office visit with this provider/department: Yes Requested Prescriptions Pending Prescriptions Disp Refills sertraline (ZOLOFT) 50 mg tablet 30 tablet 5 Si/2 a tablet by mouth once a day for 14 days then go to one tablet daily Magda Razo LPN August 15, 2024 11:55 AM documented in this encounter [facility] 06-16-2024 Telephone encounter Note [employer] calling to state patient's CPAP device has been approved through [employer]. Valid 06/15/2024 through 09/12/2024. They will notify patient as well. Cha Munoz RN [facility] 06-16-2024 Miscellaneous Notes [employer] calling to state patient's CPAP device has been approved through [employer]. Valid 06/15/2024 through 09/12/2024. They will notify patient as well. Cha Munoz RN documented in this encounter [facility] 06-01-2024 Telephone encounter Note Pt called and notified per adeline Make sure it is a little bit sooner than 3 years so he is not a new patient at the time. Pt agreeable [facility] 06-01-2024 Miscellaneous Notes Pt called and notified per adeline Make sure it is a little bit sooner than 3 years so he is not a new patient at the time. Pt agreeable Make sure it is a little bit sooner than 3 years so he is not a new patient at the time. Pt called and notified per adeline stress test looks good, EF 59% with no ischemia or infarction. echocardiogram looks okay as well, EF 50 5%, no significant valvular abnormalities. Pt agreeable Pt states when he seen you he thinks you recommended follow up every 3 years and he wants to make sure that is correct? Let the patient know, stress test looks good, EF 59% with no ischemia or infarction. echocardiogram looks okay as well, EF 50 5%, no significant valvular abnormalities. documented in this encounter [facility] 06-01-2024 Telephone encounter Note Make sure it is a little bit sooner than 3 years so he is not a new patient at the time. [facility] 06-01-2024 Telephone encounter Note Pt called and notified per adeline stress test looks good, EF 59% with no ischemia or infarction. echocardiogram looks okay as well, EF 50 5%, no significant valvular abnormalities. Pt agreeable Pt states when he seen you he thinks you recommended follow up every 3 years and he wants to make sure that is correct? [facility] 06-01-2024 Telephone encounter Note Let the patient know, stress test looks good, EF 59% with no ischemia or infarction. echocardiogram looks okay as well, EF 50 5%, no significant valvular abnormalities. [facility] 05-31-2024 Note HNO ID: [id number] Author: ELIGIO SHEEHAN RT(R) Service: ? Author Type: Technologist Type: Progress Notes Filed: 05/31/2024 09:21 Note Text: RADIOLOGY SERVICE PROGRESS NOTE SERVICE DATE: 05/31/2024 SERVICE TIME: 9:20 AM PATIENT IDENTITY VERIFICATION COMPLETED USING TWO (2) STANDARD IDENTIFIERS: Name and Date of confirmed by patient verbally FALL SCREENING: Has the patient had 2 falls in the last year or 1 fall with injury or currently using an Ambulatory Assistive Device (Walker, Cane, Wheelchair, Crutches, etc.)? No PATIENT GENDER DATA: .male : No ALLERGIES: NA MEDICATIONS REVIEWED: Not applicable PATIENT RELEVANT IMPLANT DATA REVIEWED: Not Applicable PATIENT PRESENTS WITH AN IMPLANTABLE OR ATTACHED BELT SPLICER: No CREATININE: Creatinine Date Value Ref Range Status 12/02/2021 0.82 0.73 - 1.22 mg/dL Final Estimated Glomerular Filtration Rate Date Value Ref Range Status 12/02/2021 117 >=60 mL/min/1.73m? Final Comment: Estimated Glomerular Filtration Rate (eGFR) is calculated using the 2020 CKD-EPI creatinine equation. This equation utilizes serum creatinine, sex, and age as parameters. The creatinine assay has traceable calibration to isotope dilution-mass spectrometry. Refer to KDIGO guidelines for clinical interpretation. In patients with unstable renal function, e.g. those with acute kidney injury, the eGFR may not accurately reflect actual GFR. P.O.C.T. RESULTS: N/A May 31, [address] PERFORMED: No IV SITE: Ambulatory: A peripheral IV was started in the Left antecubital site with a Angio cath: 22 gauge. POST EXAM PIV STATUS: Discontinued PROCEDURE TYPE: CO Stress: 10.7 mCi [id number] was administered IV for Rest Imaging at 0755 by JRC2. 30.7 mCi [id number] was administered IV for Stress Imaging at 0918 by TSD. ADMINISTRATION TIME: 917 PATIENT DISCHARGED TO: Ambulatory patient, left [place] department area. A Diagnostic radioactive procedure has taken place, with no further precautions necessary other than routine body substance precautions. More information regarding radiation safety can be found using this link: [email or web address] SIGNATURE: RT Norma(R) PATIENT NAME: Dylan Barron DATE: May 31, 2024 TIME: 9:20 AM PAGER/CONTACT #: [facility] 05-20-2024 Instructions Mena Miranda APRN.ASSOCIATE PUBLISHER - 05/20/2024 11:45 AM EDT Images from the original note were not included. Patient Instructions: Dylan Barron is a 38 year old year old male with a PMH of Headaches who presents via Virtual Visit for Dx: CE (obstructive sleep apnea) [G47.33 (ICD-10-CM)] Patient was diagnosed with CE in February 2024. A Home Sleep Test (HST) was completed on 02/24/24. He was prescribed PAP therapy. [employer] is DME. Nasal Pillows. Prior to PAP therapy, reports he was having a cough and chest discomfort. After PAP therapy, these complaints have improved. Here today to do his face to face exam and check to see if he has met his compliancy on his PAP device. Discussed Home Sleep Test (HST) performed on 02/24/24 revealed at least mild CE (AHI of 7.8, Off-Supine AHI 2.1, Supine AHI 8.8) that was associated with a minimum oxygen saturation of 88%. The results of this study may represent an underestimation of the degree of obstructive sleep apnea, especially hypopneas, because of the known limitations of HSAT, such as inability to record arousals because EEG is not recorded. Discussed the diagnosis and physiology of obstructive sleep apnea. Discussed the importance of treating CE, with particular attention given to the comorbidities associated with untreated CE, which include but are not limited to hypertension, heart disease, stroke, obesity and daytime sleepiness that can affect normal daytime functioning. Discussed treatment of mild sleep apnea can include weight loss, positional therapy, treatment of allergies, oral appliance therapy or ENT evaluation of any airway abnormalities. PAP therapy may be considered in patients with documented symptoms of daytime sleepiness, impaired cognition, mood disorder, insomnia, or documented hypertension, ischemic heart disease, or history of stroke. Doing well with PAP therapy. Denies mask or pressure intolerance. However, reports he may wake up later in the night with pressure really high. Patient usually sleeps on his back due to TMJ. Discussed positioning and apnea worsening when we go into deep sleep. No PAP download from [employer] to review with patient today. Subjectively compliant and benefiting from treatment. Continue PAP therapy at current settings Order will be sent to [facility] for supplies: [employer] Insurance: Face to face examination completed 05/20/2024. Patient has fulfilled the insurance requirement within a 31-90 day period after starting PAP therapy. Subjectively patient has met standard compliance measures. However, I have no PAP download to review. Please send PAP download. Please send patient PAP supplies as covered by insurance. [employer]. Follow up as discussed. Mena Miranda, MACHINE I TRIMMER.[facility] ----- What are the symptoms of sleep apnea? Often the first signs of CE are recognized not by the patient, but by the bed partner. Many of those affected have no sleep complaints. The most common signs and symptoms of CE include: Snoring. Daytime sleepiness or fatigue. Restlessness during sleep, frequent nighttime awakenings. Sudden awakenings with a sensation of gasping or choking. Dry mouth or sore throat upon awakening. Cognitive impairment, such as trouble concentrating, forgetfulness or irritability. Mood disturbances (depression or anxiety). Night sweats. Frequent nighttime urination (nocturia). Sexual dysfunction. Headaches. What is sleep apnea? Sleep apnea is a serious sleep disorder that happens when a person's breathing is interrupted during sleep. People with untreated sleep apnea stop breathing repeatedly during their sleep, sometimes hundreds of times during the night. If it s not treated, sleep apnea can cause a number of health problems, including hypertension (high blood pressure), stroke, cardiomyopathy (enlargement of the muscle tissue of the heart), heart failure, diabetes and heart attacks. Untreated sleep apnea can also be responsible for job impairment, work-related accidents and motor vehicle crashes, as well as underachievement in school in children and adolescents. There are two types of sleep apnea, obstructive and central: Obstructive sleep apnea is the more common of the two. Obstructive sleep apnea occurs as repetitive episodes of complete or partial upper airway blockage during sleep. During an apneic episode, the diaphragm and chest muscles work harder as the pressure increases to open the airway. Breathing usually resumes with a loud gasp or body jerk. These episodes can interfere with sound sleep, reduce the flow of oxygen to vital organs, and cause heart rhythm irregularities. In central sleep apnea, the airway is not blocked but the brain fails to signal the muscles to breathe due to instability in the respiratory control center. Central apnea is related to the function of the central nervous system. Who gets sleep apnea? Sleep apnea occurs in about 25% of men and nearly 10% of women. Sleep apnea can affect people of all ages, including babies and children and particularly people over the age of 50 and those who are overweight. Certain physical traits and clinical features are common in patients with obstructive sleep apnea. These include excessive weight, large neck and structural abnormalities reducing the diameter of the upper airway, such as nasal obstruction, a low-hanging soft palate, enlarged tonsils or a small jaw with an overbite. What causes sleep apnea? Obstructive sleep apnea is caused by a blockage of the airway, usually when the soft tissue in the rear of the throat collapses during sleep. Central sleep apnea is usually observed in patients with central nervous system dysfunction, such as following a stroke or in patients with neuromuscular diseases like amyotrophic lateral sclerosis (ALS, Pepper Gehrig s disease). It is also common in patients with heart failure and other forms of heart, kidney or lung disease. People with central sleep apnea more often report recurrent awakenings or insomnia, although they may also experience a choking or gasping sensation upon awakening. What is PAP therapy? About Your PAP Therapy: Continuous Positive Airway Pressure (CPAP)/ Bi-level Therapy What is obstructive sleep apnea? The most common type of sleep apnea is obstructive sleep apnea (CE), a condition in which the upper airway collapses during sleep. This obstruction keeps air from getting into your lungs. Treatment The most common form of treatment today for CE is the use of a Positive Airways Pressure (PAP) device. The PAP device holds the airway open by using air pressure that is introduced through the nose with a nose mask or similar device. The air travels down the back of the throat, and into your upper airway. The amount of air pressure set on your pap machine is determined during the sleep study. There are two types of devices: CPAP (Continuous Positive Airways Pressure)- is the most widely used of the PAP devices. Bi-Level - uses one pressure during inspiration, and a lower pressure during expiration. There is a criterion that must be met before insurance will cover the Bi-Level. This usually means that the CPAP machine must be tried first with no success and these results documented before insurance will pay for a Bi-Level. The machine delivered to you is preset with the pressure as ordered by your physician. Do not attempt to adjust this pressure at any time. The pressure can only be changed by the sleep lab, or our staff members who are trained in doing this procedure. The machine will use a mask to deliver the air through your nose and/or mouth. These devices are available in various sizes and styles as illustrated below. Your [facility] sleep specialist or technologist will fit you with the most effective and comfortable mask possible. Please contact us if you ever feel you would need to be refitted or need a replacement mask. Is the PAP machine difficult to use? It will take some time for you to get used to the new equipment and it may take a while for you to begin to feel the benefits of PAP therapy. If you are having problems adjusting to your machine, please contact us for help. Tips for using your PAP Therapy Assembly: Place your PAP machine on a level surface near your bed. Keep the machine at least 12 inches away from anything that may block the vents. To prevent injury, do not place the machine higher than your head. Plug the machine into a properly grounded electrical outlet. It is better to avoid using an extension cord. If necessary, use a heavy-duty one. If you are NOT using a humidifier with your PAP equipment: Attach one end of your 6-foot tubing to the PAP unit outlet and the other end to your mask. (If your mask does not have a built-in exhalation port, a special exhalation valve should be used between the mask and the 6-foot tubing.) Attach the headgear to your mask. If you are using a humidifier: Fill the humidifier with DISTILLED water to the maximum fill line. Attach one end of your 6-foot tubing to the humidifier outlet and the other end to your mask. (If your mask does not have a built-in exhalation port, a special exhalation valve should be used between the mask and the 6-foot tubing.) If you have been prescribed oxygen with the PAP machine, you will be given instructions on how to attach your oxygen tubing. Always turn off the oxygen tank before turning off your PAP machine. Getting started: Wash your face and apply the mask and headgear as instructed. The mask should fit snugly to prevent air leaks, but not so tight as to cause skin irritation or discomfort. Turn the PAP power switch to the ON position. You should feel air blowing through the mask. Breathe normally and adjust the mask if you feel an air leak. If there are no leaks, activate the ramp feature on your PAP machine. The ramp allows a lower pressure to be delivered for a designated time period (usually 5 to 45 minutes) to allow you to relax and fall asleep easier. The pressure will then gradually increase to the prescribed pressure that controls your apnea. Remember to turn OFF your PAP unit when it is not in use. Equipment Cleaning Keeping your equipment clean is very important to assuring your success with positive pressure therapy. Following the guidelines below can help you avoid preventable respiratory infections, as well as ensure the proper operation and the usable life of the equipment. Daily: Wash mask or nasal pillows with mild dish soap. Rinse well and dry. Wash humidifier water chamber with mild dish soap. Rinse well and refill with water recommended by the wildlife veterinarian. Weekly: Wash hose with mild dish soap. Rinse well and hang to air dry or connect the hose to your CPAP/BIPAP and allow air to blow through the hose until dry. Soak the humidifier water chamber in 1 part white vinegar and 3 parts water for 30 minutes. Rinse well. Avoid: Alcohol, baby wipes, antibacterial soaps, glycerin, oil-based soap, peroxide, bleach, aromatic soaps and lotions. Troubleshooting If the machine fails to turn on: Make sure that the PAP machine is plugged into a grounded outlet Make sure that the ON/OFF switch is in the ON position. Make sure that the wall outlet has power. If there is no pressure coming from your machine: Make sure that the inlet filter is clean and unblocked. Make sure that the cooling fan is unblocked and that air is flowing freely. Make sure that all tubing is securely connected. Important Safety Information Use this machine as prescribed by your doctor. Untreated CE can lead to hypertension, congestive heart failure, stroke, Type 2 diabetes, obesity, chronic fatigue, depression, and glaucoma. DO NOT let anyone else use your machine for any reason. If you are using supplemental oxygen in line with your PAP device, be sure to observe all oxygen safety precautions. There should be no smoking at any time. Keep the equipment away from an open flame or heat source. Do not use the PAP system around water other than what is in the humidifier. This could cause an electrical shock. If a humidifier is used, keep the height of the humidifier at a level which is slightly lower than the level of your head. REASON: If your humidifier gets knocked over while you are sleeping, you want the water to move away from your head and not into your nose. Frequently Asked Questions 1. What are the benefits of PAP therapy? First, it will decrease your chances of getting any of the conditions listed in bold above. PAP therapy will increase your energy levels; improve your mental alertness, your mood, your quality of sleep, and your quality of life. 2. Is the PAP machine difficult to use? It will take some time for you to get used to the new equipment and it may take a while for you to begin to feel the benefits of PAP therapy. If you are having problems adjusting to your machine, please contact us for help. 3. If I lose weight, will I cure my CE? That depends. Some people have shown decreased symptoms from CE after losing weight and were removed from their PAP machine; others have not. However, if you are overweight, losing weight will always improve your health and decrease your risks of developing other health issues. 4. How long will I need to use this machine? PAP therapy is just that--therapy. As long as you have CE, you need to do something to improve your quality of sleep. Today, after many years of experimenting with surgeries, oral appliances, special bed pillows, etc, positive airway pressure is the gold standard for relieving and improving symptoms of CE. 5. Is this covered by my insurance? At [facility], upon receiving your PAP order, we contact your insurance company to verify that they will cover your machine. Based on your plan, you may have a co-payment every month or not. The insurance company also informs us at to how many months they will pay before the equipment is converted to a purchase. About Replacement Supplies The following is an outline of the typical replacement guidelines, however, we strongly advise you to contact your insurance company for your specific policy guidelines. We will gladly assist you in the process. Nasal mask - 1 every 3 months Full face mask - 1 every 3 months Nasal pillows - 2 pair every month Headgear - 1 every 6 months Chinstrap - 1 every 6 months Tubing - 1 every 3 months Filters - 2 every month depending on type Humidifier chamber - 1 every 6 months Please keep in mind that you may be responsible for any deductible, co-payments or out of pocket expense associated with your new supplies. ---- PAP Supply Guidelines Below are the guidelines for reordering your supplies. You will be responsible for your deductible, co-payments, and out of pocket expenses. Item Medicare & Commercial Insurance Medicaid & HCAP Nasal Mask (no headgear) 1 every 3 months 1 per year Nasal Mask Cushion 1 every month 2 per year Full Face Mask (no headgear) 1 every 3 months 1 per year Full Face Mask Cushion 1 every month *Self-Pay Nasal Pillows 2 every month 2 per year Headgear 1 every 6 months 1 per year Chin Strap 1 every 6 months 2 per year Tubing 1 every 3 months 1 per year Filters: Reusable 1 every 6 months 4 per year Filters: Disposable 2 every month 1 per month Humidifier Chamber(disposable) 1 every 6 months *Self-Pay documented in this encounter [facility] 05-20-2024 History of Presen t illness Narrative Images from the original note were not included. [facility] Virtual Visit New Patient Evaluation PATIENT NAME: Dylan Barron DATE OF SERVICE: May 14, 2024 [place] [employer] Rules ([employer] ): This visit was conducted as a Virtual Visit, with patient's permission, via Zoom. It required patient-provider interaction for the medical decision making as documented below. Patient stated first & last name: Dylan Barron Patient stated : 1985 Patient stated current location: [place] [id number] I have communicated my name, Mena AVRIL Miranda.ENMANUEL, and active licensure Adult Certified Nurse Practitioner in the Sleep Medicine Center at [facility]. The patient's identity and physical location were verified at the time of this visit. Either the patient or their legal regional sales representative has been informed of the risks and benefits of -- and alternatives to -- treatment through a remote evaluation and consents to proceed with the evaluation remotely. Virtual visits are a convenient way for us to meet, but there are some situations in which an in-person evaluation may be required at a later time. I want to check in to confirm your consent to be seen virtually today. Consent given: Yes CONSULTING PROVIDER: Keenan Lucas [address] [facility] [address] REASON FOR CONSULT: Keenan Lucas sends the patient for an opinion about Dx: CE (obstructive sleep apnea) [G47.33 (ICD-10-CM)]. My findings and recommendations will be transmitted electronically via shared medical record to the consulting provider. HPI: Dylan Barron is a 38 year old male. Sleep-related history: Patient was diagnosed with CE in February 2024. A Home Sleep Test (HST) performed on 02/24/24 revealed at least mild CE (AHI of 7.8, Off-Supine AHI 2.1, Supine AHI 8.8) that was associated with a minimum oxygen saturation of 88%. HSAT completed February 2024. He was prescribed PAP therapy. [employer] is DME. Nasal Pillows. Prior to PAP therapy, reports he was having a cough and chest discomfort. After PAP therapy, these complaints have improved. Here today to do his Face to Face exam and check to see if he has met his compliancy on his PAP device. SLEEP-WAKE SCHEDULE He is a self-described morning person. Bedtime: 2200. He does not have a hard time falling asleep. Wake time: 0500 WD, 0600 WE, with an alarm. After falling asleep: he wakes up 3 -4 time(s) per night, because of the need to reposition. On weekends, he maintains the same sleep schedule. Average total sleep time (in a 24 hour period): 7-8 hours. SLEEP-RELATED DETAILS Preferred sleep position: back Prior to PAP therapy, breathing disturbances and other behaviors during sleep: snoring, stopping breathing during sleep, moving around a lot, and frequent leg movements. After PAP therapy, no breathing disturbances and other behaviors during sleep. Bruxism: Yes, history of TMJ and sleeps on is back to prevent jaw from locking. GERD or aspiration: No Waking up with heart pounding or racing: No Anxiety or rumination: Yes He does not report having an urge to move the legs in the evening (when resting) that is accompanied or caused by uncomfortable and/or unpleasant sensations in the legs. He has been told that he has leg kicking during sleep. He denies any history of parasomnias. Excessive daytime sleepiness / fatigue is a problem. Excessive Daytime sleepiness/fatigue has improved with PAP therapy. . There is no history of a viral illness or significant head injury prior to the start of daytime sleepiness. He does not report sleep paralysis or sleep-related hallucinations or cataplexy . WAKE-RELATED DETAILS He works but is not a shift worker. Works [id number]. He does have some worsening with memory, Intact concentration. He denies falling asleep or dozing off when driving. He does not take naps. Very rare. He does drink 1 .5 cups of caffeinated beverages per day. There has not been a recent change in weight. Patient Questionnaires Sleep Scores 05/13/2024 Sleep Questions Reason for visit: Sleep apnea On average, hours of sleep in 24 hours: 7 Average hours of CPAP per night: 7 Percent of nights CPAP used at least 4 hours: 28 Accidents or near accidents due to drowsy drivin 05/13/2024 PROMIS CAT Sleep Disturbance PROMIS Sleep Disturbance T-Score 46 (within normal limits) PROMIS Sleep Disturbance Percentile 66 05/13/2024 PHQ-9 Score 1 05/13/2024 PROMIS Global Health - (T-Scores - the mean of general population = 50. Five points is a clinically meaningful difference.) Physical T-Score 50.8 Mental T-Score 38.8 [place] Sleepiness Scale Sitting and Reading? moderate chance of dozing (2) Watching TV? slight chance of dozing (1) Sitting inactive in a public place (e.g a theater or a meeting) no chance of dozing (0) As a passenger in a car for an hour without a break? no chance of dozing (0) Lying down to rest in the afternoon when circumstances permit? high chance of dozing (3) Sitting and talking to someone? no chance of dozing (0) Sitting quietly after lunch without alcohol? no chance of dozing (0) In a car, while stopped for a few minutes in traffic? no chance of dozing (0) Total Score NORMAL (6) PAST TREATMENTS: Saray 3G Pap Device React PRIOR SLEEP STUDIES: A Home Sleep Test (HST) performed on 02/24/24 revealed at least mild CE (AHI of 7.8, Off-Supine AHI 2.1, Supine AHI 8.8) that was associated with a minimum oxygen saturation of 88%. OTHER RELEVANT LABS AND STUDIES: Hemoglobin Date Value Ref Range Status 12/02/2021 15.3 13.0 - 17.0 g/dL Final No results found for: FE, TIBC No results found. PAST MEDICAL HISTORY Diagnosis Date Chronic nonintractable headache 12/09/2018 may be migraines. Dizziness 12/09/2018 Seeing Neurology, Dr. Obrien in [facility] Elevated blood pressure reading in office with diagnosis of hypertension Family history of early CAD 12/09/2018 Brother at 36 Mixed hyperlipidemia CE on CPAP PAST SURGICAL HISTORY Procedure Laterality Date NONE ACTIVE PROBLEM LIST Dizziness Family History of Early Cad Well Adult Exam Chronic Nonintractable Headache Encounter for Screening for Diabetes Mellitus Encounter for Lipid Screening for Cardiovascular Disease Stress Reaction Ce (Obstructive Sleep Apnea) Mixed Hyperlipidemia Ce On Cpap Elevated Blood Pressure Reading in Office With Diagnosis of Hypertension Allergies As of Date: 05/20/2024 Allergen Noted Reaction DOXYCYCLINE 07/07/2022 GI Upset Fully Assessed 04/15/2024 CURRENT MEDICATIONS: CPAP/BIPAP/OTHER Type .CPAPSettings into a note to see current settings/supplies/DME information. melatonin 10 mg tab Take by mouth at bedtime as needed for insomnia. CPAP Initiate Auto PAP @ 5-20 cm of water with humidification. Mask (per patient preference) optional chin strap (if indicated) , filters, tubing, humidifier and lifetime supplies. MULTIVITAMIN ORAL Take by mouth. Take one tablet daily ascorbic acid, vitamin C, (VITAMIN C) 500 mg tablet Take 500 mg by mouth once daily. Take 2 tablets daily sertraline (ZOLOFT) 50 mg tablet 1/2 a tablet by mouth once a day for 14 days then go to one tablet daily Prior Hypersomnia/Narcolepsy Medications (20 years) No data to display Prior RLS Medications (last 20 years) No data to display Prior Insomnia Medications (last 20 years) 04/15/2024 00:00 Insomnia Medications sertraline HCl 1/2 a tablet by mouth once a day for 14 days then go to one tablet daily (50 mg tab) melatonin Take by mouth at bedtime as needed for insomnia. (10 mg tab) Details Outpatient prescription Medication marked as long-term Patient-reported medication Review of Systems Constitutional: Negative. Respiratory: Negative. Cardiovascular: Negative. Genitourinary: Negative. SOCIAL HISTORY: Social History Tobacco Use Smoking status: Never Smokeless tobacco: Never Substance Use Topics Alcohol use: Yes Comment: very rare Drug use: Never FAMILY HISTORY: FAMILY HISTORY Problem Relation Age of Onset Hyperlipidemia Mother Diabetes Father type 2 Heart Attack Brother 36 09/2018 Heart Maternal Grandmother No Known Problems Maternal Grandfather Diabetes Paternal Grandfather Prostate Cancer Maternal Uncle ? Heart Maternal cousin Alzheimer's Disease No Family History Colon Cancer No Family History Breast Cancer No Family History Ovarian cancer No Family History Uterine Cancer No Family History Hypertension No Family History Kidney Disease No Family History Seizures No Family History Stroke No Family History Thyroid No Family History There is a family history of: Sleep apnea. Relative: Father VITAL SIGNS: Deferred due to virtual visit. PHYSICAL EXAMINATION: Constitutional: Appearance: Well groomed. Well nourished MALE. Very pleasant. Neurological: General: No focal deficit present. Mental Status: A&OX3 (person, place, and time). Speech: Clear, projects well. Memory: Intact, responses appropriate. Mood and Affect: Mood normal. Behavior: Behavior normal Assessment & Plan Diagnosis: Ce (obstructive sleep apnea) (primary encounter diagnosis) Hypertension, unspecified type Overview: Dylan Barron is a 38 year old year old male with a PMH of Headaches who presents via Virtual Visit for Dx: EC (obstructive sleep apnea) [G47.33 (ICD-10-CM)] Patient was diagnosed with CE in February 2024. A Home Sleep Test (HST) was completed on 02/24/24. He was prescribed PAP therapy. [employer] is DME. Nasal Pillows. Prior to PAP therapy, reports he was having a cough and chest discomfort. After PAP therapy, these complaints have improved. Here today to do his face to face exam and check to see if he has met his compliancy on his PAP device. Discussed Home Sleep Test (HST) performed on 02/24/24 revealed at least mild CE (AHI of 7.8, Off-Supine AHI 2.1, Supine AHI 8.8) that was associated with a minimum oxygen saturation of 88%. The results of this study may represent an underestimation of the degree of obstructive sleep apnea, especially hypopneas, because of the known limitations of HSAT, such as inability to record arousals because EEG is not recorded. Discussed the diagnosis and physiology of obstructive sleep apnea. Discussed the importance of treating CE, with particular attention given to the comorbidities associated with untreated CE, which include but are not limited to hypertension, heart disease, stroke, obesity and daytime sleepiness that can affect normal daytime functioning. Discussed treatment of mild sleep apnea can include weight loss, positional therapy, treatment of allergies, oral appliance therapy or ENT evaluation of any airway abnormalities. PAP therapy may be considered in patients with documented symptoms of daytime sleepiness, impaired cognition, mood disorder, insomnia, or documented hypertension, ischemic heart disease, or history of stroke. Doing well with PAP therapy. Denies mask or pressure intolerance. However, reports he may wake up later in the night with pressure really high. Patient usually sleeps on his back due to TMJ. Discussed positioning and apnea worsening when we go into deep sleep. No PAP download from [employer] to review with patient today. Subjectively compliant and benefiting from treatment. Continue PAP therapy at current settings Order will be sent to DME for supplies: [employer] Insurance: Face to face examination completed 05/20/2024. Patient has fulfilled the insurance requirement within a 31-90 day period after starting PAP therapy. Subjectively patient has met standard compliance measures. However, I have no PAP download to review. Please send PAP download. Please send patient PAP supplies as covered by insurance. [employer]. Follow up as discussed. I spent a total of 56 minutes. This was a new patient to me on the date of the service which included preparing to see the patient, [id number] patient care, completing clinical documentation, counseling and educating the patient/family/caregiver and ordering medications, tests, or procedures. Mena Miranda APRN.CNP Activity Duration Pre-charting 59 minutes Total time: 59 minutes documented in this encounter [facility] 05-20-2024 Note HNO ID: [id number] Author: MENA MIRANDA APRN.CNP Service: ? Author Type: Nurse Practitioner Type: Progress Notes Filed: 05/20/2024 11:47 Note Text: [facility] Virtual Visit New Patient Evaluation PATIENT NAME: Dylan Barron DATE OF SERVICE: May 14, 2024 [place] [employer] Rules ([employer] ): This visit was conducted as a Virtual Visit, with patient's permission, via Zoom. It required patient-provider interaction for the medical decision making as documented below. Patient stated first AND last name: Dlyan Barron Patient stated : 1985 Patient stated current location: [place] [address] I have communicated my name, Mena Miranda APRN.CNP, and active licensure Adult Certified Nurse Practitioner in the Sleep Medicine Center at [facility]. The patient's identity and physical location were verified at the time of this visit. Either the patient or their legal regional sales representative has been informed of the risks and benefits of -- and alternatives to -- treatment through a remote evaluation and consents to proceed with the evaluation remotely. Virtual visits are a convenient way for us to meet, but there are some situations in which an in-person evaluation may be required at a later time. I want to check in to confirm your consent to be seen virtually today. Consent given: Yes CONSULTING PROVIDER: Keenan Lucas [address] [facility] [address] REASON FOR CONSULT: Keenan Lucas sends the patient for an opinion about Dx: CE (obstructive sleep apnea) [G47.33 (ICD-10-CM)]. My findings and recommendations will be transmitted electronically via shared medical record to the consulting provider. HPI: Dylan Barron is a 38 year old male. Sleep-related history: Patient was diagnosed with CE in February 2024. A Home Sleep Test (HST) performed on 02/24/24 revealed at least mild CE (AHI of 7.8, Off-Supine AHI 2.1, Supine AHI 8.8) that was associated with a minimum oxygen saturation of 88%. HSAT completed February 2024. He was prescribed PAP therapy. [employer] is DME. Nasal Pillows. Prior to PAP therapy, reports he was having a cough and chest discomfort. After PAP therapy, these complaints have improved. Here today to do his Face to Face exam and check to see if he has met his compliancy on his PAP device. SLEEP-WAKE SCHEDULE He is a self-described morning person. Bedtime: 2200. He does not have a hard time falling asleep. Wake time: 0500 WD, 0600 WE, with an alarm. After falling asleep: he wakes up 3 -4 time(s) per night, because of the need to reposition. On weekends, he maintains the same sleep schedule. Average total sleep time (in a 24 hour period): 7-8 hours. SLEEP-RELATED DETAILS Preferred sleep position: back Prior to PAP therapy, breathing disturbances and other behaviors during sleep: snoring, stopping breathing during sleep, moving around a lot, and frequent leg movements. After PAP therapy, no breathing disturbances and other behaviors during sleep. Bruxism: Yes, history of TMJ and sleeps on is back to prevent jaw from locking. GERD or aspiration: No Waking up with heart pounding or racing: No Anxiety or rumination: Yes He does not report having an urge to move the legs in the evening (when resting) that is accompanied or caused by uncomfortable and/or unpleasant sensations in the legs. He has been told that he has leg kicking during sleep. He denies any history of parasomnias. Excessive daytime sleepiness / fatigue is a problem. Excessive Daytime sleepiness/fatigue has improved with PAP therapy. . There is no history of a viral illness or significant head injury prior to the start of daytime sleepiness. He does not report sleep paralysis or sleep-related hallucinations or cataplexy . WAKE-RELATED DETAILS He works but is not a shift worker. Works [id number]. He does have some worsening with memory, Intact concentration. He denies falling asleep or dozing off when driving. He does not take naps. Very rare. He does drink 1 .5 cups of caffeinated beverages per day. There has not been a recent change in weight. Patient Questionnaires Sleep Scores 05/13/2024 Sleep Questions Reason for visit: Sleep apnea On average, hours of sleep in 24 hours: 7 Average hours of CPAP per night: 7 Percent of nights CPAP used at least 4 hours: 28 Accidents or near accidents due to drowsy drivin 05/13/2024 PROMIS CAT Sleep Disturbance PROMIS Sleep Disturbance T-Score 46 (within normal limits) PROMIS Sleep Disturbance Percentile 66 05/13/2024 PHQ-9 Score 1 05/13/2024 PROMIS Global Health - (T-Scores - the mean of general population = 50. Five points is a clinically meaningful difference.) Physical T-Score 50.8 Mental T-Score 38.8 [place] Sleepiness Scale Sitting and Reading? moderate chance of dozing (2) Watching TV? slight chance of dozing (1) Sitting inactive in a public place (e.g a theater or a (more content not included)... [facility] 04-15-2024 History of Presen t illness Narrative [facility] CARD[facility]OLOG[facility] Carlton Katz MD SUBJECTIVE: Dylan Barron is a 38 year old male who is here today for a new patient visit. The patient tells me that we have seen him in the past but has been about 5 years. In 2019, his 36-year-old brother of acute DE. The corner confirmed he had coronary artery disease. The patient's maternal grandmother at 55 of what is believed to be a cardiac issue. He also had a cousins on his mother's side who at 41 years of age who is believed to have from a heart problem. He complains of chest pain and shortness of breath with exertion. He does not have chest pain or shortness of breath at rest. The chest discomfort is in the left chest. It does not radiate. He does not have associated diaphoresis. He has not had any episodes of syncope or near syncope but he is dizzy at times. He has not had any problems with palpitations, PND, orthopnea, or edema. PAST MEDICAL HISTORY 12/09/2018: Chronic nonintractable headache Comment: may be migraines. 12/09/2018: Dizziness Comment: Seeing Neurology, Dr. Obrien in [facility] No date: Elevated blood pressure reading in office with diagnosis of hypertension 12/09/2018: Family history of early CAD Comment: Brother at 36 No date: Mixed hyperlipidemia No date: CE on CPAP PAST SURGICAL HISTORY No date: NONE FAMILY HISTORY Problem Relation Age of Onset Hyperlipidemia Mother Diabetes Father type 2 Heart Attack Brother 36 09/2018 Heart Maternal Grandmother No Known Problems Maternal Grandfather Diabetes Paternal Grandfather Prostate Cancer Maternal Uncle ? Heart Maternal cousin Alzheimer's Disease No Family History Colon Cancer No Family History Breast Cancer No Family History Ovarian cancer No Family History Uterine Cancer No Family History Hypertension No Family History Kidney Disease No Family History Seizures No Family History Stroke No Family History Thyroid No Family History SOCIAL HISTORY: Social History Tobacco Use Smoking status: Never Smokeless tobacco: Never Substance Use Topics Alcohol use: Yes Comment: very rare Drug use: Never ALLERGIES: Doxycycline CURRENT MEDICATIONS: Current Outpatient Medications Medication Sig melatonin 10 mg tab Take by mouth at bedtime as needed for insomnia. CPAP Initiate Auto PAP @ 5-20 cm of water with humidification. Mask (per patient preference) optional chin strap (if indicated) , filters, tubing, humidifier and lifetime supplies. MULTIVITAMIN ORAL Take by mouth. Take one tablet daily ascorbic acid, vitamin C, (VITAMIN C) 500 mg tablet Take 500 mg by mouth once daily. Take 2 tablets daily sertraline (ZOLOFT) 50 mg tablet 1/2 a tablet by mouth once a day for 14 days then go to one tablet daily No current facility-administered medications for this visit. Review of Systems Constitutional: Negative for activity change and fever. Respiratory: Positive for shortness of breath. Negative for apnea, cough, chest tightness, wheezing and stridor. Cardiovascular: Positive for chest pain. Negative for palpitations and leg swelling. Gastrointestinal: Negative for abdominal distention, diarrhea and vomiting. Musculoskeletal: Negative for joint swelling, neck pain and neck stiffness. Skin: Negative for color change, pallor and rash. Neurological: Positive for dizziness. Negative for syncope, weakness, light-headedness and numbness. Hematological: Does not bruise/bleed easily. Psychiatric/Behavioral: Negative for agitation, behavioral problems and confusion. The patient is not nervous/anxious. All other systems reviewed and are negative. PHYSICAL EXAMINATION: 04/15/24 0851 BP: 140/82 BP Position: Sitting Pulse: 64 Weight: 74.8 kg (165 lb) Height: 177.8 cm (5' 10) Last 3 Encounter BP Readings: Date: BP: 02/09/2024 122/80 12/10/2023 148/80 09/10/2023 127/84 Last 3 Encounter Pulse Readings: Date: Pulse: 02/09/2024 80 12/10/2023 114 09/10/2023 82 Last 3 Encounter Wt Readings: Date: Wt: 02/09/2024 72.6 kg (160 lb) 12/10/2023 74.3 kg (163 lb 12.8 oz) 09/10/2023 75.3 kg (166 lb) Potassium (mmol/L) Date Value 12/02/2021 3.9 Sodium (mmol/L) Date Value 12/02/2021 138 Creatinine (mg/dL) Date Value 12/02/2021 0.82 BUN (mg/dL) Date Value 12/02/2021 16 Glucose (mg/dL) Date Value 12/02/2021 84 TSH Date Value 12/02/2021 2.450 mIU/L 12/09/2018 2.710 uU/mL Physical Exam Vitals and nursing note reviewed. Constitutional: General: He is not in acute distress. Appearance: Normal appearance. He is not toxic-appearing. HENT: Head: Normocephalic and atraumatic. Nose: Nose normal. Mouth/Throat: Mouth: Mucous membranes are moist. Neck: Vascular: No carotid bruit. Cardiovascular: Rate and Rhythm: Normal rate and regular rhythm. Pulses: Normal pulses. Heart sounds: Normal heart sounds. No murmur heard. No friction rub. No gallop. Pulmonary: Effort: Pulmonary effort is normal. No respiratory distress. Breath sounds: Normal breath sounds. No stridor. No wheezing, rhonchi or rales. Chest: Chest wall: No tenderness. Abdominal: General: Abdomen is flat. There is no distension. Palpations: Abdomen is soft. There is no mass. Tenderness: There is no abdominal tenderness. Musculoskeletal: General: No swelling. Cervical back: Normal range of motion. No muscular tenderness. Right lower leg: No edema. Left lower leg: No edema. Skin: General: Skin is warm and dry. Capillary Refill: Capillary refill takes less than 2 seconds. Coloration: Skin is not jaundiced or pale. Findings: No bruising or rash. Neurological: General: No focal deficit present. Mental Status: He is alert and oriented to person, place, and time. Mental status is at baseline. Motor: No weakness. Gait: Gait normal. Psychiatric: Mood and Affect: Mood normal. Behavior: Behavior normal. Thought Content: Thought content normal. Judgment: Judgment normal. Diagnostic results: EKG: Normal sinus rhythm, 64 bpm, nonspecific T wave abnormality ASSESSMENT/PLAN: 1. Mixed hyperlipidemia - ICD9: 272.2, ICD10: E78.2 (primary diagnosis) Patient is not on any lipid-lowering medications. Managed by primary care physician. 2. Dizziness - ICD9: 780.4, ICD10: R42 Patient has had some episodes of dizziness. He denies syncope or near syncope. Will get a stress test and echocardiogram for further evaluation. 3. Family history of early CAD - ICD9: V17.3, ICD10: Z82.49 The patient is a family history of CAD in early age. Brother of a heart attack at 36 years of age in 2019. 4. Stable Angina I20.89 The patient complains of chest discomfort with activity. He does not have chest discomfort at rest. He has not had any cardiac testing for several years. His brother of coronary artery disease and acute DE at 36 years of age. EKG shows nonspecific T wave abnormalities. Will have patient get a lead male nuclear stress test for further evaluation. 5. Shortness of breath R06.02 The patient complains of shortness of breath with activity. He is not short of breath at rest. He has not had any cardiac testing for some time. Will have the patient get a stress test and echocardiogram for further evaluation of shortness of breath. 6. Elevated blood pressure without a diagnosis of hypertension The patient's blood pressure is elevated today. Target blood pressure 130/80 or less. He states that his blood pressure was on the higher side when he saw his primary care provider but when they rechecked it after 20 minutes or so it was normal. He does have a blood pressure cuff at home. He will start to check his blood pressure at home and let me know if his systolic pressure is 135 or greater or diastolic pressure is 90 or greater consistently. documented in this encounter [facility] 04-15-2024 Note HNO ID: [id number] Author: ADELINE PILLAI APRN.ENMANUEL Service: ? Author Type: Nurse Practitioner Type: Progress Notes Filed: 04/15/2024 09:42 Note Text: [facility]ARDIOLOG[facility] Carlton Katz MD SUBJECTIVE: Dylan Barron is a 38 year old male who is here today for a new patient visit. The patient tells me that we have seen him in the past but has been about 5 years. In 2019, his 36-year-old brother of acute DE. The corner confirmed he had coronary artery disease. The patient's maternal grandmother at 55 of what is believed to be a cardiac issue. He also had a cousins on his mother's side who at 41 years of age who is believed to have from a heart problem. He complains of chest pain and shortness of breath with exertion. He does not have chest pain or shortness of breath at rest. The chest discomfort is in the left chest. It does not radiate. He does not have associated diaphoresis. He has not had any episodes of syncope or near syncope but he is dizzy at times. He has not had any problems with palpitations, PND, orthopnea, or edema. PAST MEDICAL HISTORY 12/09/2018: Chronic nonintractable headache Comment: may be migraines. 12/09/2018: Dizziness Comment: Seeing Neurology, Dr. Obrien in [facility] No date: Elevated blood pressure reading in office with diagnosis of hypertension 12/09/2018: Family history of early CAD Comment: Brother at 36 No date: Mixed hyperlipidemia No date: CE on CPAP PAST SURGICAL HISTORY No date: NONE FAMILY HISTORY Problem Relation Age of Onset Hyperlipidemia Mother Diabetes Father type 2 Heart Attack Brother 36 09/2018 Heart Maternal Grandmother No Known Problems Maternal Grandfather Diabetes Paternal Grandfather Prostate Cancer Maternal Uncle ? Heart Maternal cousin Alzheimer's Disease No Family History Colon Cancer No Family History Breast Cancer No Family History Ovarian cancer No Family History Uterine Cancer No Family History Hypertension No Family History Kidney Disease No Family History Seizures No Family History Stroke No Family History Thyroid No Family History SOCIAL HISTORY: Social History Tobacco Use Smoking status: Never Smokeless tobacco: Never Substance Use Topics Alcohol use: Yes Comment: very rare Drug use: Never ALLERGIES: Doxycycline CURRENT MEDICATIONS: Current Outpatient Medications Medication Sig melatonin 10 mg tab Take by mouth at bedtime as needed for insomnia. CPAP Initiate Auto PAP @ 5-20 cm of water with humidification. Mask (per patient preference) optional chin strap (if indicated) , filters, tubing, humidifier and lifetime supplies. MULTIVITAMIN ORAL Take by mouth. Take one tablet daily ascorbic acid, vitamin C, (VITAMIN C) 500 mg tablet Take 500 mg by mouth once daily. Take 2 tablets daily sertraline (ZOLOFT) 50 mg tablet 1/2 a tablet by mouth once a day for 14 days then go to one tablet daily No current facility-administered medications for this visit. Review of Systems Constitutional: Negative for activity change and fever. Respiratory: Positive for shortness of breath. Negative for apnea, cough, chest tightness, wheezing and stridor. Cardiovascular: Positive for chest pain. Negative for palpitations and leg swelling. Gastrointestinal: Negative for abdominal distention, diarrhea and vomiting. Musculoskeletal: Negative for joint swelling, neck pain and neck stiffness. Skin: Negative for color change, pallor and rash. Neurological: Positive for dizziness. Negative for syncope, weakness, light-headedness and numbness. Hematological: Does not bruise/bleed easily. Psychiatric/Behavioral: Negative for agitation, behavioral problems and confusion. The patient is not nervous/anxious. All other systems reviewed and are negative. PHYSICAL EXAMINATION: 04/15/24 0851 BP: 140/82 BP Position: Sitting Pulse: 64 Weight: 74.8 kg (165 lb) Height: 177.8 cm (5' 10) Last 3 Encounter BP Readings: Date: BP: 02/09/2024 122/80 12/10/2023 148/80 09/10/2023 127/84 Last 3 Encounter Pulse Readings: Date: Pulse: 02/09/2024 80 12/10/2023 114 09/10/2023 82 Last 3 Encounter Wt Readings: Date: Wt: 02/09/2024 72.6 kg (160 lb) 12/10/2023 74.3 kg (163 lb 12.8 oz) 09/10/2023 75.3 kg (166 lb) Potassium (mmol/L) Date Value 12/02/2021 3.9 Sodium (mmol/L) Date Value 12/02/2021 138 Creatinine (mg/dL) Date Value 12/02/2021 0.82 BUN (mg/dL) Date Value 12/02/2021 16 Glucose (mg/dL) Date Value 12/02/2021 84 TSH Date Value 12/02/2021 2.450 mIU/L 12/09/2018 2.710 uU/mL Physical Exam Vitals and nursing note reviewed. Constitutional: General: He is not in acute distress. Appearance: Normal appearance. He is not toxic-appearing. HENT: Head: Normocephalic and atraumatic. Nose: Nose normal. Mouth/Throat: Mouth: Mucous membranes are moist. Neck: Vascular: No carotid bruit. Cardiovascular: Ra (more content not included)... [facility] 03-08-2024 Telephone encounter Note Noted. [facility] 03-08-2024 Miscellaneous Notes Noted. Leonor Conley calling to report PA for CPAP device has been APPROVED, valid dates 03/07/24 - 06/04/24. Reference # [id number]. Rita Avila LPN documented in this encounter [facility] 03-08-2024 Telephone encounter Note Leonor from [employer] calling to report PA for CPAP device has been APPROVED, valid dates 03/07/24 - 06/04/24. Reference # [id number]. Rita Avila LPN [facility] 03-03-2024 Telephone encounter Note CPAP with settings ordered by Dr. Lucas per sleep study results. Called and spoke with patient to see where to send order. He wasn't sure off hand per his insurance. He lives in [place]. [place] [facility] [place]. Order, demo and notes faxed. Patient is scheduled with sleep med in Jun. Casie Upton MA [facility] 03-03-2024 Miscellaneous Notes CPAP with settings ordered by Dr. Lucas per sleep study results. Called and spoke with patient to see where to send order. He wasn't sure off hand per his insurance. He lives in [place]. We decided to send [place] [facility] [place]. Order, demo and notes faxed. Patient is scheduled with sleep med in Jun. Casie Upton MA Contacted patient and let him know of results. Please schedule patient for Sleep Med. Charlene Rod MA His sleep test shows at least mild sleep apnea. Given his daytime fatigue, I would recommend starting an autopap machine and following up with sleep med. Rx printed. documented in this encounter [facility] 03-02-2024 Telephone encounter Note Contacted patient and let him know of results. Please schedule patient for Sleep Med. Charlene Rod MA [facility] 03-01-2024 Telephone encounter Note His sleep test shows at least mild sleep apnea. Given his daytime fatigue, I would recommend starting an autopap machine and following up with sleep med. Rx printed. [facility] 02-26-2024 Note HNO ID: [id number] Author: ?, ?, ? Service: ? Author Type: ? Type: Progress Notes Filed: 02/26/2024 10:59 Note Text: Sleep Study Check-In Documentation Date: February 26, 2024 Name: Dylan Barron Comments: HST was returned in working order with all sleep questionnaires Maritza Fu [facility] 02-26-2024 History of Presen t illness Narrative Sleep Study Check-In Documentation Date: February 26, 2024 Name: Dylan Barron Comments: HST was returned in working order with all sleep questionnaires Maritza Fu [employer] # [id number] , date shipped out 02-23-24 [employer] only Tracking mailout: [id number] Tracking return: [id number] Abstract-DR Mickey Myers February 10, 2024 Standing PSG Orders signed in the last 90 days None Future PSG Orders signed in the last 90 days Ordered Auth. provider HOME SLEEP APNEA TEST (HSAT) [[id number]] 02/09/24 Carlton Katz MD Assoc. diagnoses: Snores [R06.83], Hypersomnolence [G47.10], Witnessed episode of apnea [R06.81] Q: Indications: A: Obstructive sleep apnea Q: STOP-BANG conditions - Select All That Apply: A: GENDER = male A2: SNORING that is loud or disruptive A3: OBSERVED sleep apnea A4: TIREDNESS, fatigue or sleepiness during the day Q: Current use of supplemental oxygen during sleep period?: A: No All Prior Sleep Studies (past 365 days) 02/09/2024 08:32 Sleep Studies HOME SLEEP APNEA TEST (HSAT) HOME SLEEP APNEA TEST (HSAT) Order Status: Ordered, Future Expires: 02/08/25 BMI Readings from Last 2 Encounters: 02/09/24 : 22.63 kg/m 12/10/23 : 23.50 kg/m PAST MEDICAL HISTORY Diagnosis Date Chronic nonintractable headache 12/09/2018 may be migraines. Dizziness 12/09/2018 Seeing Neurology, Dr. Obrien in [facility] Encounter for lipid screening for cardiovascular disease 02/09/2024 Family history of early CAD 12/09/2018 Brother at 36 The medical record was reviewed to determine if the proposed sleep study conforms to the AASM Practice Parameters for the Indications for Polysomnography and Related Procedures, or if the sleep study is indicated for other reasons. Indications for study: CE suspected without comorbid medical or sleep disorders Sleep study to be performed: Home Sleep Apnea Test (HSAT) Special instructions: None-follow laboratory protocol Richa Maxi - Sleep Medicine Staff Note: I have read the above protocol, edited as needed, and agree to the plan. Negrito Pratt III, PhD 5:02 PM, 02/12/2024 February 10, 2024 An order has been received for Home Sleep Apnea Test (HSAT) from Carlton Umana MD , a [facility] Staff. Visit prep complete. Comments :No The sleep study is scheduled for 02/22. Insurance: Payor: ERON / Plan: BLUE ACCESS PPO / Product Type: PPO / Payer/Plan Subscr Sex Relation Sub. Ins. ID Effective Group Num 1. ERON ROSA* DYLAN BARRON 1985 Male Self [id number] [birth year] [id number] [address] Debby Matthews documented in this encounter [facility] 02-23-2024 Note HNO ID: [id number] Author: ?, ?, ? Service: ? Author Type: ? Type: Progress Notes Filed: 02/26/2024 10:59 Note Text: [employer] # [id number] , date shipped out 02-23-24 [employer] only Tracking mailout: [id number] Tracking return: [id number] Abstract-DR Mickey Myers [facility] 02-10-2024 Telephone encounter Note Patient notified of results, verbalizes understanding of instructions. Destiny Miller LPN [facility] 02-10-2024 Miscellaneous Notes Patient notified of results, verbalizes understanding of instructions. Destiny Miller LPN Let patient know his lipid and blood screening labs were ok. documented in this encounter [facility] 02-10-2024 Telephone encounter Note Let patient know his lipid and blood screening labs were ok. [facility] 02-09-2024 Instructions Carlton Katz MD - 02/09/2024 8:10 AM EDT Try Claritin, Zyrtec or Estefania daily yo see if lessons allergy symptoms and the dizziness. Send Dr. Katz a My chart message in a month as to how you are doing with the Zoloft. documented in this encounter [facility] 02-09-2024 History of Presen t illness Narrative Chief Complaint Patient presents with: Physical HPI Dylan Barron is a 38 year old male who presents here today for Physical. Patient with hx of headache's, occasional dizziness as well as those reviewed and addressed below and in ROS. Still gets the occasional dizziness that seems to be worse when congested, therefore maybe allergy related. He is still getting headache's at times that seems to be stress related and notes he clenches his teeth often. Patient often has daytime hypersomnolence. says he snores and has witnessed apnea. Past medical history, appointments, medications, allergies reviewed. Previous Medical History PAST MEDICAL HISTORY Diagnosis Date Chronic nonintractable headache 12/09/2018 may be migraines. Dizziness 12/09/2018 Seeing Neurology, Dr. Obrien in [facility] Family history of early CAD 12/09/2018 Brother at 36 Previous Surgical History PAST SURGICAL HISTORY Procedure Laterality Date NONE Family History FAMILY HISTORY Problem Relation Age of Onset Hyperlipidemia Mother Diabetes Father type 2 Heart Attack Brother 36 09/2018 Heart Maternal Grandfather may of been CAD Diabetes Paternal Grandfather Prostate Cancer Maternal Uncle ? Alzheimer's Disease No Family History Colon Cancer No Family History Breast Cancer No Family History Ovarian cancer No Family History Uterine Cancer No Family History Hypertension No Family History Kidney Disease No Family History Seizures No Family History Stroke No Family History Thyroid No Family History Patient Allergies ALLERGIES Allergen Reactions Doxycycline GI Upset Stomach pain Current Medications Current Outpatient Medications on File Prior to Visit Medication Sig benzonatate (TESSALON PERLE) 100 mg capsule Take 1 capsule by mouth three times a day as needed for cough. albuterol HFA (PROVENTIL HFA, VENTOLIN HFA) 90 mcg/actuation inhaler Inhale 2 Puffs as instructed every 4 hours as needed for wheezing/shortness of breath. No current facility-administered medications on file prior to visit. Social History Social History Tobacco Use Smoking status: Never Smokeless tobacco: Never Substance Use Topics Alcohol use: Yes Comment: very rare Drug use: Never Review of Symptoms REVIEW OF SYSTEMS GENERAL: No weight loss, malaise or fevers HEENT: No changes in hearing or vision, no nose bleeds or other nasal problems. See HPI NECK: Negative for lumps, goiter, pain and significant neck swelling RESPIRATORY: Negative for cough, hemoptysis, wheezing, COPD, dyspnea or shortness of breath CARDIOVASCULAR: Negative for chest pain, leg swelling, hypertension, CHF or palpitations GI: No nausea, vomiting, or diarrhea and No heartburn or reflux symptoms : No history of dysuria, frequency or blood MUSCULOSKELETAL: Negative for joint pain or swelling, back pain or muscle pain SKIN: Negative for lesions, rash, and itching PSYCH: Negative for sleep disturbance, mood disorder and recent psychosocial stressors. Some anxiety at times. HEMATOLOGY/LYMPHOLOGY: Negative for prolonged bleeding, bruising easily or swollen nodes ENDOCRINE: Negative for cold or heat intolerance, polyuria, polydipsia and goiter NEURO: No history of syncope, paralysis, seizures or tremors EXAM: BP 142/94 (BP Site: Left Arm, BP Position: Sitting, BP Cuff Size: Regular Adult) Pulse 80 Resp 16 Ht 179.1 cm (5' 10.5) Wt 72.6 kg (160 lb) BMI 22.63 kg/m BP 122/80 Pulse 80 Resp 16 Ht 179.1 cm (5' 10.5) Wt 72.6 kg (160 lb) BMI 22.63 kg/m Last 4 Encounter Wt Readings: Date: Wt: 02/09/2024 72.6 kg (160 lb) 12/10/2023 74.3 kg (163 lb 12.8 oz) 09/10/2023 75.3 kg (166 lb) 02/03/2023 71.7 kg (158 lb) General Appearance: Well appearing, alert, in no acute distress, well-hydrated, well nourished.. Skin: Skin color, texture, turgor normal, no suspicious rashes or lesions. Head: Normocephalic, no masses, lesions, tenderness or abnormalities. Eyes: Anicteric sclera. Pupils are equally round and reactive to light. Extraocular movements are intact. . Ears: External ears, TM's normal, canals clear. Nose/Sinuses: Nares normal, septum midline, mucosa normal, no drainage or sinus tenderness. Oropharynx: Lips, mucosa, and tongue normal, teeth and gums normal, oropharynx normal. Neck: Supple, no adenopathy; thyroid symmetric, normal size, no bruits. Lungs: Lungs clear to auscultation. No wheezing, rhonchi, rales.. Heart: RRR without murmur, gallop, or rubs. No ectopy. Abdomen: Normal abdominal exam, Abdomen soft, non-tender. Bowel sounds normal. No masses, organomegaly. Extremities: No deformities, edema, skin discoloration, Good capillary refill. . Musculoskeletal: Spine range of motion normal. Muscular strength intact, No joint swelling, deformity, or tenderness. Peripheral Pulses: Normal. Neurologic: Gait normal. Reflexes normal and symmetric. Sensation to light touch and crainal nerves 2-12 intact.. Genitalia: Normal, Penis normal. No urethral discharge. Scrotum normal to palpation. No hernia.. Health Maintenance List Covid-19 Vaccine(3 - 2022- season) due on 04/10/2023 Influenza Vaccine(1) due on 04/10/2024 Lipid Screening due on 02/04/2028 DTaP,Tdap,Td Vaccine(9 - Td or Tdap) due on 01/02/2031 Behavioral Health Screening Completed HPV Vaccine Aged Out Hepatitis B Vaccine Discontinued Hepatitis C Screening Discontinued HIV Screening Discontinued Data reviewed A/P ASSESSMENT/PLAN: 1. Well adult exam - ICD9: V70.0, ICD10: Z00.00 (primary diagnosis) - Counseled on healthy diet and regular exercise - Follow up for annual exam in one year Check - HEMOGLOBIN A1C - LIPID PANEL, NONFASTING 2. Chronic nonintractable headache, unspecified headache type - ICD9: 784.0, ICD10: R51.9, G89.29 - may be secondary to stress and will trial Zoloft. Patient to my chart me in a month. - These may also be a factor of CE if his test is positive. 3. Dizziness - ICD9: 780.4, ICD10: R42 - this maybe secondary to allergies and discussed trial of an OTC antihistamine (options reviewed). 4. Snores - ICD9: 786.09, ICD10: R06.83 Check - HOME SLEEP APNEA TEST (HSAT) 5. Hypersomnolence - ICD9: 780.54, ICD10: G47.10 Check - HOME SLEEP APNEA TEST (HSAT) 6. Witnessed episode of apnea - ICD9: 786.03, ICD10: R06.81 Check - HOME SLEEP APNEA TEST (HSAT) 7. Family history of early CAD - ICD9: V17.3, ICD10: Z82.49 - CONSULT TO CARDIOLOGY: Deepak Dockery MD 8. Encounter for lipid screening for cardiovascular disease - ICD9: V77.91, V81.2, ICD10: Z13.220, Z13.6 Check - LIPID PANEL, NONFASTING 9. Encounter for screening for diabetes mellitus - ICD9: V77.1, ICD10: Z13.1 Check - HEMOGLOBIN A1C 10. Stress reaction - ICD9: 308.9, ICD10: F43.0 - as per #2 The following approved medication requests have been transmitted electronically. Requested Prescriptions Signed Prescriptions Disp Refills sertraline (ZOLOFT) 50 mg tablet 30 tablet 5 Si/2 a tablet by mouth once a day for 14 days then go to one tablet daily F/u in a year for WAE or sooner if issues. Carlton Katz MD documented in this encounter [facility] 12-10-2023 History of Presen t illness Narrative Radiology Service Progress Note PATIENT NAME: Dylan Barron DATE OF SERVICE: December 10, 2023 TIME: 12:38 PM PATIENT IDENTITY VERIFICATION COMPLETED USING TWO (2) IDENTIFIERS: Name and Date of confirmed by patient verbally. FALL SCREENING: Has the patient had 2 falls in the last year or 1 fall with injury or currently using an Ambulatory Assistive Device (Walker, Cane, Wheelchair, Crutches, etc.)? No PATIENT GENDER DATA: Male PATIENT RELEVANT IMPLANT DATA REVIEWED: Yes PATIENT PRESENTS WITH AN IMPLANTABLE OR ATTACHED BELT SPLICER: No RADIOLOGY DEPARTMENT: General X-ray: Exam(s) Completed: Chest X-Ray PERIPHERAL IV DATA: Not applicable SIGNED BY: RT Hans(R) December 10, 2023 12:38 PM documented in this encounter [facility] 12-10-2023 History of Presen t illness Narrative This note was created using [email or web address]meriter. Subjective Dylan Barron is a 38 year old male. HPI 38-year-old male presents for cough, congestion x 3 to 4 weeks. Patient states he started getting nasal congestion and cough about 3 to 4 weeks ago. He states over the past week cough has gotten progressively worse. Patient denies any chest pain or wheezing. He denies any history of COPD, asthma or pneumonia. States he has chest congestion and is coughing up some phlegm. He does still have some nasal congestion. He states that a couple days ago he started getting chills and bodyaches. He has not taken his temperature at home. He does have a fever here today. States his kids were sick a few weeks ago as well. Patient denies any vomiting or diarrhea. No other complaint. PAST MEDICAL HISTORY Diagnosis Date Chronic nonintractable headache 12/09/2018 may be migraines. Dizziness 12/09/2018 Seeing Neurology, Dr. Obrien in [facility] Family history of early CAD 12/09/2018 Brother at 36 PAST SURGICAL HISTORY Procedure Laterality Date NONE ALLERGIES Doxycycline MEDICATIONS albuterol HFA (PROVENTIL HFA, VENTOLIN HFA) 90 mcg/actuation inhaler Inhale 2 Puffs as instructed every 4 hours as needed for wheezing/shortness of breath. FAMILY HISTORY Problem Relation Age of Onset Hyperlipidemia Mother Diabetes Father type 2 Heart Attack Brother 36 09/2018 Heart Maternal Grandfather may of been CAD Diabetes Paternal Grandfather Prostate Cancer Maternal Uncle ? Alzheimer's Disease No Family History Colon Cancer No Family History Breast Cancer No Family History Ovarian cancer No Family History Uterine Cancer No Family History Hypertension No Family History Kidney Disease No Family History Seizures No Family History Stroke No Family History Thyroid No Family History Social History Tobacco Use Smoking status: Never Smokeless tobacco: Never Substance Use Topics Alcohol use: Yes Comment: very rare Drug use: Never Review of Systems Constitutional: Positive for chills and fever. HENT: Positive for congestion. Negative for sore throat. Respiratory: Positive for cough. Negative for shortness of breath. Gastrointestinal: Negative for abdominal pain, diarrhea and vomiting. Objective BP 148/80 Pulse 114 Temp (!) 38.4 C (101.1 F) Resp 18 Wt 74.3 kg (163 lb 12.8 oz) SpO2 98% BMI 23.50 kg/m Physical Exam Vitals and nursing note reviewed. Constitutional: General: He is not in acute distress. Appearance: Normal appearance. He is not toxic-appearing. HENT: Right Ear: Tympanic membrane and ear canal normal. Left Ear: Tympanic membrane and ear canal normal. Nose: Congestion present. Mouth/Throat: Mouth: Mucous membranes are moist. Eyes: Conjunctiva/sclera: Conjunctivae normal. Cardiovascular: Rate and Rhythm: Normal rate and regular rhythm. Pulmonary: Effort: Pulmonary effort is normal. Breath sounds: Normal breath sounds. No wheezing, rhonchi or rales. Skin: General: Skin is warm and dry. Neurological: Mental Status: He is alert. Assessment and Plan ASSESSMENT/PLAN: 1. Bacterial pneumonia - ICD9: 482.9, ICD10: J15.9 (primary diagnosis) -XR reveals questionable small patchy opacity in lower lobe. -Will cover for pneumonia as patient has had cough for 3 weeks and now new fever. -Patient had stomach pain with doxycycline in the past. Will treat with amoxicillin. -Rx for amoxicillin -Recommend follow-up with PCP in 2 to 3 weeks for reevaluation or sooner if symptoms are worsening or persistent. 2. Acute cough - ICD9: 786.2, ICD10: R05.1 - XR CHEST 2V FRONTAL/LAT-reveals questionable small patchy opacity in lower lobe. -See above. Diagnosis and treatment plan were discussed and questions were answered to the patient's satisfaction. Pt acknowledged understanding of concepts and follow up plan. Specific signs and symptoms that would indicate the need for higher level of care were discussed in detail warranting prompt ER evaluation. DARRELL Yun documented in this encounter [facility] 12-09-2023 History of Presen t illness Narrative RADIOLOGY SERVICE PROGRESS NOTE SERVICE DATE: 05/31/2024 SERVICE TIME: 9:20 AM PATIENT IDENTITY VERIFICATION COMPLETED USING TWO (2) STANDARD IDENTIFIERS: Name and Date of confirmed by patient verbally FALL SCREENING: Has the patient had 2 falls in the last year or 1 fall with injury or currently using an Ambulatory Assistive Device (Walker, Cane, Wheelchair, Crutches, etc.)? No PATIENT GENDER DATA: .male : No ALLERGIES: NA MEDICATIONS REVIEWED: Not applicable PATIENT RELEVANT IMPLANT DATA REVIEWED: Not Applicable PATIENT PRESENTS WITH AN IMPLANTABLE OR ATTACHED BELT SPLICER: No CREATININE: Creatinine Date Value Ref Range Status 12/02/2021 0.82 0.73 - 1.22 mg/dL Final Estimated Glomerular Filtration Rate Date Value Ref Range Status 12/02/2021 117 >=60 mL/min/1.73m Final Comment: Estimated Glomerular Filtration Rate (eGFR) is calculated using the 2020 CKD-EPI creatinine equation. This equation utilizes serum creatinine, sex, and age as parameters. The creatinine assay has traceable calibration to isotope dilution-mass spectrometry. Refer to KDIGO guidelines for clinical interpretation. In patients with unstable renal function, e.g. those with acute kidney injury, the eGFR may not accurately reflect actual GFR. P.O.C.T. RESULTS: N/A May 31, [address] PERFORMED: No IV SITE: Ambulatory: A peripheral IV was started in the Left antecubital site with a Angio cath: 22 gauge. POST EXAM PIV STATUS: Discontinued PROCEDURE TYPE: NM Stress: 10.7 mCi [id number] was administered IV for Rest Imaging at 0755 by JRC2. 30.7 mCi [id number] was administered IV for Stress Imaging at 0918 by QUE. ADMINISTRATION TIME: 917 PATIENT DISCHARGED TO: Ambulatory patient, left NM department area. A Diagnostic radioactive procedure has taken place, with no further precautions necessary other than routine body substance precautions. More information regarding radiation safety can be found using this link: [email or web address] SIGNATURE: RAFAT Green) PATIENT NAME: Dylan Barron DATE: May 31, 2024 TIME: 9:20 AM PAGER/CONTACT #: documented in this encounter [facility] 09-10-2023 Instructions Judith Alexandra, AVRIL.ASSOCIATE PUBLISHER - 09/10/2023 8:42 AM EST ASSESSMENT/PLAN: 1. Sinobronchitis - ICD9: 473.9, 490, ICD10: J32.9, J40 (primary diagnosis) - Will begin treatment with as per antibiotic as written, see orders - Supportive care with plenty of fluids, rest, and analgesia prn. - AMOXICILLIN 875 MG-POTASSIUM CLAVULANATE 125 MG TABLET - PREDNISONE 20 MG TABLET - ALBUTEROL SULFATE HFA 90 MCG/ACTUATION AEROSOL INHALER - INHALATIONAL SPACING DEVICE 2. Otitis media with effusion, left - ICD9: 381.4, ICD10: H65.92 - Will begin treatment with as per antibiotic as written, see orders - AMOXICILLIN 875 MG-POTASSIUM CLAVULANATE 125 MG TABLET - Follow-up with your PCP in 3-5 days if symptoms have not improved or sooner if symptoms worsen - Discussed red flags and need for immediate medical evaluation if any occur. - Discussed supportive care treatment with fluids, rest and analgesia. - Discussed expected course of illness Judith Alexandra APRN.CNP ACUTE BRONCHITIS: You have acute bronchitis. This means the airway passages in your lungs are inflamed. Bronchitis may be caused by viruses or bacteria. Inhaling cigarette smoke will always make it worse. Exposure to irritating chemicals or second hand smoke as well as allergies can contribute to bronchitis. Repeat episodes of bronchitis may cause lifelong lung problems. Acute bronchitis is usually treated with rest, fluids, cough medicine, and possibly antibiotics or inhaled medicine to open up the small airways. It is very important that you avoid smoke and drink increased amounts of fluids. A cool air vaporizer can help thin bronchial secretions. This makes it easier to cough and clear your chest. If you are a cigarette smoker, consider using nicotine gum or skin patches to help you withdraw. Recovery from bronchitis is often slow, but you should start feeling better after 2-3 days of treatment. Please call your doctor or return here if you have any of the following symptoms: Increased fever, chills, or chest pain. Severe shortness of breath or bloody sputum. Do not improve after 3 days of proper treatment. documented in this encounter [facility] 09-10-2023 History of Presen t illness Narrative Subjective Cough Associated symptoms include headaches, myalgias and shortness of breath. Pertinent negatives include no chest pain, no chills, no ear pain and no sore throat. Dylan Barron is a 37 year old male who presents with cough, body aches, chest congestion, sinus pressure, headache for the past week. In the past few days his chest has felt tight and he has some slight shortness of breath with activity. Cough is sometimes productive. He felt feverish yesterday and felt better after taking tylenol Review of Systems Constitutional: Negative for chills, fever and malaise/fatigue. HENT: Positive for congestion and sinus pain. Negative for ear pain and sore throat. Respiratory: Positive for cough, sputum production and shortness of breath. Cardiovascular: Negative for chest pain. Gastrointestinal: Negative for diarrhea, nausea and vomiting. Musculoskeletal: Positive for myalgias. Neurological: Positive for dizziness and headaches. BP 127/84 Pulse 82 Temp 36.7 C (98 F) Resp 18 Wt 75.3 kg (166 lb) SpO2 98% BMI 23.82 kg/m PAST MEDICAL HISTORY Diagnosis Date Chronic nonintractable headache 12/09/2018 may be migraines. Dizziness 12/09/2018 Seeing Neurology, Dr. Obrien in [facility] Family history of early CAD 12/09/2018 Brother at 36 PAST SURGICAL HISTORY Procedure Laterality Date NONE ALLERGIES Doxycycline MEDICATIONS amoxicillin-clavulanate potassium (AUGMENTIN) 875-125 mg per tablet Take 1 tablet by mouth two times a day for 7 days. FAMILY HISTORY Problem Relation Age of Onset Hyperlipidemia Mother Diabetes Father type 2 Heart Attack Brother 36 09/2018 Heart Maternal Grandfather may of been CAD Diabetes Paternal Grandfather Prostate Cancer Maternal Uncle ? Alzheimer's Disease No Family History Colon Cancer No Family History Breast Cancer No Family History Ovarian cancer No Family History Uterine Cancer No Family History Hypertension No Family History Kidney Disease No Family History Seizures No Family History Stroke No Family History Thyroid No Family History Social History Tobacco Use Smoking status: Never Smokeless tobacco: Never Substance Use Topics Alcohol use: Yes Comment: very rare Drug use: Never Objective Physical Exam Vitals and nursing note reviewed. Constitutional: Appearance: Normal appearance. HENT: Right Ear: Tympanic membrane, ear canal and external ear normal. Left Ear: Ear canal and external ear normal. A middle ear effusion is present. Nose: Mucosal edema, congestion and rhinorrhea present. Mouth/Throat: Mouth: Mucous membranes are moist. Pharynx: Oropharynx is clear. Uvula midline. No oropharyngeal exudate or posterior oropharyngeal erythema. Cardiovascular: Rate and Rhythm: Normal rate and regular rhythm. Heart sounds: Normal heart sounds. Pulmonary: Effort: Pulmonary effort is normal. No respiratory distress. Breath sounds: Wheezing (few, scattered) present. No rales. Musculoskeletal: Cervical back: Neck supple. Lymphadenopathy: Cervical: No cervical adenopathy. Skin: General: Skin is warm and dry. Findings: No erythema or rash. Neurological: Mental Status: He is alert. ASSESSMENT/PLAN: 1. Sinobronchitis - ICD9: 473.9, 490, ICD10: J32.9, J40 (primary diagnosis) - Will begin treatment with as per antibiotic as written, see orders - Supportive care with plenty of fluids, rest, and analgesia prn. - AMOXICILLIN 875 MG-POTASSIUM CLAVULANATE 125 MG TABLET - PREDNISONE 20 MG TABLET - ALBUTEROL SULFATE HFA 90 MCG/ACTUATION AEROSOL INHALER - INHALATIONAL SPACING DEVICE 2. Otitis media with effusion, left - ICD9: 381.4, ICD10: H65.92 - Will begin treatment with as per antibiotic as written, see orders - AMOXICILLIN 875 MG-POTASSIUM CLAVULANATE 125 MG TABLET - Follow-up with your PCP in 3-5 days if symptoms have not improved or sooner if symptoms worsen - Discussed red flags and need for immediate medical evaluation if any occur. - Discussed supportive care treatment with fluids, rest and analgesia. - Discussed expected course of illness Judith Alexandra APRN.ASSOCIATE PUBLISHER documented in this encounter [facility] 02-04-2023 Miscellaneous Notes Pt notified of same. Magda Razo LPN Let patient know his lipid panel and blood sugar test were ok. documented in this encounter [facility] 02-03-2023 History of Presen t illness Narrative Chief Complaint Patient presents with: Physical HPI Dylan Barron is a 37 year old male who presents here today for Physical. Office visit - wellness exam Patient with hx of headache's, occasional dizziness as well as those reviewed and addressed below and in ROS. Patient has been doing well no new issues or concerns. Has the occasional headache. No significant migraines. Has not had the dizziness like he had been having in the past. Office visit - wellness exam 01/2022 Patient with hx of headache's, occasional dizziness as well as those reviewed and addressed below and in ROS. Patient has ruben doing well no new issues or concerns. Past medical history, appointments, medications, allergies reviewed. Previous Medical History PAST MEDICAL HISTORY Diagnosis Date Chronic nonintractable headache 12/09/2018 may be migraines. Dizziness 12/09/2018 Seeing Neurology, Dr. Obrien in [facility] Family history of early CAD 12/09/2018 Brother at 36 Previous Surgical History PAST SURGICAL HISTORY Procedure Laterality Date NONE Family History FAMILY HISTORY Problem Relation Age of Onset Hyperlipidemia Mother Diabetes Father type 2 Heart Attack Brother 36 09/2018 Heart Maternal Grandfather may of been CAD Diabetes Paternal Grandfather Prostate Cancer Maternal Uncle ? Alzheimer's Disease No Family History Colon Cancer No Family History Breast Cancer No Family History Ovarian cancer No Family History Uterine Cancer No Family History Hypertension No Family History Kidney Disease No Family History Seizures No Family History Stroke No Family History Thyroid No Family History Patient Allergies ALLERGIES Allergen Reactions Doxycycline GI Upset Stomach pain Current Medications Current Outpatient Medications on File Prior to Visit Medication Sig Cwiwhynvvhhbpsl-Pawvicbjq-VU (BROMFED DM) 2-30-10 mg/5 mL syrup Take 5 mL by mouth four times daily as needed. vqhrdhdcpyNQZRG-oiodft-gowhxlunb (BMX 1:1:1) 1:1:1 liqd Take 5 mL by mouth four times daily. LIDOCAINE VISCOUS 2 % solution Take 15 mL by mouth every 6 hours as needed. benzonatate (TESSALON PERLES) 100 mg capsule Take 2 capsules by mouth three times daily as needed. (Patient not taking: Reported on 08/10/2022) fluticasone (FLONASE) 50 mcg/actuation nasal spray Use 2 Sprays in each nostril once daily. Rinse mouth after use. (Patient not taking: Reported on 06/30/2022) No current facility-administered medications on file prior to visit. Social History Social History Tobacco Use Smoking status: Never Smokeless tobacco: Never Substance Use Topics Alcohol use: Yes Comment: very rare Drug use: Never Review of Symptoms REVIEW OF SYSTEMS GENERAL: No weight loss, malaise or fevers HEENT: Negative for frequent or significant headaches, No changes in hearing or vision, no nose bleeds or other nasal problems NECK: Negative for lumps, goiter, pain and significant neck swelling RESPIRATORY: Negative for cough, hemoptysis, wheezing, COPD, dyspnea or shortness of breath CARDIOVASCULAR: Negative for chest pain, leg swelling, hypertension, CHF or palpitations GI: No nausea, vomiting, or diarrhea and No heartburn or reflux symptoms : No history of dysuria, frequency or blood MUSCULOSKELETAL: Negative for joint pain or swelling, back pain or muscle pain SKIN: Negative for lesions, rash, and itching PSYCH: Negative for sleep disturbance, mood disorder and recent psychosocial stressors HEMATOLOGY/LYMPHOLOGY: Negative for prolonged bleeding, bruising easily or swollen nodes ENDOCRINE: Negative for cold or heat intolerance, polyuria, polydipsia and goiter NEURO: No history of headaches, syncope, paralysis, seizures or tremors EXAM: BP 118/78 Pulse 74 Resp 14 Wt 71.7 kg (158 lb) BMI 22.67 kg/m General Appearance: Well appearing, alert, in no acute distress, well-hydrated, well nourished.. Skin: Skin color, texture, turgor normal, no suspicious rashes or lesions. Head: Normocephalic, no masses, lesions, tenderness or abnormalities. Eyes: Anicteric sclera. Pupils are equally round and reactive to light. Extraocular movements are intact. . Ears: External ears, TM's normal, canals clear. Nose/Sinuses: Nares normal, septum midline, mucosa normal, no drainage or sinus tenderness. Oropharynx: Lips, mucosa, and tongue normal, teeth and gums normal, oropharynx normal. Neck: Supple, no adenopathy; thyroid symmetric, normal size, no bruits. Lungs: Lungs clear to auscultation. No wheezing, rhonchi, rales.. Heart: RRR without murmur, gallop, or rubs. No ectopy. Abdomen: Normal abdominal exam, Abdomen soft, non-tender. Bowel sounds normal. No masses, organomegaly. Extremities: No deformities, edema, skin discoloration, clubbing or cyanosis. Good capillary refill. . Musculoskeletal: Spine range of motion normal. Muscular strength intact, No joint swelling, deformity, or tenderness. Peripheral Pulses: Normal. Neurologic: Gait normal. Reflexes normal and symmetric. Sensation to light touch and crainal nerves 2-12 intact.. Genitalia: Normal, Penis normal. No urethral discharge. Scrotum normal to palpation. No hernia.. Health Maintenance List HEPATITIS B(1 of 3 - 3-dose series) Never done COVID-19 VACCINE(3 - Booster for Pfizer series) due on 04/19/2021 DEPRESSION ASSESSMENT Never done INFLUENZA(Season Ended) due on 04/10/2023 LIPID SCREEN due on 01/31/2027 DTAP,TDAP,TD(3 - Td or Tdap) due on 01/02/2031 HEPATITIS C SCREENING Discontinued HIV SCREENING Discontinued Data reviewed A/P ASSESSMENT/PLAN: 1. Well adult exam - ICD9: V70.0, ICD10: Z00.00 (primary diagnosis) - Counseled on healthy diet and regular exercise - Follow up for annual exam in one year Check - HGB A1C - LIPID PANEL, NONFASTING 2. Chronic nonintractable headache, unspecified headache type - ICD9: 784.0, ICD10: R51.9, G89.29 - very mild without need for preventative Tx. 3. Encounter for screening for diabetes mellitus - ICD9: V77.1, ICD10: Z13.1 Check - HGB A1C 4. Encounter for lipid screening for cardiovascular disease - ICD9: V77.91, V81.2, ICD10: Z13.220, Z13.6 Check - LIPID PANEL, NONFASTING F/u in a year for WAE sooner if issues. Carlotn Katz MD documented in this encounter [facility] 08-10-2022 Miscellaneous Notes Addended by: PORFIRIO COPELAND on: 08/10/2022 11:55 AM Modules accepted: Orders documented in this encounter [facility] 08-10-2022 Instructions Porfirio Copeland APRN.CNP - 08/10/2022 11:15 AM EST [facility] PATIENT INFO INFLUENZA INTRODUCTION Influenza (commonly called the flu) is a highly contagious illness that can occur in children or adults of any age. It occurs more often in the winter months because people spend more time in close contact with one another. The flu is spread easily from ojhjxr-gi-wlotby by coughing, sneezing, or touching surfaces. Every year, complications of the flu require more than 200,000 people in the [place] to be hospitalized. Serious illness is more likely in the very young, older adults, women, and people who have certain health problems such as asthma or other forms of lung disease. There have been several widespread flu outbreaks (called pandemics), which led to the deaths of many people worldwide. These outbreaks occurred when new strains of influenza viruses formed (often from pigs or birds) and humans became infected because they had no immunity to these viruses. FLU SYMPTOMS Symptoms of seasonal flu can vary from person to person, but usually include: Fever (temperature higher than 100 F or 37.8 C) Headache and muscle aches Fatigue Cough and sore throat may also be present People with the flu usually have a fever for two to five days. This is different than fever caused by other upper respiratory viruses, which usually resolve after 24 to 48 hours. Some people have cold-like symptoms (runny nose, sore throat) during the flu while others have fever and muscle aches. Flu symptoms usually improve over two to five days, although the illness may last for a week or more. Weakness and fatigue may persist for several weeks Flu complications -- Complications of influenza occur in some people; pneumonia is the most common complication. Pneumonia is a serious infection of the lungs, and is more likely to occur in people over the age of 65, people who live in assisted care facilities (nursing homes), and those with other illnesses such as diabetes or conditions affecting the heart or lungs. FLU DIAGNOSIS Influenza is usually diagnosed based on symptoms (fever, cough and muscle aches). Lab testing for influenza is performed in certain cases, such as during a new influenza outbreak in a community. FLU TREATMENT When to seek help -- Most people with the flu recover within one to two weeks without treatment. However, serious complications of the flu can occur. Call your doctor or nurse immediately if: You feel short of breath or have trouble breathing You have pain or pressure in your chest or stomach You have signs of being dehydrated, such as dizziness when standing or not passing urine You feel confused You cannot stop vomiting or you cannot drink enough fluids There are several groups of people who are at increased risk for flu complications. These include women, young children (<5 years of age, and especially <2 years of age), people ?65 years of age, and people with certain diseases such as chronic lung disease (such as asthma), heart disease, diabetes, immunosuppressing conditions (such as HIV infection or transplantation), and some other diseases. If you or your child has flu symptoms and is at increased risk of flu complications, you should call your healthcare provider. Treat symptoms -- Treating the symptoms of influenza can help you to feel better, but will not make the flu go away faster. Rest until the flu is fully resolved, especially if the illness has been severe Fluids -- Drink enough fluids so that you do not become dehydrated. One way to space physicist if you are drinking enough is to look at the color of your urine. Normally, urine should be light yellow to nearly colorless. If you are drinking enough, you should pass urine every three to five hours. Acetaminophen (such as Tylenol and other brands) can relieve fever, headache, and muscle aches. Aspirin, and medicines that include aspirin (eg, bismuth subsalicylate; PeptoBismol), are not recommended for children under 18 because aspirin can lead to a serious disease called Bev syndrome. Cough medicines are not usually helpful; cough usually resolves without treatment. We do not recommend cough or cold medicine for children under age six years. Antiviral treatment -- Antiviral medicines can be used to treat or prevent influenza. When used as a treatment, the medicine does not eliminate flu symptoms, although it can reduce the severity and duration of symptoms by about one day. Not every person with influenza needs an antiviral medicine; the decision is based upon your risk of developing complications of influenza. Antiviral treatment is most effective for seasonal influenza when it is taken within the first 48 hours of flu symptoms. Side effects -- Zanamivir and oseltamivir can cause mild side effects, including nausea and vomiting; zanamivir, which is inhaled, can cause difficulty breathing in some cases. Most people are able to continue the medicine despite the side effects. Antibiotics -- Antibiotics are NOT useful for treating viral illnesses such as influenza. Antibiotics should only used if there is a bacterial complication of the flu such as bacterial pneumonia, ear infection, or sinusitis. Antibiotics can cause side effects and lead to development of antibiotic resistance. documented in this encounter [facility] 08-10-2022 History of Presen t illness Narrative This note was created using Optimalize.meriter. Subjective Dylan Barron is a 36 year old male. HPI by patient: Dylan is a 36 year old presenting to the office with the complaint of URI Started approximately 4-5 days ago Associated symptoms include sore throat, tongue also feels like its burning, congested, hoarseness, coughing Denies any other concerns Vaccinated for influenza: no Covid Immunization Dates Overdue - COVID-19 VACCINE (3 - Booster for Pfizer series) Overdue since 04/19/2021 02/22/2021 Imm Admin: COVID-19 vaccine, age 12+ yr (PFIZER-BIONTECH - PURPLE TOP) 02/01/2021 Imm Admin: COVID-19 vaccine, age 12+ yr (PFIZER-BIONTECH - PURPLE TOP) 01/02/2021 Postponed until 04/10/2021 by Carlton Katz MD (Currently Scheduled) Personal history of Covid: no Flu/RSV contacts: no Strep contacts: no Sick contacts: yes, kids are sick Covid + contacts: no Travel in the last 14 days: no Smoking history/second hand smoke: no OTC IBU and tylenol No antibiotic use in the last 60 days. ALLERGIES Doxycycline GI Upset Comment:Stomach pain Family History Reviewed Including Cardiac Diseases, Psychiatric Diseases, & Substance Abuse Problem: Hyperlipidemia Relation: Mother Age of Onset: (Not Specified) Problem: Diabetes Relation: Father Age of Onset: (Not Specified) Comment: type 2 Problem: Heart Attack Relation: Brother Age of Onset: 36 Comment: 09/2018 Problem: Heart Relation: Maternal Grandfather Age of Onset: (Not Specified) Comment: may of been CAD Problem: Diabetes Relation: Paternal Grandfather Age of Onset: (Not Specified) Problem: Prostate Cancer Relation: Maternal Uncle Age of Onset: (Not Specified) Comment: ? Problem: Alzheimer's Disease Relation: No Family History Age of Onset: (Not Specified) Problem: Colon Cancer Relation: No Family History Age of Onset: (Not Specified) Problem: Breast Cancer Relation: No Family History Age of Onset: (Not Specified) Problem: Ovarian cancer Relation: No Family History Age of Onset: (Not Specified) Problem: Uterine Cancer Relation: No Family History Age of Onset: (Not Specified) Problem: Hypertension Relation: No Family History Age of Onset: (Not Specified) Problem: Kidney Disease Relation: No Family History Age of Onset: (Not Specified) Problem: Seizures Relation: No Family History Age of Onset: (Not Specified) Problem: Stroke Relation: No Family History Age of Onset: (Not Specified) Problem: Thyroid Relation: No Family History Age of Onset: (Not Specified) Social History Tobacco Use Smoking status: Never Smokeless tobacco: Never Alcohol use: Yes Comment: very rare Drug use: Never Review of Systems Constitutional: Positive for chills, fatigue and fever. HENT: Positive for congestion, postnasal drip, rhinorrhea and sore throat. Negative for ear pain. Respiratory: Positive for cough. Cardiovascular: Negative for chest pain. Musculoskeletal: Positive for myalgias. Allergic/Immunologic: Negative for immunocompromised state. Neurological: Negative for headaches. Hematological: Negative for adenopathy. Objective BP 122/72 Pulse 92 Temp 36.2 C (97.2 F) Resp 16 Wt 77.1 kg (170 lb) SpO2 99% BMI 24.39 kg/m Physical Exam Vitals and nursing note reviewed. Constitutional: Appearance: He is well-developed. HENT: Right Ear: Tympanic membrane and ear canal normal. Left Ear: Tympanic membrane and ear canal normal. Nose: Congestion and rhinorrhea present. Mouth/Throat: Mouth: Mucous membranes are moist. Pharynx: Oropharynx is clear. Uvula midline. Posterior oropharyngeal erythema present. Eyes: Conjunctiva/sclera: Conjunctivae normal. Pupils: Pupils are equal, round, and reactive to light. Cardiovascular: Rate and Rhythm: Normal rate and regular rhythm. Heart sounds: Normal heart sounds. Pulmonary: Effort: Pulmonary effort is normal. Breath sounds: Normal breath sounds. Lymphadenopathy: Cervical: No cervical adenopathy. Skin: General: Skin is warm and dry. Neurological: Mental Status: He is alert and oriented to person, place, and time. Assessment and Plan ASSESSMENT/PLAN: 1. Sore throat - ICD9: 462, ICD10: J02.9 (primary diagnosis) - suspect viral - Rapid Strep negative in the office today - Discussed supportive care treatment with fluids, rest and analgesia. - STREP A MOLECULAR (POC) - 2019 CORONAVIRUS - ROUTINE FLU A/B + RSV - BROMPHENIRAMINE-PSEUDOEPHEDRINE- DM 2 MG-30 MG-10 MG/5 ML ORAL SYRUP - [id number] E ([facility]) - PREDNISONE 10 MG TABLET 2. Viral URI with cough - ICD9: 465.9, ICD10: J06.9 - Discussed viral etiology and rationale for treatment. - Symptomatic treatment with prn analgesia - Supportive care with fluids and rest - 2019 CORONAVIRUS - ROUTINE FLU A/B + RSV - BROMPHENIRAMINE-PSEUDOEPHEDRINE- DM 2 MG-30 MG-10 MG/5 ML ORAL SYRUP - PREDNISONE 10 MG TABLET Porfirio Copeland APRN.ENMANUEL Medical Decision Making: Problems: Moderate: New problem with uncertain prognosis Data: Unique test(s) ordered: 3+ Risk: Moderate: Drug management Medical Decision Making Level: 4 - Moderate This patient encounter involved the screening or treatment of novel coronavirus infection (COVID-19). documented in this encounter [facility] 07-07-2022 Miscellaneous Notes This patient gave consent to this Medical Advice Message and is aware that it may result in a bill to their insurance, as well as the possibility of receiving a bill for a copay and/or deductible. They are an established patient, but are not seeking information exclusively about a problem treated during an in person or video visit in the last seven days. I did not recommend an in person or video visit within seven days of my reply. See the Sosei message reply for my assessment and plan. I spent a total of 7 minutes reviewing the patient's prior medical records and current request for medical advice, prescribing medications or ordering tests (if applicable), replying to the patient, and documenting the encounter. The following approved medication requests have been transmitted electronically. Requested Prescriptions Signed Prescriptions Disp Refills amoxicillin-clavulanic acid (AUGMENTIN) 875-125 mg per tablet 14 tablet 0 Sig: Take 1 tablet by mouth twice daily for 7 days. Carlton Katz MD documented in this encounter [facility] 06-30-2022 History of Presen t illness Narrative This note was created using NoteWriter. Subjective Dylan Barron is a 36 year old male. HPI Patient presents with cough over the past month. He was seen at the beginning of the illness when he really just had a sore throat and congestion and given prednisone. He states the cough has progressed and now he is up at night coughing. He denies history of asthma. He was never a smoker. States he has some mild shortness of breath. No wheezing. Review of Systems Constitutional: Negative. HENT: Negative. Respiratory: Positive for cough and shortness of breath. Negative for wheezing. Cardiovascular: Negative. Gastrointestinal: Negative. Genitourinary: Negative. Musculoskeletal: Negative. All other systems reviewed and are negative. PAST MEDICAL HISTORY Diagnosis Date Chronic nonintractable headache 12/09/2018 may be migraines. Dizziness 12/09/2018 Seeing Neurology, Dr. Obrien in [facility] Family history of early CAD 12/09/2018 Brother at 36 Current Outpatient Medications Medication Sig Dispense Refill predniSONE (DELTASONE) 20 mg tablet Take 2 tablets by mouth once daily for 5 days. 10 tablet 0 benzonatate (TESSALON PERLES) 100 mg capsule Take 2 capsules by mouth three times daily as needed. 30 capsule 0 codeine-guaiFENesin (GUAIFENESIN AC) 10-100 mg/5 mL syrup Take 10 mL by mouth three times daily as needed (as needed for cough at night, will cause sedation. do not miss with tessalon) for up to 5 days. 150 mL 0 doxycycline (VIBRA-TABS) 100 mg tablet Take 1 tablet by mouth twice daily for 7 days. 14 tablet 0 fluticasone (FLONASE) 50 mcg/actuation nasal spray Use 2 Sprays in each nostril once daily. Rinse mouth after use. (Patient not taking: Reported on 06/30/2022) 1 Each 0 No current facility-administered medications for this visit. PAST SURGICAL HISTORY Procedure Laterality Date NONE FAMILY HISTORY Problem Relation Age of Onset Hyperlipidemia Mother Diabetes Father type 2 Heart Attack Brother 36 09/2018 Heart Maternal Grandfather may of been CAD Diabetes Paternal Grandfather Prostate Cancer Maternal Uncle ? Alzheimer's Disease No Family History Colon Cancer No Family History Breast Cancer No Family History Ovarian cancer No Family History Uterine Cancer No Family History Hypertension No Family History Kidney Disease No Family History Seizures No Family History Stroke No Family History Thyroid No Family History Social History Tobacco Use Smoking status: Never Smokeless tobacco: Never Substance Use Topics Alcohol use: Yes Comment: very rare Drug use: Never Objective BP 120/76 Pulse 76 Temp 36.6 C (97.9 F) Resp 18 Wt 75.9 kg (167 lb 6.4 oz) SpO2 99% BMI 24.02 kg/m Physical Exam Vitals reviewed. Constitutional: Appearance: Normal appearance. HENT: Head: Normocephalic and atraumatic. Right Ear: Tympanic membrane, ear canal and external ear normal. Left Ear: Tympanic membrane, ear canal and external ear normal. Nose: Nose normal. Mouth/Throat: Mouth: Mucous membranes are moist. Pharynx: Oropharynx is clear. Cardiovascular: Rate and Rhythm: Normal rate and regular rhythm. Heart sounds: Normal heart sounds. Pulmonary: Effort: Pulmonary effort is normal. Breath sounds: Normal breath sounds. Musculoskeletal: Cervical back: Neck supple. Skin: General: Skin is warm and dry. Neurological: General: No focal deficit present. Mental Status: He is alert. Assessment and Plan ASSESSMENT/PLAN: 1. Viral bronchitis - ICD9: 466.0, ICD10: J20.8 Chest xray clear on my read, will call later on radiology read. Prednisone, tessalon during day. May take dose of robitussin ac for cough at night. Follow up with pcp if not improving. - XR CHEST 2V FRONTAL/LAT - CODEINE 10 MG-GUAIFENESIN 100 MG/5 ML ORAL LIQUID Carolina Camargo PA-C documented in this encounter [facility] 06-30-2022 Miscellaneous Notes I called and discussed the mild opacity in the left lower lung on chest x-ray per radiology read. We will add doxycycline to other prescriptions. Recommended follow-up with PCP if not improving over the next 5 to 7 days. Patient agreeable. documented in this encounter [facility] 06-30-2022 History of Presen t illness Narrative Radiology Service Progress Note PATIENT NAME: Dylan Barron DATE OF SERVICE: June 30, 2022 TIME: 12:41 PM PATIENT IDENTITY VERIFICATION COMPLETED USING TWO (2) IDENTIFIERS: Name and Date of confirmed by patient verbally. FALL SCREENING: Has the patient had 2 falls in the last year or 1 fall with injury or currently using an Ambulatory Assistive Device (Walker, Cane, Wheelchair, Crutches, etc.)? No PATIENT GENDER DATA: Male PATIENT RELEVANT IMPLANT DATA REVIEWED: Not Applicable RADIOLOGY DEPARTMENT: General X-ray: Exam(s) Completed: Chest X-Ray PERIPHERAL IV DATA: Not applicable SIGNED BY: RT Pushpa(R) June 30, 2022 12:41 PM documented in this encounter [facility] 06-07-2022 Instructions Luigi Saeed APRN.ASSOCIATE PUBLISHER - 06/07/2022 9:20 AM EDT RESPIRATORY INFECTION GENERAL INFORMATION: An upper respiratory tract infection, or cold, is a viral infection of the airway passages. It can be caused by any one of almost 200 different viruses. Common symptoms include a runny or stuffy nose, sneezing, watery eyes, sore throat, cough, and slight fever. Colds are contagious, especially during the first 3 or 4 days and cannot be cured by antibiotics. They are spread by coughs, sneezes, and direct contact, especially [id number]-agnu. A respiratory tract infection usually clears up in a few days, but some people may be sick for a week or two. INSTRUCTIONS: 1. Be careful not to blow your nose too hard because this may cause a nosebleed. 2. Use a cool-mist humidifier (vaporizer) to increase air moisture. This will make it easier for you to breathe. Do not use hot steam. 3. Rest as much as possible and get plenty of sleep. 4. Wash your hands often, especially after you blow your nose. Cover your mouth and nose with a tissue when you sneeze or cough. 5. Drink plenty of clear fluids (8 glasses a day) such as water, fruit juice, tea, clear soups, and carbonated beverages. CONTACT YOUR DOCTOR IF : 1. Your fever lasts more than 3 days. 2. You have a sore throat that gets worse or you see white or yellow spots in your throat. 3. Your cough gets worse or lasts more than 10 days. 4. You develop a rash anywhere on your skin. 5. You have an earache or a headache. 6. You have thick greenish or yellowish discharge from your nose. RETURN IMMEDIATELY IF: 1. You cough up thick yellow, green, thompson, or bloody sputum. 2. You have difficulty breathing, pain in your chest, or your skin or nails look thompson or blue. 3. You have shaking chills or a temperature over 102 F (39 C). documented in this encounter [facility] 06-07-2022 History of Presen t illness Narrative Subjective HPI HPI Dylan Barron is a 36 year old male who presents today for CC of cough, ear pressure, st, voice change. This started 2 days ago. Has tried otc medication for relief. Symptoms are worsened by nothing. Risk factors sick exposures at home. .Patient presents with: Cough: Cough, ear pressure and lost voice x 2 days PAST MEDICAL HISTORY Diagnosis Date Chronic nonintractable headache 12/09/2018 may be migraines. Dizziness 12/09/2018 Seeing Neurology, Dr. Obrien in [facility] Family history of early CAD 12/09/2018 Brother at 36 PAST SURGICAL HISTORY Procedure Laterality Date NONE ALLERGIES Patient has no known allergies. MEDICATIONS No prescriptions on file. FAMILY HISTORY Problem Relation Age of Onset Hyperlipidemia Mother Diabetes Father type 2 Heart Attack Brother 36 09/2018 Heart Maternal Grandfather may of been CAD Diabetes Paternal Grandfather Prostate Cancer Maternal Uncle ? Alzheimer's Disease No Family History Colon Cancer No Family History Breast Cancer No Family History Ovarian cancer No Family History Uterine Cancer No Family History Hypertension No Family History Kidney Disease No Family History Seizures No Family History Stroke No Family History Thyroid No Family History Social History Tobacco Use Smoking status: Never Smokeless tobacco: Never Substance Use Topics Alcohol use: Yes Comment: very rare Drug use: Never Review of Systems Constitutional: Negative for fever. HENT: Positive for congestion, ear pain and sore throat. Negative for ear discharge and nosebleeds. Respiratory: Positive for cough. Negative for shortness of breath and wheezing. Cardiovascular: Negative for chest pain. Gastrointestinal: Negative for diarrhea and vomiting. Musculoskeletal: Negative for neck pain. Skin: Negative for itching and rash. Objective Blood pressure 132/82, pulse 97, temperature 36.7 C (98 F), temperature source Tympanic, resp. rate 16, weight 75.8 kg (167 lb 3.2 oz), SpO2 99 %. Physical Exam Constitutional: General: He is not in acute distress. Appearance: He is not toxic-appearing or diaphoretic. HENT: Head: Normocephalic and atraumatic. Right Ear: Hearing, ear canal and external ear normal. A middle ear effusion (clear/bubbles) is present. Left Ear: Hearing, ear canal and external ear normal. A middle ear effusion (clear/bubbles) is present. Nose: Nose normal. Mouth/Throat: Pharynx: Uvula midline. Posterior oropharyngeal erythema present. No pharyngeal swelling, oropharyngeal exudate or uvula swelling. Eyes: General: Lids are normal. No scleral icterus. Right eye: No discharge. Left eye: No discharge. Conjunctiva/sclera: Conjunctivae normal. Pupils: Pupils are equal, round, and reactive to light. Neck: Trachea: Trachea normal. Cardiovascular: Rate and Rhythm: Normal rate and regular rhythm. Heart sounds: Normal heart sounds. Pulmonary: Effort: Pulmonary effort is normal. Breath sounds: Normal breath sounds. Musculoskeletal: Cervical back: Normal range of motion and neck supple. Lymphadenopathy: Cervical: Cervical adenopathy present. Right cervical: Superficial cervical adenopathy present. Left cervical: Superficial cervical adenopathy present. Skin: Findings: No rash. Neurological: Mental Status: He is alert and oriented to person, place, and time. ASSESSMENT/PLAN: 1. URI, acute - ICD9: 465.9, ICD10: J06.9 (primary diagnosis) - Discussed viral etiology and rationale for treatment. - Symptomatic treatment with prn analgesia - Supportive care with fluids and rest - Follow up in 3-5 days if symptoms persist or sooner if worsening of symptoms - PREDNISONE 20 MG TABLET - FLUTICASONE PROPIONATE 50 MCG/ACTUATION NASAL SPRAY,SUSPENSION 2. Sore throat - ICD9: 462, ICD10: J02.9 - suspect viral - Alere Strep Test neg, no culture pending - Discussed supportive care treatment with fluids, rest and analgesia. - The patient should follow up in 3-5 days if symptoms persist or worsen - ALERE STREP A TEST (AG) 3. ETD (Eustachian tube dysfunction), bilateral - ICD9: 381.81, ICD10: H69.83 -use medication as prescribed -follow up if symptoms persist, worsen, change - PREDNISONE 20 MG TABLET - FLUTICASONE PROPIONATE 50 MCG/ACTUATION NASAL SPRAY,SUSPENSION Agrees to plan Luigi Saeed APRN.ENMANUEL documented in this encounter [facility] 02-03-2022 Miscellaneous Notes Patient active MyChart. Patient notified via Sosei message. Vandana Resendez MA Let patient know lipid panel was ok except for slightly elevated Trigs. Work on decreased fat in diet. His LDL was better at 117 (goal<130 and was 143). HDL good at 42. documented in this encounter [facility] 01-31-2022 History of Presen t illness Narrative Chief Complaint Patient presents with: Physical HPI Dylan Barron is a 36 year old male who presents here today for Physical. Patient with hx of headache's, occasional dizziness as well as those reviewed and addressed below and in ROS. Patient has ruben doing well no new issues or concerns. Past medical history, appointments, medications, allergies reviewed. Previous Medical History PAST MEDICAL HISTORY Diagnosis Date Chronic nonintractable headache 12/09/2018 may be migraines. Dizziness 12/09/2018 Seeing Neurology, Dr. Obrien in [facility] Family history of early CAD 12/09/2018 Brother at 36 Previous Surgical History PAST SURGICAL HISTORY Procedure Laterality Date NONE Family History FAMILY HISTORY Problem Relation Age of Onset Hyperlipidemia Mother Diabetes Father type 2 Heart Attack Brother 36 09/2018 Heart Maternal Grandfather may of been CAD Diabetes Paternal Grandfather Prostate Cancer Maternal Uncle ? Alzheimer's Disease No Family History Colon Cancer No Family History Breast Cancer No Family History Ovarian cancer No Family History Uterine Cancer No Family History Hypertension No Family History Kidney Disease No Family History Seizures No Family History Stroke No Family History Thyroid No Family History Patient Allergies ALLERGIES No Known Allergies Current Medications No current outpatient medications on file prior to visit. No current facility-administered medications on file prior to visit. Social History Social History Tobacco Use Smoking status: Never Smoker Smokeless tobacco: Never Used Substance Use Topics Alcohol use: Yes Comment: very rare Drug use: Never Review of Symptoms REVIEW OF SYSTEMS GENERAL: No weight loss, malaise or fevers HEENT: Negative for frequent or significant headaches, Not getting the headache's like he had been , No changes in hearing or vision, no nose bleeds or other nasal problems. NECK: Negative for lumps, goiter, pain and significant neck swelling RESPIRATORY: Negative for cough, hemoptysis, wheezing, COPD, dyspnea or shortness of breath CARDIOVASCULAR: Negative for chest pain, leg swelling, hypertension, CHF or palpitations GI: No nausea, vomiting, or diarrhea and No heartburn or reflux symptoms : No history of dysuria, blood MUSCULOSKELETAL: Negative for joint pain or swelling, back pain or muscle pain SKIN: Negative for lesions, rash, and itching PSYCH: Negative for sleep disturbance, mood disorder and recent psychosocial stressors HEMATOLOGY/LYMPHOLOGY: Negative for prolonged bleeding, bruising easily or swollen nodes ENDOCRINE: Negative for cold or heat intolerance, polyuria, polydipsia and goiter NEURO: No history of headaches, syncope, paralysis, seizures or tremors EXAM: BP 116/78 (BP Site: Left Arm, BP Position: Sitting, BP Cuff Size: Regular Adult) Pulse 64 Resp 18 Ht 177.8 cm (5' 10) Wt 74.8 kg (165 lb) BMI 23.68 kg/m General Appearance: Well appearing, alert, in no acute distress, well-hydrated, well nourished.. Skin: Skin color, texture, turgor normal, no suspicious rashes or lesions. Head: Normocephalic, no masses, lesions, tenderness or abnormalities. Eyes: Anicteric sclera. Pupils are equally round and reactive to light. Extraocular movements are intact. Ears: External ears normal, canals clear. Nose/Sinuses: Nares normal, septum midline, mucosa normal, no drainage or sinus tenderness. Neck: Supple, no adenopathy; thyroid symmetric, normal size, no bruits. Lungs: Lungs clear to auscultation. No wheezing, rhonchi, rales.. Heart: RRR without murmur, gallop, or rubs. No ectopy. Abdomen: Normal abdominal exam, Abdomen soft, non-tender. Bowel sounds normal. No masses, organomegaly. Extremities: No deformities, edema, skin discoloration. Musculoskeletal: Spine range of motion normal. Muscular strength intact, No joint swelling, deformity, or tenderness. Peripheral Pulses: Normal. Neurologic: Gait normal. Reflexes normal and symmetric. Sensation to light touch and crainal nerves 2-12 intact.. Genitalia: Normal, Penis normal. No urethral discharge. Scrotum normal to palpation. No hernia.. Health Maintenance List DEPRESSION SCREENING due on 12/10/2019 COVID-19 VACCINE(3 - Booster for Pfizer series) due on 07/25/2021 LIPID SCREEN due on 01/02/2026 DTAP,TDAP,TD(3 - Td or Tdap) due on 01/02/2031 INFLUENZA Completed HEPATITIS C SCREENING Discontinued HIV SCREENING Discontinued Data reviewed Component Latest Ref Rng & Units 01/02/2021 12/02/2021 WBC 3.70 - 11.00 k/uL 7.16 RBC 4.20 - 6.00 m/uL 5.13 Hemoglobin 13.0 - 17.0 g/dL 15.3 Hematocrit 39.0 - 51.0 % 44.8 MCV 80.0 - 100.0 fL 87.3 MCH 26.0 - 34.0 pg 29.8 MCHC 30.5 - 36.0 g/dL 34.2 RDW-CV 11.5 - 15.0 % 11.4 (L) Platelet Count 150 - 400 k/uL 200 MPV 9.0 - 12.7 fL 10.9 Neut% % 66.6 Abs Neut (ANC) 1.45 - 7.50 k/uL 4.77 Lymph% % 24.0 Abs Lymph 1.00 - 4.00 k/uL 1.72 Gilchrist% % 8.0 Abs Gilchrist <0.87 k/uL 0.57 Eosin% % 0.7 Abs Eosin <0.46 k/uL 0.05 Baso% % 0.4 Abs Baso <0.11 k/uL 0.03 Immature Gran % % 0.3 IMMATURE GRANS (ABS) <0.10 k/uL <0.03 NRBC /100 WBC 0.0 Absolute nRBC <0.01 k/uL <0.01 DTYPE Auto Protein, Total 6.3 - 8.0 g/dL 7.0 Albumin 3.9 - 4.9 g/dL 4.1 Calcium 8.5 - 10.2 mg/dL 9.3 Bilirubin, Total 0.2 - 1.3 mg/dL 0.7 Alkaline Phosphatase 38 - 113 U/L 81 AST 14 - 40 U/L 28 ALT 10 - 54 U/L 28 Glucose 74 - 99 mg/dL 84 BUN 9 - 24 mg/dL 16 Creatinine 0.73 - 1.22 mg/dL 0.82 Sodium 136 - 144 mmol/L 138 Potassium 3.7 - 5.1 mmol/L 3.9 Chloride 97 - 105 mmol/L 102 CO2 22 - 30 mmol/L 28 Anion Gap 9 - 18 mmol/L 8 (L) eGFR >=60 mL/min/1.73m 117 Total Cholesterol, Nonfasting <200 mg/dL 212 (H) Triglycerides, Nonfasting <150 mg/dL 113 HDL Cholesterol, Nonfasting >39 mg/dL 46 LDL Cholesterol, Nonfasting <100 mg/dL 143 (H) Non HDL Cholesterol, Nonfasting <130 mg/dL 166 (H) VLDL Cholesterol, Nonfasting <30 mg/dL 23 Total Chol/HDL Ratio, Nonfasting <5.10 mg/dL 4.61 LDL/HDL Ratio, Nonfasting <2.54 mg/dL 3.11 (H) Hemoglobin A1C 4.3 - 5.6 % 5.6 Estimated Average Glucose mg/dL 114 TSH 0.270 - 4.200 mIU/L 2.450 Free T4 0.9 - 1.7 ng/dL 1.2 Vitamin D 25 Hydroxy 31.0 - 80.0 ng/mL 49.8 Vitamin B12 232-1,245 pg/mL 784 Folate >4.7 ng/mL 12.5 A/P ASSESSMENT/PLAN: 1. Well adult exam - ICD9: V70.0, ICD10: Z00.00 (primary diagnosis) - Counseled on healthy diet and regular exercise - Follow up for annual exam in one year 2. Chronic nonintractable headache, unspecified headache type - ICD9: 784.0, ICD10: R51.9, G89.29 - Seems to have resolved with change in jobs. 3. Family history of early CAD - ICD9: V17.3, ICD10: Z82.49 - Patient has been doing well. Will monitor 4. Encounter for lipid screening for cardiovascular disease - ICD9: V77.91, V81.2, ICD10: Z13.220, Z13.6 Check - LIPID PANEL, NONFASTING f/u in a year or sooner if issues Carlton Katz MD documented in this encounter [facility] 12-02-2021 Instructions Maritza Betts APRN.ASSOCIATE PUBLISHER - 12/02/2021 9:40 AM EDT 1.) Get labs completed today. 2.) Schedule at home sleep study. 3.) ECG: Normal 4.) Check with insurance for coverage for Janraino monitor (heart monitor) 5.) Follow up pending test results. documented in this encounter [facility] 12-02-2021 History of Presen t illness Narrative This is a 36 year old male who presents today with: Patient presents with: Blood Sugar Problem HISTORY OF PRESENT ILLNESS: Dylan Barron is a 36 year old male. Patient presents with: Blood Sugar Problem Patient of Dr. Katz to discuss concerns for sugar. Was seen in urgent care 11/28/2021 for grogginess, headache, and fatigue. Some visual disturbances but refers that email production consultant has cleared him 5-6 months ago. Refer he has seen neuro in the past and MRI of brain was normal. Will feel off balanced at times. No LOC or dizziness, chest pain. Saw Cardiology ( Aiden Carpio in [facility] about 3 years after brother passed from heart attack at 36 yo. Increased fatigue with daytime sleepiness. Refers he does snore. PAST MEDICAL HISTORY: PAST MEDICAL HISTORY Diagnosis Date Chronic nonintractable headache 12/09/2018 may be migraines. Dizziness 12/09/2018 Seeing Neurology, Dr. Obrien in [facility] Family history of early CAD 12/09/2018 Brother at 36 PAST SURGICAL HISTORY Procedure Laterality Date NONE ALLERGIES Patient has no known allergies. MEDICATIONS No current outpatient medications on file. No current facility-administered medications for this visit. FAMILY HISTORY Problem Relation Age of Onset Hyperlipidemia Mother Diabetes Father type 2 Heart Attack Brother 36 09/2018 Heart Maternal Grandfather may of been CAD Diabetes Paternal Grandfather Prostate Cancer Maternal Uncle ? Alzheimer's Disease No Family History Colon Cancer No Family History Breast Cancer No Family History Ovarian cancer No Family History Uterine Cancer No Family History Hypertension No Family History Kidney Disease No Family History Seizures No Family History Stroke No Family History Thyroid No Family History Social History Tobacco Use Smoking status: Never Smoker Smokeless tobacco: Never Used Substance Use Topics Alcohol use: Yes Comment: very rare Drug use: Never REVIEW OF SYSTEMS GENERAL: + Fatigue/ Day time Sleepiness HEENT: Negative for frequent or significant headaches, No changes in hearing or vision. NECK: Negative for lumps, goiter, pain and significant neck swelling RESPIRATORY: Negative for cough, hemoptysis, wheezing, dyspnea or shortness of breath CARDIOVASCULAR: Negative for chest pain, leg swelling, orthopnea, or palpitations GI: No nausea, vomiting, or diarrhea/constipation. No hematochezia/melena. No heartburn or reflux symptoms. : No history of dysuria, frequency or incontinence MUSCULOSKELETAL: Negative for joint pain or swelling. SKIN: Negative for lesions, rash, and itching ENDOCRINE: Negative for cold or heat intolerance, polyuria, polydipsia and goiter NEURO: + Off balance MOOD: Negative for depression, anxiety, or suicidal ideation. EXAM: BP 128/84 Pulse 62 Resp 18 Wt 77.5 kg (170 lb 12.8 oz) BMI 24.73 kg/m PHYSICAL EXAM: General Appearance: Well appearing, alert, in no acute distress, well-hydrated, well nourished. Skin: Skin color, texture, turgor normal, no suspicious rashes or lesions. Head: Normocephalic, no masses, lesions, tenderness or abnormalities. Eyes: Anicteric sclera. Extraocular movements are intact. Neck: Supple, no adenopathy; thyroid symmetric, normal size, no bruits. Lungs: Lungs clear to auscultation. No wheezing, rhonchi, rales. Heart: RRR without murmur, gallop, or rubs. No ectopy. Extremities: No deformities, edema, skin discoloration, clubbing or cyanosis. Good capillary refill. Peripheral Pulses: Normal, Capillary refill <2secs, strong peripheral pulses, Pulses palpable. Neurologic: Gait normal. Reflexes normal and symmetric. Sensation grossly intact. ECG: Normal sinus rhythm, no ST elevation or depression, or ectopy. ASSESSMENT/PLAN: 1. Fatigue, unspecified type - ICD9: 780.79, ICD10: R53.83 (primary diagnosis) - Get the following labs completed to further evaluate any acute causes of his symptoms. - CBC + DIFF - COMP METABOLIC PANEL - TSH BLD - T4 FREE/FREE THYROX - VITAMIN D 25 HYDROXY - VITAMIN B12 BLOOD - FOLATE SERUM - HOME SLEEP APNEA TEST (HSAT) 2. Dizziness - ICD9: 780.4, ICD10: R42 - ECG today was WNL, no ST elevation/depression or ectopy. - Pending lab results, discussed with patient about completing a at home Holter monitor. - Records release signed today to get cardiac test results from center medical director. - ECG COMPLETE 3. Screening for diabetes mellitus - ICD9: V77.1, ICD10: Z13.1 - HGB A1C Follow-up pending test results or sooner as needed. Discussed treatment plan and patient voices understanding. Patient's questions answered appropriately. Medications and potential side effects were discussed and patient voices understanding. Maritza Betts APRN.ENMANUEL This note was partially generated using [employer] voice recognition system. Note was reviewed for accuracy. There may be minor misspellings or grammar miscues with [employer] voice recognition. documented in this encounter [facility] Evaluation note Diagnosis Fatigue, unspecified type- Primary Dizziness Dizziness and giddiness Screening for diabetes mellitus [facility] Diagnosis Well adult exam- Primary Routine general medical examination at a health care facility Chronic nonintractable headache, unspecified headache type Family history of early CAD Family history of ischemic heart disease Encounter for lipid screening for cardiovascular disease Screening for lipoid disorders [facility] Diagnosis URI, acute- Primary Acute upper respiratory infections of unspecified site Sore throat Acute pharyngitis ETD (Eustachian tube dysfunction), bilateral [facility] Diagnosis Viral bronchitis- Primary Acute bronchitis [facility] Diagnosis Bacterial pneumonia- Primary Bacterial pneumonia, unspecified [facility] Diagnosis Sore throat- Primary Acute pharyngitis Viral URI with cough Acute upper respiratory infections of unspecified site [facility] Diagnosis Well adult exam- Primary Routine general medical examination at a health care facility Chronic nonintractable headache, unspecified headache type Encounter for screening for diabetes mellitus Screening for diabetes mellitus Encounter for lipid screening for cardiovascular disease Screening for lipoid disorders [facility]* Diagnosis Sinobronchitis- Primary Unspecified sinusitis (chronic) Otitis media with effusion, left [facility]* Diagnosis Bacterial pneumonia- Primary Bacterial pneumonia, unspecified Acute cough Acute cough [facility] Diagnosis Well adult exam- Primary Routine general medical examination at a health care facility Chronic nonintractable headache, unspecified headache type Dizziness Dizziness and giddiness Snores Other dyspnea and respiratory abnormality Hypersomnolence Hypersomnia, unspecified Witnessed episode of apnea Family history of early CAD Family history of ischemic heart disease Encounter for lipid screening for cardiovascular disease Screening for lipoid disorders Encounter for screening for diabetes mellitus Screening for diabetes mellitus Stress reaction Unspecified acute reaction to stress [facility] Diagnosis CE (obstructive sleep apnea)- Primary Obstructive sleep apnea (adult) (pediatric) [facility]* Diagnosis Mixed hyperlipidemia- Primary Dizziness Dizziness and giddiness Family history of early CAD Family history of ischemic heart disease SOB (shortness of breath) Shortness of breath Stable angina (HCC) Other and unspecified angina pectoris Elevated blood pressure reading in office with diagnosis of hypertension [facility] Diagnosis Acute cough [facility] Diagnosis CE (obstructive sleep apnea)- Primary Obstructive sleep apnea (adult) (pediatric) Hypertension, unspecified type [facility]* Diagnosis Dizziness Dizziness and giddiness Family history of early CAD Family history of ischemic heart disease SOB (shortness of breath) Shortness of breath Stable angina (HCC) Other and unspecified angina pectoris documented in this encounter [facility] note* Diagnosis History of stress test- Primary Other specified conditions influencing health status H/O echocardiogram Other specified personal history presenting hazards to health documented in this encounter [facility] note* Diagnosis Mixed hyperlipidemia Dizziness Dizziness and giddiness Family history of early CAD Family history of ischemic heart disease SOB (shortness of breath) Shortness of breath documented in this encounter [facility] note* Diagnosis Well adult exam- Primary Routine general medical examination at a health care facility Encounter for screening for diabetes mellitus Screening for diabetes mellitus Mixed hyperlipidemia Medication management Encounter for long-term (current) use of other medications CE (obstructive sleep apnea) Obstructive sleep apnea (adult) (pediatric) documented in this encounter [facility] note* Diagnosis Well adult exam- Primary Routine general medical examination at a health care facility Mixed hyperlipidemia Chronic nonintractable headache, unspecified headache type Stress reaction Unspecified acute reaction to stress CE (obstructive sleep apnea) Obstructive sleep apnea (adult) (pediatric) Family history of early CAD Family history of ischemic heart disease Screening for depression Medication management Encounter for long-term (current) use of other medications Encounter for screening for diabetes mellitus Screening for diabetes mellitus documented in this encounter [facility] note* Diagnosis Encounter for screening for cardiovascular disorders- Primary Screening for other and unspecified cardiovascular conditions documented in this encounter [facility] for referral (narrative)* Diagnostic Procedure Only (Routine) - Pending Review Specialty Diagnoses / Procedures Referred By Gianni ag Referred To Contact [facility] Diagnoses Fatigue, unspecified type Procedures HOME SLEEP APNEA TEST (HSAT) SLEEP STD AIRFLOW HRT RATE&O2 SAT EFFORT UNAMaritza Redman APRN.CNP [address] [place] [address] [facility] [address] [place] [address] Referral ID Status Reason Start Date Expiration Date Visits Requested Visits Authorized [id number] Pending Review Auto-Generat ed Referral 12/02/2021 12/02/2022 1 1 * Outpatient Procedure (Routine) - Closed Specialty Diagnoses / Procedures Referred By Contac t Referred To Contact [facility] Diagnoses Dizziness Procedures ECG COMPLETE ECG ROUTINE ECG W/LEAST 12 LDS W/I&R Maritza Betts APRN.CNP [address] [place] [address] [facility] [place] [address] [place] [address] Referral ID Status Reason Start Date Expiration Date V isits Requested Visits Authorized [id number] Closed Auto-Generate d Referral 12/02/2021 12/02/2022 1 1 [facility] for referral (narrative)* Diagnostic Procedure Only (Routine) - Authorized Specialty Diagnoses / Procedures [facility] Diagnoses Snores Hypersomnolence Witnessed episode of apnea Procedures HOME SLEEP APNEA TEST (HSAT) SLEEP STD AIRFLOW HRT RATE&O2 SAT EFFORT UNATT Carlton Katz MD [address] [place] [address] [facility] [place] [address] [place] [id number] Referral ID Status Reason Start Date Expiration Date Visits Requested Visits Authorized [id number] Authorized Auto-Generat ed Referral 02/09/2024 08/09/2024 1 1 * Consult, Test, Treat (Routine) - Authorized Specialty Diagnoses / Procedures [facility] Referred To Contact Cardiology Diagnoses Family history of early CAD Procedures CONSULT TO CARDIOLOGY OFFICE/OUTPATIENT [facility] 60 MINUTES Carlton Katz MD [address] [place] [address] Referral ID Status Reason Start Date Expiration Date Visits Requested Visits Authorized [id number] Authorized PCP Requested Referral 02/09/2024 02/08/2025 1 1 [facility] for referral (narrative)* Diagnostic Procedure Only (Routine) - Authorized Specialty Diagnoses / Procedures Referred By Contac t Referred To Contact [facility] Diagnoses Dizziness Family history of early CAD SOB (shortness of breath) Stable angina (HCC) Procedures NM CARDIAC PERF STRESS/EXERCISE MYOCARDIAL SPECT MULTIPLE STUDIES Adeline Pillai, MACHINE I TRIMMER.ASSOCIATE PUBLISHER [address] [address] [facility] [address] [place] [address] Referral ID Status Reason Start Date Expiration Date Visits Requested Visits Authorized [id number] Authorized Auto-Generat ed Referral 04/15/2024 05/15/2025 1 1 * Outpatient Procedure (Routine) - Authorized Specialty Diagnoses / Procedures [facility] Diagnoses Mixed hyperlipidemia Dizziness Family history of early CAD SOB (shortness of breath) Procedures ECHO ECHO TTHRC R-T 2D W/WOM-MODE COMPL SPEC&COLR D Adeline Pillai, MACHINE I TRIMMER.ASSOCIATE PUBLISHER [address] [address] [facility] [place] [address] [place] [address] Referral ID Status Reason Start Date Expiration Date Visits Requested Visits Authorized [id number] Authorized Auto-Generat ed Referral 04/15/2024 04/15/2025 1 1 * Outpatient Procedure (Routine) - New Request Specialty Diagnoses / Procedures Referred By Contac t Referred To Contact [facility] Diagnoses Dizziness Procedures ECG COMPLETE ECG ROUTINE ECG W/LEAST 12 LDS W/I&R Adeline Pillai APRN.ASSOCIATE PUBLISHER [address] [address] [facility] [place] [address] [place] [address] Referral ID Status Reason Start Date Expiration Date Visits Requested Visits Authorized [id number] New Request Auto-Generat ed Referral 04/15/2024 04/15/2025 1 1 T [facility] for referral (narrative)* Diagnostic Procedure Only (Routine) - Closed Specialty Diagnoses / Procedures Referred By Contac t Referred To Contact [facility] Diagnoses Dizziness Family history of early CAD SOB (shortness of breath) Stable angina (HCC) Procedures NM CARDIAC PERF STRESS/EXERCISE MYOCARDIAL SPECT MULTIPLE STUDIES Adeline Pillai, MACHINE I TRIMMER.ASSOCIATE PUBLISHER [address] [facility] [address] [place] [address] [facility] [address] [place], [place] [id number] Referral ID Status Reason Start Date Expiration Date V isits Requested Visits Authorized [id number] Closed Auto-Generate d Referral 04/15/2024 05/15/2025 2 2 T [facility] for referral (narrative)* Outpatient Procedure (Routine) - Closed Specialty Diagnoses / Procedures Referred By Contac t Referred To Contact [facility] Diagnoses Mixed hyperlipidemia Dizziness Family history of early CAD SOB (shortness of breath) Procedures ECHO ECHO TTHRC R-T 2D W/WOM-MODE COMPL SPEC&COLR D Adeline Pillai, MACHINE I TRIMMER.ASSOCIATE PUBLISHER [address] [employer] [address] [place] [address] [facility] [place] [address] [place] [address] Referral ID Status Reason Start Date Expiration Date V isits Requested Visits Authorized [id number] Closed Auto-Generate d Referral 04/15/2024 04/15/2025 1 1 [facility] for visit Narrative* Diagnostic Procedure Only (Routine) - Closed Specialty Diagnoses / Procedures Referred By Contac t Referred To Contact [facility] Diagnoses Dizziness Family history of early CAD SOB (shortness of breath) Stable angina (HCC) Procedures NM CARDIAC PERF STRESS/EXERCISE MYOCARDIAL SPECT MULTIPLE STUDIES Adeline Pillai, MACHINE I TRIMMER.ASSOCIATE PUBLISHER [address] [facility] [address] [place] [address] [facility] [address] [id number] Referral ID Status Reason Start Date Expiration Date V isits Requested Visits Authorized [id number] Closed Auto-Generate d Referral 04/15/2024 05/15/2025 2 2 [facility] Outpatient Procedure (Routine) - Closed Specialty Diagnoses / Procedures Referred By Gianni ag Referred To [facility] Diagnoses Mixed hyperlipidemia Dizziness Family history of early CAD SOB (shortness of breath) Procedures ECHO ECHO TTHRC R-T 2D W/WOM-MODE COMPL SPEC&COLR D Adeline Pillai, MACHINE I TRIMMER.ASSOCIATE PUBLISHER [address] [facility] [address] [place] [address] [facility] [address] [place] [address] Referral ID Status Reason Start Date Expiration Date V isits Requested Visits Authorized [id number] Closed Auto-Generate d Referral 04/15/2024 04/15/2025 1 1 [facility] Summary Purpose Family History No Family History Records FoundNo Family History Records FoundNo Family History Records FoundNo Family History Records Found Advance Directives No Advanced Directives Records FoundNo Advanced Directives Records FoundNo Advanced Directives Records FoundNo Advanced Directives Records Found Reason for Referral Specialty Diagnoses / Procedures Referred By Gianni ag Referred To Contact Diagnoses CE (obstructive sleep apnea) Procedures CONSULT TO SLEEP MEDICINE - ADULT OFFICE/OUTPATIENT [facility] 60 MINUTES Keenan Lucas MD [address] [place] [address] Referral ID Status Reason Start Date Expiration Date Visits Requested Visits Authorized [id number] Authorized PCP Requested Referral 03/01/2024 03/01/2025 1 1 Additional Source Comments (unrecognized sect ion and content) No Status Records FoundNo Status Records FoundNo Status Records FoundNo Status Records Found INFORMATION SOURCE (unrecogn ized section and content) DATE CREATED AUTHOR 12/31/2018 [employer] [place] Agarwal DATE CREATED AUTHOR AUTHOR'S ORGANIZ ATION 06/02/2024 [facility] matthew DATE CREATED AUTHOR AUTHOR'S ORGANIZ ATION 02/10/2025 [facility] DATE CREATED AUTHOR AUTHOR'S ORGANIZ ATION 04/09/2025 [facility] Source Comments (unrecognize d section and content) In the event this informatio n is protected by the Federal Confidentiality of Alcohol and Drug Abuse Patient Records regulations: The Federal rules restrict any use of the information to criminally investigate or prosecute any alcohol or drug abuse patient.[facility] the event this information is protected by the Federal Confidentiality of Alcohol and Drug Abuse Patient Records regulations: The Federal rules restrict any use of the information to criminally investigate or prosecute any alcohol or drug abuse patient.[facility] HospitalIn the event this information is protected by the Federal Confidentiality of Alcohol and Drug Abuse Patient Records regulations: The Federal rules restrict any use of the information to criminally investigate or prosecute any alcohol or drug abuse patient.[facility] HospitalIn the event this information is protected by the Federal Confidentiality of Alcohol and Drug Abuse Patient Records regulations: The Federal rules restrict any use of the information to criminally investigate or prosecute any alcohol or drug abuse patient.[facility] the event this information is protected by the Federal Confidentiality of Alcohol and Drug Abuse Patient Records regulations: The Federal rules restrict any use of the information to criminally investigate or prosecute any alcohol or drug abuse patient.[facility] HospitalIn the event this information is protected by the Federal Confidentiality of Alcohol and Drug Abuse Patient Records regulations: The Federal rules restrict any use of the information to criminally investigate or prosecute any alcohol or drug abuse patient.[facility] HospitalIn the event this information is protected by the Federal Confidentiality of Alcohol and Drug Abuse Patient Records regulations: The Federal rules restrict any use of the information to criminally investigate or prosecute any alcohol or drug abuse patient.[facility] HospitalIn the event this information is protected by the Federal Confidentiality of Alcohol and Drug Abuse Patient Records regulations: The Federal rules restrict any use of the information to criminally investigate or prosecute any alcohol or drug abuse patient.[facility] HospitalIn the event this information is protected by the Federal Confidentiality of Alcohol and Drug Abuse Patient Records regulations: The Federal rules restrict any use of the information to criminally investigate or prosecute any alcohol or drug abuse patient.[facility] HospitalIn the event this information is protected by the Federal Confidentiality of Alcohol and Drug Abuse Patient Records regulations: The Federal rules restrict any use of the information to criminally investigate or prosecute any alcohol or drug abuse patient.[facility] HospitalIn the event this information is protected by the Federal Confidentiality of Alcohol and Drug Abuse Patient Records regulations: The Federal rules restrict any use of the information to criminally investigate or prosecute any alcohol or drug abuse patient.[facility] HospitalIn the event this information is protected by the Federal Confidentiality of Alcohol and Drug Abuse Patient Records regulations: The Federal rules restrict any use of the information to criminally investigate or prosecute any alcohol or drug abuse patient.[facility] HospitalIn the event this information is protected by the Federal Confidentiality of Alcohol and Drug Abuse Patient Records regulations: The Federal rules restrict any use of the information to criminally investigate or prosecute any alcohol or drug abuse patient.[facility] HospitalIn the event this information is protected by the Federal Confidentiality of Alcohol and Drug Abuse Patient Records regulations: The Federal rules restrict any use of the information to criminally investigate or prosecute any alcohol or drug abuse patient.[facility] HospitalIn the event this information is protected by the Federal Confidentiality of Alcohol and Drug Abuse Patient Records regulations: The Federal rules restrict any use of the information to criminally investigate or prosecute any alcohol or drug abuse patient.[facility] HospitalIn the event this information is protected by the Federal Confidentiality of Alcohol and Drug Abuse Patient Records regulations: The Federal rules restrict any use of the information to criminally investigate or prosecute any alcohol or drug abuse patient.[facility] HospitalIn the event this information is protected by the Federal Confidentiality of Alcohol and Drug Abuse Patient Records regulations: The Federal rules restrict any use of the information to criminally investigate or prosecute any alcohol or drug abuse patient.[facility] HospitalIn the event this information is protected by the Federal Confidentiality of Alcohol and Drug Abuse Patient Records regulations: The Federal rules restrict any use of the information to criminally investigate or prosecute any alcohol or drug abuse patient.[facility] HospitalIn the event this information is protected by the Federal Confidentiality of Alcohol and Drug Abuse Patient Records regulations: The Federal rules restrict any use of the information to criminally investigate or prosecute any alcohol or drug abuse patient.[facility] HospitalIn the event this information is protected by the Federal Confidentiality of Alcohol and Drug Abuse Patient Records regulations: The Federal rules restrict any use of the information to criminally investigate or prosecute any alcohol or drug abuse patient.[facility] HospitalIn the event this information is protected by the Federal Confidentiality of Alcohol and Drug Abuse Patient Records regulations: The Federal rules restrict any use of the information to criminally investigate or prosecute any alcohol or drug abuse patient.[facility] HospitalIn the event this information is protected by the Federal Confidentiality of Alcohol and Drug Abuse Patient Records regulations: The Federal rules restrict any use of the information to criminally investigate or prosecute any alcohol or drug abuse patient.[facility] HospitalIn the event this information is protected by the Federal Confidentiality of Alcohol and Drug Abuse Patient Records regulations: The Federal rules restrict any use of the information to criminally investigate or prosecute any alcohol or drug abuse patient.[facility] HospitalIn the event this information is protected by the Federal Confidentiality of Alcohol and Drug Abuse Patient Records regulations: The Federal rules restrict any use of the information to criminally investigate or prosecute any alcohol or drug abuse patient.[facility] HospitalIn the event this information is protected by the Federal Confidentiality of Alcohol and Drug Abuse Patient Records regulations: The Federal rules restrict any use of the information to criminally investigate or prosecute any alcohol or drug abuse patient.[facility] HospitalIn the event this information is protected by the Federal Confidentiality of Alcohol and Drug Abuse Patient Records regulations: The Federal rules restrict any use of the information to criminally investigate or prosecute any alcohol or drug abuse patient.[facility] HospitalIn the event this information is protected by the Federal Confidentiality of Alcohol and Drug Abuse Patient Records regulations: The Federal rules restrict any use of the information to criminally investigate or prosecute any alcohol or drug abuse patient.[facility] HospitalIn the event this information is protected by the Federal Confidentiality of Alcohol and Drug Abuse Patient Records regulations: The Federal rules restrict any use of the information to criminally investigate or prosecute any alcohol or drug abuse patient.[facility] HospitalIn the event this information is protected by the Federal Confidentiality of Alcohol and Drug Abuse Patient Records regulations: The Federal rules restrict any use of the information to criminally investigate or prosecute any alcohol or drug abuse patient.[facility] HospitalIn the event this information is protected by the Federal Confidentiality of Alcohol and Drug Abuse Patient Records regulations: The Federal rules restrict any use of the information to criminally investigate or prosecute any alcohol or drug abuse patient.[facility] HospitalIn the event this information is protected by the Federal Confidentiality of Alcohol and Drug Abuse Patient Records regulations: The Federal rules restrict any use of the information to criminally investigate or prosecute any alcohol or drug abuse patient.[facility] HospitalIn the event this information is protected by the Federal Confidentiality of Alcohol and Drug Abuse Patient Records regulations: The Federal rules restrict any use of the information to criminally investigate or prosecute any alcohol or drug abuse patient.[facility] HospitalIn the event this information is protected by the Federal Confidentiality of Alcohol and Drug Abuse Patient Records regulations: The Federal rules restrict any use of the information to criminally investigate or prosecute any alcohol or drug abuse patient.[facility] Reason for Visit (unrecogniz ed section and content) Reason Comments Blood Sugar Problem Reason Comments Physical Reason Comments Results Reason Comments Cough Cough, ear pressure and lost voice x 2 days Reason Comments Cough Chest congestion, rm dy aches, RAYGOZA, St x1 month Reason Comments Nasal Congestion drainage, cough, sor e throat, bodyache, chills and mouth is sore x 5 days Reason Comments Cough Chest congestion, SO B, headache, body aches, fever x 1 wk Reason Comments Cough Congestion and fever x4 weeks Reason Comments Physical Reason Comments Results Reason Comments PA Approved Reason Comments New Patient Reason Comments Sleep Apnea Specialty Diagnoses / Procedures Referred By Gianni ag Referred To Contact Diagnoses CE (obstructive sleep apnea) Procedures CONSULT TO SLEEP MEDICINE - ADULT OFFICE/OUTPATIENT NEW HIGH MDM 60 MINUTES Keenan Lucas MD [address] [place] [address] Referral ID Status Reason Start Date Expiration Date V isits Requested Visits Authorized [id number] Closed PCP Requested Referral 03/01/2024 03/01/2025 1 1 Reason Comments Radiology NM Reason Comments Prior Authorization-Approval Reason Onset Date Comments Refill Request 08/14/2024 Reason Comments [facility] Teams (unrecognized sec tion and content) Rubber Moulding Machine Operator Relationship Specialty Start Date End Date Carlton Katz MD [address] [place] [id number] PCP - General Family Practice 12/09/18 Rubber Moulding Machine Operator Relationship Specialty Start Date End Date Carlton Katz MD [address] [place] [id number] PCP - General Family Practice 12/09/18 Rubber Moulding Machine Operator Relationship Specialty Start Date End Date Carlton Katz MD [address] [place] [id number] PCP - General Family Practice 12/09/18 Rubber Moulding Machine Operator Relationship Specialty Start Date End Date Carlton Katz MD [address] [place] [id number] PCP - General Family Medicine 12/09/18 Rubber Moulding Machine Operator Relationship Specialty Start Date End Date Carlton Katz MD [address] [place] [id number] PCP - General Family Medicine 12/09/18 Rubber Moulding Machine Operator Relationship Specialty Start Date End Date Carlton Katz MD [address] [place] [phone] PCP - General Family Medicine 12/09/18 Rubber Moulding Machine Operator Relationship Specialty Start Date End Date Carlton Katz MD [address] [place] [phone] PCP - General Family Medicine 12/09/18 Rubber Moulding Machine Operator Relationship Specialty Start Date End Date Carlton Katz MD [address] [place] [address] PCP - General Family Medicine 12/09/18 Rubber Moulding Machine Operator Relationship Specialty Start Date End Date Carlton Katz MD [address] [place] [address] PCP - General Family Medicine 12/09/18 Rubber Moulding Machine Operator Relationship Specialty Start Date End Date Carlton Katz MD [address] [place] [address] PCP - General Family Medicine 12/09/18 Rubber Moulding Machine Operator Relationship Specialty Start Date End Date Carlton Katz MD [address] [place] [address] PCP - General Family Medicine 12/09/18 Rubber Moulding Machine Operator Relationship Specialty Start Date End Date Carlton Katz MD [address] [place] [address] PCP - General Family Medicine 12/09/18 Rubber Moulding Machine Operator Relationship Specialty Start Date End Date Carlton Katz MD [address] [place] [address] PCP - General Family Medicine 12/09/18 Rubber Moulding Machine Operator Relationship Specialty Start Date End Date Carlton Katz MD [address] [place] [address] PCP - General Family Medicine 12/09/18 Rubber Moulding Machine Operator Relationship Specialty Start Date End Date Carlton Katz MD [address] [place] [address] PCP - General Family Medicine 12/09/18 Rubber Moulding Machine Operator Relationship Specialty Start Date End Date Carlton Katz MD [address] [place] [address] PCP - General Family Medicine 12/09/18 Rubber Moulding Machine Operator Relationship Specialty Start Date End Date Carlton Katz MD [address] [place] [address] PCP - General Family Medicine 12/09/18 Rubber Moulding Machine Operator Relationship Specialty Start Date End Date Carlton Katz MD [address] [place] [address] PCP - General Family Medicine 12/09/18 Rubber Moulding Machine Operator Relationship Specialty Start Date End Date Carlton Katz MD [address] [place] [address] PCP - General Family Medicine 12/09/18 Rubber Moulding Machine Operator Relationship Specialty Start Date End Date Carlton Katz MD [address] [place] [address] PCP - General Family Medicine 12/09/18 Rubber Moulding Machine Operator Relationship Specialty Start Date End Date Carlton Katz MD [address] [place] [address] PCP - General Family Medicine 12/09/18 Rubber Moulding Machine Operator Relationship Specialty Start Date End Date Carlton Katz MD [address] [place] [address] PCP - General Family Medicine 12/09/18 Rubber Moulding Machine Operator Relationship Specialty Start Date End Date Carlton Katz MD [address] [place] [address] PCP - General Family Medicine 12/09/18 Rubber Moulding Machine Operator Relationship Specialty Start Date End Date Carlton Katz MD [address] [place] [address] PCP - General Family Medicine 12/09/18 Katy Santana APRN.ASSOCIATE PUBLISHER [address] [place] [address] Educational Assistant Teacher Family Medicine 07/16/24 Chandrika Yoo PA-C [address] [place] [address] Educational Assistant Teacher Family Medicine 07/16/24 Rubber Moulding Machine Operator Relationship Specialty Start Date End Date Carlton Katz MD [address] [place] [address] PCP - General Family Medicine 11/14/24 Katy Santana APRN.ASSOCIATE PUBLISHER [address] [place] [phone] Educational Assistant Teacher Family Medicine 07/16/24 Chandrika Yoo PA-C [address] [place] [address] Educational Assistant Teacher Family Medicine 07/16/24 Rubber Moulding Machine Operator Relationship Specialty Start Date End Date Carlton Katz MD [address] [place] [address] PCP - General Family Medicine 11/14/24 Katy Santana, AVRIL.ASSOCIATE PUBLISHER [facility] [place] [address] Educational Assistant Teacher Family Medicine 07/16/24 12/25/24 Chandrika Yoo PA-C [address] [place] [address] Educational Assistant Teacher Family Medicine 07/16/24 Rubber Moulding Machine Operator Relationship Specialty Start Date End Date Carlton Katz MD [address] [place] [address] PCP - General Family Medicine 11/14/24 Katy Santana, AVRIL.ASSOCIATE PUBLISHER [address] [place] [phone] Educational Assistant Teacher Family Medicine 01/09/25 Chandrika Yoo PA-C [facility] [place] [address] Educational Assistant Teacher Family Medicine 01/09/25 Rubber Moulding Machine Operator Relationship Specialty Start Date End Date Carlton aKtz MD [address] [place] [address] PCP - General Family Medicine 11/14/24 Katy Santana, AVRIL.ASSOCIATE PUBLISHER [address] [place] [phone] Educational Assistant Teacher Family Medicine 01/09/25 Chandrika Yoo PA-C [facility] [place] [address] Educational Assistant Teacher Family Medicine 01/09/25 Rubber Moulding Machine Operator Relationship Specialty Start Date End Date Carlton Katz MD [address] [place] [address] PCP - General Family Medicine 11/14/24 Katy Santana, MACHINE I TRIMMER.ASSOCIATE PUBLISHER [address] [place] [address] [facility] 01/09/25 Chandrika Yoo PA-C [address] [place], [place] [id number] [facility] 01/09/25 FOR RECORDS PERTAINING TO PATIENTS WHO ARE OR HAVE BEEN ENROLLED IN A CHEMICAL DEPENDENCY/SUBSTANCEABUSE PROGRAM, SOME INFORMATION MAY BE OMITTED. This clinical summary was aggregated from multiple sources. Caution should be exercised in using it in the provision of clinical care. This summary normalizes information from multiple sources, and as a consequence, information in this document may materially change the coding, format and clinical context of patient data. In addition, data may be omitted in some cases. CLINICAL DECISIONS SHOULD BE BASED ON THE PRIMARY CLINICAL RECORDS. [facility]. provides no warranty or guarantee of the accuracy or completeness of information in this document.
--- NOTE | 2025-04-27 07:34 | CA.SCORE ---
Calcium Scoring Date of Study:: 04/18/25 Indications Indications: Screening Coronary Calcium Scoring: High-resolution Computed Tomographic imaging of the chest was performed on [04/18/2025], with particular attention paid to the coronary arteries. Images from the examination were analyzed for the presence and extent of coronary artery calcification , using coronary calcium quantification software. The patient tolerated the procedure well and there were no complications. The results of the coronary calcification analysis are provided below. Findings Coronary Artery Left Main (LM): 0 Left Anterior Descending (LAD): 0 Left Circumflex (LCX): 0 Right Coronary Artery (RCA): 0 Total Agatston Score: 0 Percentile Rankin Calcium Scoring Interpretation: Different methods to categorize the overall amount of coronary plaque. Overall amount CAC SIS Visual of coronary plaque P1 Mild -100 <2 1-2 vessels with mild amount of plaque P2 Moderate 101-300 3-4 1-2 vessels with moderate amount, 3 vessels with mild amount of plaque P3 Severe 301-999 5-7 3 vessels with moderate amount, 1 vessel with severe amount of plaque P4 Extensive >1000 >8 2-3 vessels with severe amount of plaque Conclusion: No atherosclerotic plaquing noted
== END | disposition home or self-care (01) ==
PROVIDERS: PCP Family Medicine; Referring Provider Family Medicine; Visit Provider Family Medicine
DX: Z13.6 Encounter for screening for cardiovascular disorders (principal)
CPT/HCPCS: 75571; 76380

== ENCOUNTER → 2025-07-31 | Outpatient (CLI) | payer OTHER, SELFPAY ==
[2025-07-31 09:22] LABS: Hematocrit 42.8 % (40-54); Hemoglobin 15.3 g/dL (13.0-16.5); Immature Granulocytes Count 0.010 X10^3/uL (0.0-0.0); Mean Corp Hgb Conc 35.7 g/dL (32-36); Mean Corpuscular Volume 86.1 fL (80-94); Mean Platelet Vol. 10.9 fl (6.2-12.0); NRBC Flagged by Analyzer 0 % (0-5); Platelet Count 191 K/mm3 (150-450); RBC Distribution Width CV 11.2 % (11.6-14.6); RBC Distribution Width SD 34.5 fl (35.1-43.9); Red Blood Count 4.97 M/mm3 (4.6-6.2); White Blood Count 3.1 K/mm3 (4.4-11.0)
[2025-07-31 10:08] LABS: AST(SGOT) 33 U/L (<=37); Alanine Aminotransfer ALT/SGPT 52 U/L (<=46); Albumin, Serum 4.1 g/dL (3.5-5.0); Alkaline Phosphatase 87 U/L (40-129); Anion Gap 11 (5-15); BUN 12 mg/dL (4-19); BUN/Creat Ratio 14.3 RATIO (10-20); Calcium,Total 9.3 mg/dL (7.6-11.0); Carbon Dioxide 26.6 mmol/L (21.0-32.0); Chloride 102 mmol/L (98-108); Cholesterol 173 mg/dL (<=200); Globulin 2.8 g/dL (2.2-4.2); Glucose 101 mg/dL (70-99); Low Density Lipoprotein Calc. 125 mg/dL; Potassium 3.8 mmol/L (3.3-5.1); T4 Total, Thyroxin 6.3 ug/dL (4.5-12.1); Triglycerides 80 mg/dL; Very Low Density Lipoprotein 16 mg/dL (5-40); Vitamin B12 1696 pg/mL (180-914); cholesterol:hdl ratio screen 5.31
[2025-08-01 04:07] LABS: PROGESTERONE 0.4 ng/mL (0.0-0.5)
[2025-08-05 14:08] LABS: Estrogen, Total, Serum 135 pg/mL (56-213); Testosterone, % Free 2.26 % (1.50-4.20); Testosterone, Free 11.48 ng/dL (5.00-21.00)
== END | disposition home or self-care (01) ==
LOC: LAB 08:09
PROVIDERS: PCP Family Medicine
DX: F41.9 Anxiety disorder, unspecified (principal); R53.83 Other fatigue; I10 Essential (primary) hypertension; N52.9 Male erectile dysfunction, unspecified
CPT/HCPCS: 36415; 80053; 80061; 82607; 82672; 83036; 84144; 84402; 84403; 84436; 84443; 85025